=== PATIENT | female | born 1995 | race Caucasian/White ===

== ENCOUNTER 2022-07-03 12:27 | Outpatient (CLI) | payer MEDICAID, SELFPAY ==
[2022-07-03 14:33] LABS: Basophils Percent Auto 0.2 % (0.2-1.2); Eosinophils Absolute Auto 0.1 K/mm3 (0-0.3); Hematocrit 32.4 % (37.0-47.0); Hemoglobin 10.7 g/dL (12.0-15.0); Immature Granulocyte Absolute 0.07 K/mm3 (0.00-0.031); Immature Granulocyte Percent A 0.9 % (0-0.5); Lymphocytes Absolute Auto 1.82 K/mm3 (0.9-3.2); Lymphocytes Percent Auto 22.3 % (18.3-44.2); Mean Corpuscular Volume 87.8 fl (80-100); Mean Platelet Volume 9.2 fl (7.4-10.4); Monocytes Absolute Auto 0.7 K/mm3 (0.1-0.6); Monocytes Percent Auto 8.2 % (2.6-8.5); Neutrophils Absolute Auto 5.5 K/mm3 (1.3-6.7); Neutrophils Percent Auto 67.4 % (45.5-73.1); Platelet Count Result 200 k/mm3 (150-375); Red Blood Count 3.69 M/mm3 (4.2-5.4); Red Cell Distribution Width 12.3 % (11.5-14.5); White Blood Count 8.2 K/mm3 (4.5-10.0)
[2022-07-03 14:41] LABS: Glucose 1 Hour PP 50gm Dose 109 mg/dL
[2022-07-03 17:46] LABS: HIV 1/2 Ab P24 Ag 1.35
[2022-07-03 17:52] LABS: HIV 1/2 Ab P24 Ag Result Reactive (Negative)
[2022-07-03 21:38] LABS: HIVc Retest 1 1.43; HIVc Retest 2 1.43
[2022-07-06 14:26] LABS: HIV 1 2 Ag Ab 4th Gen w Rflxs Non-reactive (Non-reactive)
== END 2022-07-03 12:28 | disposition home or self-care (01) ==
LOC: ANHLAB 12:30
PROVIDERS: Visit Provider Student in an Organized Health Care Education/Training Program
DX: Z34.90 Encounter for supervision of normal pregnancy, unspecified, unspecified trimester (principal)
CPT/HCPCS: 36415; 82947; 85025; 86703; 87389; G0432

== ENCOUNTER 2022-07-07 10:31 | Observation (INO) | payer OTHER, SELFPAY ==
[2022-07-07 10:46] VITALS: BP 131/82; PULSE 93
[2022-07-07 10:47] VITALS: BMI 28.2
--- NOTE | 2022-07-07 10:47 | LDADM ---
This patient, Megan Granda, was admitted to OB Post 117 on 07/07/22 at 10:31. Plans for labor, pain management and were discussed with patient. Patient/family oriented to hospital policies and general routines including ID bracelet, bed and alarms, visiting hours, pain management, procedures, bathroom and other care routines, personal items, smoking policy, room service/diet and guest tray routines, security routines, and visiting hours. Patient/Family are encouraged to report perceived risks to care and to ask questions if they do not understand what they are told or what they should do. See OBIX for further documentation.
[2022-07-07 10:54] VITALS: BP 110/81; PULSE 102
--- NOTE | 2022-07-07 11:06 | PC.NURSE ---
Patient came in with mild vaginal spotting. Not enough to wear a pantyliner. Obtained NST and called Dr. Le to update on patient status. Verbal orders to discharge patient. Per Dr. Le, patient to return to OB if bleeding saturates two pads in under an hour. Patient to follow up in office. Patient verbalizes understanding of care plan and has no questions at this time.
--- NOTE | 2022-07-10 13:06 | PM.OBTRLD ---
OB - Triage/Final Diagnosis Visit Information Date of evaluation: 07/07/22 Reason for evaluation: threatened labor Comments/Additional reasons for admission: I have assessed the risk for this patient, Megan Granda, and determined that she would benefit from observation care.
== END 2022-07-07 11:15 | disposition home or self-care (01) ==
PROVIDERS: Admitting Provider Student in an Organized Health Care Education/Training Program; Visit Provider Student in an Organized Health Care Education/Training Program
DX: O47.03 False labor before 37 completed weeks of gestation, third trimester (principal); Z3A.30 30 weeks gestation of pregnancy
CPT/HCPCS: G0378; G0379

== ENCOUNTER 2022-09-05 15:57 | Inpatient (IN) | payer OTHER, SELFPAY ==
[2022-09-05] VITALS (15 sets, daily range): BP systolic 115–141; BP diastolic 63–91; PULSE 79–96; RESP 16–18; TEMP 36.4–36.8; BMI 30.8
--- NOTE | 2022-09-05 16:29 | LDADM ---
This patient, Megan Granda, was admitted to Labor/Delivery/Recovery 103 on 09/05/22 at 15:57. Plans for labor, pain management and were discussed with patient. Patient/family oriented to hospital policies and general routines including ID bracelet, bed and alarms, visiting hours, pain management, procedures, bathroom and other care routines, personal items, smoking policy, room service/diet and guest tray routines, infant security routines, and visiting hours. Patient/Family are encouraged to report perceived risks to care and to ask questions if they do not understand what they are told or what they should do. See OBIX for further documentation.
[2022-09-05 16:31] LABS: Basophils Percent Auto 0.1 % (0.2-1.2); Eosinophils Percent Auto 0.2 % (0-4.4); Hematocrit 33.3 % (37.0-47.0); Hemoglobin 11.1 g/dL (12.0-15.0); Immature Granulocyte Absolute 0.04 K/mm3 (0.00-0.031); Immature Granulocyte Percent A 0.4 % (0-0.5); Lymphocytes Absolute Auto 1.83 K/mm3 (0.9-3.2); Lymphocytes Percent Auto 19.4 % (18.3-44.2); Mean Corpuscular HGB Conc 33.3 g/dl (32-36); Mean Corpuscular Hemoglobin 29.2 pg (26-34); Mean Corpuscular Volume 87.6 fl (80-100); Monocytes Absolute Auto 0.8 K/mm3 (0.1-0.6); Monocytes Percent Auto 8.8 % (2.6-8.5); Neutrophils Absolute Auto 6.7 K/mm3 (1.3-6.7); Neutrophils Percent Auto 71.1 % (45.5-73.1); Platelet Count Result 244 k/mm3 (150-375); White Blood Count 9.4 K/mm3 (4.5-10.0)
[2022-09-05] MEDS: DINOPROSTONE 10 MG VAG INSERT VAGINAL (16:56)
--- NOTE | 2022-09-05 18:48 | WPDANESEPP ---
Anes - Eval Pre Procedure Procedure: Labor Epidural Date/Time: 09/05/22 18:48 Surgeon: Graeme Preop Diagnosis: Pain c contractions Pre Op Diagnosis: IOL Patient Data Age: 26 Gender: F Height: 1.65 m Weight: 84 kg Last Vital Signs Temp 36.6 C 09/05/22 16:27 Pulse 81 09/05/22 18:45 Resp 18 09/05/22 16:27 BP 132/72 09/05/22 18:45 Allergies Allergy/AdvReac Type Severity Reaction Status Date / Time No Known Allergies Allergy Verified 08/31/22 10:38 Home Medications Medication Instructions Recorded Confirmed Type prenat.vits,mimi,wnw-hmih-ckrnw 1 tablet PO DAILY 06/20/22 09/05/22 History Laboratory Tests 09/05/22 09/05/22 09/05/22 16:23 16:23 16:23 WBC 9.4 K/mm3 K/mm3 (4.5-10.0) RBC 3.80 M/mm3 L M/mm3 (4.2-5.4) Hgb 11.1 g/dL L g/dL (12.0-15.0) Hct 33.3 % L % (37.0-47.0) MCV 87.6 fl fl (80-100) MCH 29.2 pg pg (26-34) MCHC 33.3 g/dl g/dl (32-36) RDW 13.0 % % (11.5-14.5) Plt Count 244 k/mm3 k/mm3 (150-375) MPV 10.0 fl fl (7.4-10.4) Immature Gran % (Auto) 0.4 % % (0-0.5) Neut % (Auto) 71.1 % % (45.5-73.1) Lymph % (Auto) 19.4 % % (18.3-44.2) [place] % (Auto) 8.8 % H % (2.6-8.5) Eos % (Auto) 0.2 % % (0-4.4) Baso % (Auto) 0.1 % L % (0.2-1.2) Lymph # (Auto) 1.83 K/mm3 K/mm3 (0.9-3.2) [place] # (Auto) 0.8 K/mm3 H K/mm3 (0.1-0.6) Eos # (Auto) 0.0 K/mm3 K/mm3 (0-0.3) Baso # (Auto) 0.0 K/mm3 K/mm3 (0.0-0.1) Abs Immat Gran (auto) 0.04 K/mm3 H K/mm3 (0.00-0.031) Absolute Neuts (auto) 6.7 K/mm3 K/mm3 (1.3-6.7) Absolute Nucleated RBC 0.0 K/mm3 K/mm3 (0.0-0.012) Nucleated RBC % 0.0 % % (0.0-0.2) RPR Pending Blood Type O Positive Antibody Screen Negative Patient hx anesthesia problems: none Family hx anesthesia problems: none Results Review: All pre-operative results and documents have been reviewed as part of the pre-operative evaluation. 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
[2022-09-05] MEDS: LACTATED RINGERS 1,000 ML 125 ML IV CONT (19:11)
[2022-09-06] VITALS (9 sets, daily range): BP systolic 126–149; BP diastolic 78–93; PULSE 71–91; RESP 16–18; TEMP 36.6–36.9
[2022-09-06] MEDS: miSOPROStol 25 MCG TABLET VAGINAL (06:35)
--- NOTE | 2022-09-06 12:09 | PM.IMHP ---
H&P: HPI History of Present Illness Date/Time: 09/06/22 12:09 Chief Complaint: Intrauterine at term Narrative: 26-year-old G1 who presents for elective induction of labor at term Review of Systems Cardiovascular: Cardiovascular: Denies chest pain, Denies leg edema, Denies palpitations, Denies dyspnea and Denies dyspnea on exertion Respiratory: Respiratory: Denies cough, Denies dyspnea and Denies dyspnea on exertion Gastrointestinal: Gastrointestinal: Denies abdominal pain, Denies constipation, Denies diarrhea, Denies nausea and Denies vomiting Genitourinary: Genitourinary: Denies hematuria, Denies urinary frequency, Denies dysuria, Denies pelvic pain, Denies urinary incontinence and Denies vaginal discharge Neurologic: Reports system reviewed and no additional complaints, except as documented Psychiatric: Psychiatric: Reports no additional psychiatric complaints Endocrine: Endocrine: Denies palpitations PMFSH Family History Family History Grandparent Heart disease Lung cancer Social History Social History Smoking status: Never smoker Alcohol intake: never Substance use: never Lack of Transportation: No Lack of Food: Never True Current Housing: I Have Housing Concerned About Future Housing: No Difficulty Paying Gas/Electric Bills: No Difficulty Paying for Meds: No Currently Unemployed: No Education: Associate Degree Difficulty w/ Childcare or Family Care: No Occupation/Education: occupation 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 Gender identity (if verbalized by the patient): Female Sexual Orientation (if Verbalized by the Patient): Straight or Heterosexual Spiritual care concerns: No Meds Home Medications and Allergies Home Medications Medication Instructions Recorded Confirmed Type prenat.vits,mimi,jxo-xbob-skklt 1 tablet PO DAILY 06/20/22 09/05/22 History Allergies Allergy/AdvReac Type Severity Reaction Status Date / Time No Known Allergies Allergy Verified 08/31/22 10:38 Vital Signs Vital Signs - 24 hr 09/05/22 16:27 09/05/22 16:30 09/05/22 16:45 Temperature 97.8 F Pulse Rate 94 95 96 Respiratory Rate 18 Blood Pressure 124/83 126/74 141/88 H Oxygen Delivery 09/05/22 16:58 09/05/22 17:00 09/05/22 17:15 Temperature Pulse Rate 84 83 87 Respiratory Rate Blood Pressure 123/76 125/82 115/71 Oxygen Delivery 09/05/22 17:30 09/05/22 17:45 09/05/22 18:00 Temperature Pulse Rate 87 87 91 Respiratory Rate Blood Pressure 119/63 141/84 H 126/81 Oxygen Delivery 09/05/22 18:15 09/05/22 18:30 09/05/22 18:45 Temperature Pulse Rate 86 82 81 Respiratory Rate Blood Pressure 118/76 125/63 132/72 Oxygen Delivery 09/05/22 19:00 09/05/22 20:00 09/05/22 20:01 Temperature 98.3 F 97.5 F L Pulse Rate 79 89 Respiratory Rate 18 16 Blood Pressure 125/64 139/91 H Oxygen Delivery 09/06/22 00:04 09/06/22 00:15 09/06/22 00:30 Temperature 97.8 F Pulse Rate 71 85 73 Respiratory Rate 18 Blood Pressure 141/91 H 126/82 139/83 Oxygen Delivery 09/06/22 00:45 09/06/22 01:00 09/06/22 01:15 Temperature Pulse Rate 75 84 74 Respiratory Rate Blood Pressure 137/78 138/93 H 140/91 H Oxygen Delivery 09/06/22 01:20 09/06/22 02:38 09/06/22 11:31 Temperature 98.5 F Pulse Rate 74 91 Respiratory Rate 16 16 Blood Pressure 149/93 H Oxygen Delivery Room Air Exam Const: General: no acute distress Eyes: EOM: EOMs intact bilaterally Neck: Neck: supple Thyroid: thyroid normal Chest: Breast/axilla inspection: normal inspection of the breasts Breast/axilla palpation: normal palpation of the breasts, normal palpation of the axillae and no axillary lymphadenopathy Resp: Effort & Inspection: normal respiratory effort Auscultation: cl
--- NOTE | 2022-09-06 12:43 | PM.OBDSVD ---
DS: Admitting Diagnosis Discharge Date 09/06/22 Admitting Diagnosis intrauterine at term DS: Discharge Diagnosis Discharge Diagnosis (1) Supervision of high risk , unspecified, third trimester: Code(s): O09.93 - Supervision of high risk , unspecified, third trimester Status: Acute OB - DS: Summary Hospital Course Hospital Course: 26-year-old G1 who presented for elective induction labor at 39 weeks 3 days. Patient was admitted for Cervidil induction of labor. Patient's cervix was found to be unfavorable after 1 dose of Cervidil. Patient then received 1 dose of vaginal Cytotec. The cervix remained unchanged and unfavorable. Discussed induction plan with patient. Patient was offered to continue with induction with another dose of Cervidil or 2 declined to continue induction of labor and be discharged home for further follow-up. Patient and discussed options privately. Patient elected not to continue with induction of labor. Patient would like to be discharged home. Labor precautions were discussed at length with patient. Patient will continue to have twice weekly NSTs performed. OB Procedures : None OB Procedures Intrapartum: Other ( cervical ripening attempted) OB Procedures: : None Status at Discharge Functional status at discharge: independent ambulation Overall status at discharge: patient is back to baseline Time Spent with Patient Time attestation: Total time spent providing and/or coordinating discharge services: Time spent: Greater than 30 minutes Exam Const: General: cooperative, healthy appearing, comfortable and no acute distress Resp: Effort & Inspection: normal respiratory effort and able to speak in complete sentences Cardio: Rate: regular rate GI: Inspection: normal to inspection GI Palp: Yes Soft to palpation and No Tenderness to palpation present (GI) : Manual OB Exam: dilated 1 cm, effaced 50% and station high DS: Data Data Completed and Pending Labs on day of discharge: Labs from last 24 hours 09/05/22 09/05/22 09/05/22 16:23 16:23 16:23 WBC 9.4 RBC 3.80 L Hgb 11.1 L Hct 33.3 L MCV 87.6 MCH 29.2 MCHC 33.3 RDW 13.0 Plt Count 244 MPV 10.0 Immature Gran % (Auto) 0.4 Neut % (Auto) 71.1 Lymph % (Auto) 19.4 [place] % (Auto) 8.8 H Eos % (Auto) 0.2 Baso % (Auto) 0.1 L Lymph # (Auto) 1.83 [place] # (Auto) 0.8 H Eos # (Auto) 0.0 Baso # (Auto) 0.0 Abs Immat Gran (auto) 0.04 H Absolute Neuts (auto) 6.7 Absolute Nucleated RBC 0.0 Nucleated RBC % 0.0 RPR Pending Blood Type O Positive Antibody Screen Negative Discharge Plan Discharge Discharging Clinician: Rivera Le Anticipated Discharge Date/Time: 09/06/22 12:08 Patient Disposition: Home, Self-Care Activity: as tolerated Diet: as tolerated Discharge Instructions: OB ANTEPARTUM DISCHARGE INSTRUCTIONS This information is given to help you properly care for yourself at home after your discharge from the hospital. Follow these instructions until your doctor tells you otherwise. DIET: Additional Diet Instructions: ACTIVITY: Additional Activity Instructions: RETURN TO LABOR AND DELIVERY IF YOU HAVE: Additional Reasons to Return to Labor and Delivery: Contractions may feel like abdominal pain, tightening, cramping, pressure, back ache, or thigh ache. FOLLOW-UP CARE: To see in/on Valuables released to patient or family? Medications from home returned to patient? IF YOU HAVE ANY QUESTIONS REGARDING THESE INSTRUCTIONS, PLEASE CALL [phone]. IF PROBLEMS ARISE, CALL YOUR PROVIDER. IF EMERGENCY CARE IS NEEDED, [facility]S EMERGENCY ROOM IS AVAILABLE 24 HOURS A DAY. Stand Alone Forms: General Discharge Information Follow-up/Referrals: Rivera Le MD [Physician] - Discharge Medications: Continued p
[2022-09-06 16:45] LABS: Rapid Plasma Reagin Non-Reactive (NonReactive)
== END 2022-09-06 12:13 | disposition home or self-care (01) | DRG 566 ==
PROVIDERS: Admitting Provider Student in an Organized Health Care Education/Training Program; Visit Provider Student in an Organized Health Care Education/Training Program
DX: O34.43 Maternal care for other abnormalities of cervix, third trimester (principal)
CPT/HCPCS: 36415; 85025; 86592; 86850; 86900; 86901; A9270; J7120

== ENCOUNTER 2022-09-14 09:23 | Outpatient (RCR) | payer OTHER, SELFPAY ==
[2022-08-24 12:36] VITALS: BP 126/84; PULSE 88
[2022-08-28 11:53] VITALS: BP 126/71; PULSE 82
[2022-08-31 11:52] VITALS: BP 134/85; PULSE 82
[2022-09-04 12:03] VITALS: BP 128/84; PULSE 90
[2022-09-07 09:54] VITALS: BP 139/77; PULSE 100
[2022-09-09 10:34] VITALS: BP 138/81; PULSE 82
[2022-09-11 11:51] VITALS: BP 136/80; PULSE 92
[2022-09-14 09:58] VITALS: BP 130/85; PULSE 74
== END 2022-10-21 19:51 | disposition home or self-care (01) ==
LOC: ANHOBOP 09:23
PROVIDERS: Visit Provider Student in an Organized Health Care Education/Training Program
DX: O43.893 Other placental disorders, third trimester (principal); Z3A.37 37 weeks gestation of pregnancy; Z3A.38 38 weeks gestation of pregnancy; Z3A.39 39 weeks gestation of pregnancy; Z3A.40 40 weeks gestation of pregnancy
CPT/HCPCS: 59025

== ENCOUNTER 2022-09-15 21:09 | Inpatient (IN) | payer OTHER, SELFPAY ==
[2022-09-15 21:30] VITALS: BMI 31.1
[2022-09-16] VITALS (285 sets, daily range): BP systolic 87–198; BP diastolic 51–163; PULSE 29–159; RESP 12–22; TEMP 36.8–37.7; O2SAT 81–100
[2022-09-16] MEDS: LACTATED RINGERS 1,000 ML 125 ML IV CONT ×3 (00:10→12:40)
[2022-09-16] MEDS: fentaNYL CITRATE INJ (*CRX) 100 MCG/2 ML VIAL IV PUSH (00:10)
[2022-09-16 00:20] LABS: Basophils Percent Auto 0.1 % (0.2-1.2); Eosinophils Percent Auto 0.1 % (0-4.4); Hematocrit 35.7 % (37.0-47.0); Hemoglobin 12.3 g/dL (12.0-15.0); Immature Granulocyte Percent A 0.7 % (0-0.5); Lymphocytes Absolute Auto 2.45 K/mm3 (0.9-3.2); Lymphocytes Percent Auto 16.3 % (18.3-44.2); Mean Corpuscular HGB Conc 34.5 g/dl (32-36); Mean Corpuscular Hemoglobin 29.6 pg (26-34); Mean Corpuscular Volume 85.8 fl (80-100); Mean Platelet Volume 10.4 fl (7.4-10.4); Monocytes Absolute Auto 1.2 K/mm3 (0.1-0.6); Monocytes Percent Auto 8.2 % (2.6-8.5); Neutrophils Absolute Auto 11.2 K/mm3 (1.3-6.7); Neutrophils Percent Auto 74.6 % (45.5-73.1); Platelet Count Result 270 k/mm3 (150-375); Red Blood Count 4.16 M/mm3 (4.2-5.4); Red Cell Distribution Width 12.6 % (11.5-14.5); White Blood Count 15.1 K/mm3 (4.5-10.0)
--- NOTE | 2022-09-16 00:35 | WPDANESEPP ---
Anes - Eval Pre Procedure Procedure: Labor epidural Date/Time: 09/16/22 00:35 Surgeon: Rickey Preop Diagnosis: Abdominal pain with contractions Pre Op Diagnosis: Labor Patient Data Age: 26 Gender: F Height: 1.65 m Weight: 85 kg Last Vital Signs Pulse Ox 95 09/16/22 00:33 Allergies Allergy/AdvReac Type Severity Reaction Status Date / Time No Known Allergies Allergy Verified 09/11/22 10:38 Home Medications Medication Instructions Recorded Confirmed Type prenat.vits,mimi,qco-ynle-jtsdp 1 tablet PO DAILY 06/20/22 09/09/22 History Laboratory Tests 09/16/22 09/16/22 00:13 00:13 WBC 15.1 K/mm3 H K/mm3 (4.5-10.0) RBC 4.16 M/mm3 L M/mm3 (4.2-5.4) Hgb 12.3 g/dL g/dL (12.0-15.0) Hct 35.7 % L % (37.0-47.0) MCV 85.8 fl fl (80-100) MCH 29.6 pg pg (26-34) MCHC 34.5 g/dl g/dl (32-36) RDW 12.6 % % (11.5-14.5) Plt Count 270 k/mm3 k/mm3 (150-375) MPV 10.4 fl fl (7.4-10.4) Immature Gran % (Auto) 0.7 % H % (0-0.5) Neut % (Auto) 74.6 % H % (45.5-73.1) Lymph % (Auto) 16.3 % L % (18.3-44.2) [place] % (Auto) 8.2 % % (2.6-8.5) Eos % (Auto) 0.1 % % (0-4.4) Baso % (Auto) 0.1 % L % (0.2-1.2) Lymph # (Auto) 2.45 K/mm3 K/mm3 (0.9-3.2) [place] # (Auto) 1.2 K/mm3 H K/mm3 (0.1-0.6) Eos # (Auto) 0.0 K/mm3 K/mm3 (0-0.3) Baso # (Auto) 0.0 K/mm3 K/mm3 (0.0-0.1) Abs Immat Gran (auto) 0.10 K/mm3 H K/mm3 (0.00-0.031) Absolute Neuts (auto) 11.2 K/mm3 H K/mm3 (1.3-6.7) Absolute Nucleated RBC 0.0 K/mm3 K/mm3 (0.0-0.012) Nucleated RBC % 0.0 % % (0.0-0.2) RPR Pending : gestational age HCG: positive Patient hx anesthesia problems: none Family hx anesthesia problems: none Results Review: All pre-operative results and documents have been reviewed as part of the pre-operative evaluation. [facility] Past Medical History Medical History Anxiety and depression Asthma Overweight (BMI 25.0-29.9) and not yet delivered Family History Family History Grandparent Heart disease Lung cancer Social History Social History Smoking status: Never smoker Alcohol intake: never Substance use: never Lack of Transportation: No Lack of Food: Never True Current Housing: I Have Housing Concerned About Future Housing: No Difficulty Paying Gas/Electric Bills: No Difficulty Paying for Meds: No Currently Unemployed: No Education: Associate Degree Difficulty w/ Childcare or Family Care: No Occupation/Education: occupation 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
[2022-09-16] MEDS: LACTATED RINGERS 500 ML 999 ML IV CONT (00:50)
[2022-09-16] MEDS: TERBUTALINE SULFATE 1 MG/ML VIAL 0.25 MG SUB-Q (01:25)
[2022-09-16] MEDS: ONDANSETRON INJ 4 MG/2 ML VIAL IV PUSH ×2 (01:29→12:09)
--- NOTE | 2022-09-16 03:17 | LDADM ---
This patient, Megan Granda, was admitted to Labor/Delivery/Recovery 105 on 09/15/22 at 21:09. Plans for labor, pain management and were discussed with patient. Patient/family oriented to hospital policies and general routines including ID bracelet, bed and alarms, visiting hours, pain management, procedures, bathroom and other care routines, personal items, smoking policy, room service/diet and guest tray routines, infant security routines, and visiting hours. Patient/Family are encouraged to report perceived risks to care and to ask questions if they do not understand what they are told or what they should do. See OBIX for further documentation.
[2022-09-16] MEDS: OXYTOCIN 30 UNITS/NS 500 ML 30 UNITS/500 ML BAG IV CONT (07:33)
[2022-09-16] MEDS: ceFAZolin 2 GM/D5W 50 ML 2 GM/50 ML BAG IVPB (13:34)
--- NOTE | 2022-09-16 14:24 | WPDHPUPDATE1 ---
History and Physical Update Update Date/Time: 09/16/22 14:24 Assessment: 1. 40 week intrauterine 2. Arrest of dilation Plan: 1. Proceed with primary low-transverse section History and Physical has been reviewed, including an updated exam of the patient. There are NO changes in the patient's condition. Risks, benefits, and alternatives have been discussed and questions answered. Patient agrees to proceed with procedure.
--- NOTE | 2022-09-16 14:25 | P.PCNOB_ITS ---
OB - Delivery Note Procedure Procedure: Procedures Operation Date: 09/16/22 13:45 <No data on this case meets the specified criteria> Intrapartal Events: Arrest of Dilation Induction method: None Delivery augmentation: Rupture of Membranes and Pitocin Delivery monitor: Internal FHT and Internal Uterine Route of delivery: Prior to decision for section, ACOG/SM labor guidelines were considered and discussed with the patient and staff. Decision made to proceed with the section.: Yes Specimen: Yes Quantitative Blood Loss (ml): 675 Anesthesia type: Epidural Disposition: Floor Complications: none Narrative: patient prepped and draped in usual manner for this procedure. Pfannenstiel incision was made and carried down to the fascia which was then extended bilaterally the length of the skin incision. Fascia was then sharply and bluntly dissected away from the rectus muscles and peritoneum readily entered. At bladder flap was developed without difficulty and uterus was scored in low transverse manner extended bilaterally the length of the lower segment. Upon entry into the uterus occiput posterior positioning was noted, and the vertex was delivered without difficulty rest of baby as well. Cord clamped cut and the placenta was removed manually. Uterus was exteriorized and closed using 0 Monocryl in a running interlocking manner all from the left angle to the right angle with good approximation hemostasis noted. Uterus was then returned to the abdomen the gutters were cleared of serosanguineous fluid and clots. Fascia was approximated using 0 Vicryl suture from the left angle midline of the right own midline with good approximation noted. Subcutaneous tissue was noted be hemostatic and approximated using 0 plain suture. Maria G were used to approximate the skin edges the patient was sent to recovery room in stable condition. [place] Baby Weeks of gestation at delivery: 40 Infant gender: Male Weight (pounds): 7 Weight (ounces): 10 presentation: vertex position: Other ( Direct occiput posterior) Placenta delivery description: Manual Removal Cord Vessel Description: 3 Vessels score one minute: 8 score five minutes: 9 AMG Delivery Billing Delivery Delivery: Delivery Charge
--- NOTE | 2022-09-16 14:25 | WPDOBADMIT ---
Obstetrics - Admit Note Admission Note: record reviewed. No pertinent additions to the history and/or any subsequent changes in the physical findings that are not consistent with the expected course of the were found. Additions to the history and/or subsequent changes in the physical findings follow. None.
--- NOTE | 2022-09-16 14:49 | P.PNAN_ITS ---
Anes - Eval Final PreProcedure Day of Procedure 09/16/22 14:49 Patient weight: obese Heart: regular rate and rhythm Lungs: normal air movement Airway: Mallampati scale class II Neurological: alert and oriented Last oral intake: 2 hours ASA classification: III Emergent: no Anesthetic plan: proceed Anesthesia type and monitoring: regional epidural Other findings: use existing epidural catheter Results Review: All pre-operative results and documents have been reviewed as part of the pre- operative evaluation. Informed Consent: The patient's anesthetic plan and its attendant risks and benefits were discussed with the patient/family/POA. Questions were solicited and answers provided to the satisfaction of the patient/family/POA.
[2022-09-16] MEDS: OXYTOCIN 30 UNITS/NS 500 ML 30 UNITS/500 ML BAG 125 UNITS IV CONT (15:06)
[2022-09-16] MEDS: MORPHINE SULFATE INJ (*CRX) 10 MG/ML AMP 3 MG IV PUSH (15:16)
--- NOTE | 2022-09-16 16:40 | OBPPTRN ---
Patient transferred to post room #282 via stretcher. Support person present. Oriented to unit, room, information board, rooming in, admission packet and security measures. Patient verbalizes understanding.
[2022-09-16] MEDS: KETOROLAC 30 MG/ML VIAL (*BKC) IV PUSH (17:28)
[2022-09-16] MEDS: SIMETHICONE 80 MG TAB.CHEW PO (20:50)
[2022-09-16] MEDS: HYDROcodone/acetaminophen (*CRX) 5-325 MG TABLET 1 TAB PO (20:50)
[2022-09-17 00:15] VITALS: BP 150/94; PULSE 68; RESP 18; TEMP 36.7; O2SAT 98
[2022-09-17] MEDS: HYDROcodone/acetaminophen (*CRX) 5-325 MG TABLET 1 TAB PO ×2 (00:15→04:33)
[2022-09-17] MEDS: IBUPROFEN 600 MG TABLET PO ×4 (00:15→20:20)
[2022-09-17 04:30] VITALS: BP 154/92; PULSE 54; RESP 18; TEMP 36.8; O2SAT 98
[2022-09-17] MEDS: SIMETHICONE 80 MG TAB.CHEW PO (04:33)
[2022-09-17 05:23] LABS: Basophils Absolute Auto 0.1 K/mm3 (0.0-0.1); Basophils Percent Auto 0.4 % (0.2-1.2); Eosinophils Percent Auto 0.1 % (0-4.4); Hemoglobin 10.1 g/dL (12.0-15.0); Immature Granulocyte Absolute 0.06 K/mm3 (0.00-0.031); Immature Granulocyte Percent A 0.4 % (0-0.5); Lymphocytes Absolute Auto 1.96 K/mm3 (0.9-3.2); Lymphocytes Percent Auto 13.8 % (18.3-44.2); Mean Corpuscular HGB Conc 33.7 g/dl (32-36); Mean Corpuscular Hemoglobin 29.6 pg (26-34); Mean Platelet Volume 10.6 fl (7.4-10.4); Monocytes Absolute Auto 1.3 K/mm3 (0.1-0.6); Monocytes Percent Auto 9.2 % (2.6-8.5); Neutrophils Absolute Auto 10.8 K/mm3 (1.3-6.7); Neutrophils Percent Auto 76.1 % (45.5-73.1); Platelet Count Result 166 k/mm3 (150-375); Red Blood Count 3.41 M/mm3 (4.2-5.4); Red Cell Distribution Width 12.9 % (11.5-14.5); White Blood Count 14.2 K/mm3 (4.5-10.0)
[2022-09-17] MEDS: HYDROcodone/acetaminophen (*CRX) 10-325 MG TABLET 1 TAB PO ×6 (07:59→23:24)
[2022-09-17] MEDS: DOCUSATE SODIUM 100 MG CAPSULE PO ×2 (07:59→17:07)
[2022-09-17] MEDS: MULTIVIT/MIN/PREN/FOL AC/IRON TABLET 1 TAB PO (07:59)
[2022-09-17 08:00] VITALS: BP 130/83; PULSE 63; RESP 16; TEMP 36.8; O2SAT 99
[2022-09-17 11:30] VITALS: BP 138/89; PULSE 68; RESP 16; TEMP 36.9; O2SAT 97
--- NOTE | 2022-09-17 12:18 | P.PNOB_ITS ---
OB - PN: Subj Subjective Date/time seen: 09/17/22 12:18 Postop day 1 status post primary . Overall she is doing well with good pain control diet tolerated has been ambulating without significant issues. Vital signs stable afebrile Abdomen positive bowel sounds soft bandage in place Labs: Noted Assessment: 1. Postop day 1 primary low-transverse section... doing well. Plan: 1. Will schedule for discharge tomorrow pending continued excellent progress. OB - PN: Obj Data Labs 09/17/22 04:42 Labs: Laboratory Results - last 24 hr 09/17/22 04:42 WBC 14.2 H RBC 3.41 L Hgb 10.1 L Hct 30.0 L MCV 88.0 MCH 29.6 MCHC 33.7 RDW 12.9 Plt Count 166 MPV 10.6 H Immature Gran % (Auto) 0.4 Neut % (Auto) 76.1 H Lymph % (Auto) 13.8 L [place] % (Auto) 9.2 H Eos % (Auto) 0.1 Baso % (Auto) 0.4 Lymph # (Auto) 1.96 [place] # (Auto) 1.3 H Eos # (Auto) 0.0 Baso # (Auto) 0.1 Abs Immat Gran (auto) 0.06 H Absolute Neuts (auto) 10.8 H Absolute Nucleated RBC 0.0 Nucleated RBC % 0.0 OB - PN A/P Time Spent With Patient Time: Total time spent is greater than 50% in coordination of care (as documented) at patient's floor/unit and/or counseling patient:
--- NOTE | 2022-09-17 12:20 | PM.OBDSVD ---
DS: Admitting Diagnosis Discharge Date 09/18/2022 Admitting Diagnosis DS: Discharge Diagnosis Discharge Diagnosis (1) , delivered: Code(s): O80 - Encounter for full-term uncomplicated delivery Status: Acute OB - DS: Summary OB Procedures : None OB Procedures Intrapartum: OB Procedures: : None Peripartum Data Procedures: Procedures Operation Date: 09/16/22 13:45 Actual Procedure Side Surgeon p Section Gibson Lang MD Time Spent with Patient Time attestation: Total time spent providing and/or coordinating discharge services: DS: Data Data Completed and Pending Pending studies at discharge: Pending at discharge 09/16/22 15:54 Surgical [PTH] Routine Labs on day of discharge: Labs from last 24 hours 09/17/22 04:42 WBC 14.2 H RBC 3.41 L Hgb 10.1 L Hct 30.0 L MCV 88.0 MCH 29.6 MCHC 33.7 RDW 12.9 Plt Count 166 MPV 10.6 H Immature Gran % (Auto) 0.4 Neut % (Auto) 76.1 H Lymph % (Auto) 13.8 L [place] % (Auto) 9.2 H Eos % (Auto) 0.1 Baso % (Auto) 0.4 Lymph # (Auto) 1.96 [place] # (Auto) 1.3 H Eos # (Auto) 0.0 Baso # (Auto) 0.1 Abs Immat Gran (auto) 0.06 H Absolute Neuts (auto) 10.8 H Absolute Nucleated RBC 0.0 Nucleated RBC % 0.0 Discharge Plan Discharge Discharging Clinician: Gibson Lang Patient Disposition: Home, Self-Care Activity: as tolerated Diet: as tolerated Wound Care Instructions: incision open to air Discharge Instructions: john to be removed and Steri-Strips placed at hospital postop visit in 1-2 days. 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
--- NOTE | 2022-09-17 15:30 | WPDANLDPN2 ---
Anes-Prog Note L&D Date/Time: 09/17/22 15:30 Comfortable throughout: section Neuraxial method: epidural Epidural/Spinal procedure site: clean & non-tender Neuro status: Neuro function grossly intact. Cardiovascular status: normal Respiratory status: normal Airway patency: baseline Mental status: baseline Post-Op hydration status: normal Vital Signs: Last Vital Signs Temp 36.9 C 09/17/22 11:30 Pulse 68 09/17/22 11:30 Resp 16 09/17/22 11:30 BP 138/89 09/17/22 11:30 Pulse Ox 97 09/17/22 11:30 O2 Del Method Room Air 09/17/22 11:30 Pain score (VAS): 3/10 I/O: Intake & Output 09/16/22 09/17/22 09/17/22 23:59 07:59 15:59 Intake Total 900 800 Output Total 8924 1700 2600 Balance -1222 -900 2600 Post-procedural complaints: none Patient feedback: Patient satisfied with anesthetic care.
--- NOTE | 2022-09-17 15:31 | WPDANLDNPN2 ---
Anes-Prog Note L&D-Neuraxial Date/Time: 09/17/22 15:31 Neuraxial medications: epidural PF morphine Opiod-related complaints: none Patient feedback: Patient satisfied with post-operative pain management.
[2022-09-17 20:20] VITALS: BP 146/89; PULSE 73; RESP 18; TEMP 36.5; O2SAT 100
[2022-09-18] MEDS: IBUPROFEN 600 MG TABLET PO (03:38)
[2022-09-18] MEDS: HYDROcodone/acetaminophen (*CRX) 10-325 MG TABLET 1 TAB PO ×3 (03:38→13:53)
[2022-09-18 07:50] VITALS: BP 143/79; PULSE 71; RESP 16; TEMP 36.9; O2SAT 100
[2022-09-18] MEDS: MULTIVIT/MIN/PREN/FOL AC/IRON TABLET 1 TAB PO (07:56)
[2022-09-18] MEDS: DOCUSATE SODIUM 100 MG CAPSULE PO (07:56)
[2022-09-18] MEDS: SIMETHICONE 80 MG TAB.CHEW PO (07:57)
[2022-09-18] MEDS: TETANUS,DIPHTHERIA,AC PERTUSSIS ADULT (0.5 ML) BOOSTRIX IM (13:54)
--- NOTE | 2022-09-18 14:10 | PC.NURSE ---
Patient refused MMR vaccine at 09/18/2022 0715
[2022-09-18 16:43] LABS: Rapid Plasma Reagin Non-Reactive (NonReactive)
[2022-09-19 10:24] VITALS: BP 150/84; PULSE 85; RESP 18; TEMP 36.8; O2SAT 100
== END 2022-09-18 14:24 | disposition home or self-care (01) | DRG 540 ==
LOC: ANHLDR 09-16 00:09 → ANHOB2 09-17 12:21 → ANHLDR 09-19 09:12 → ANHOB2 09-19 09:12
PROVIDERS: Admitting Provider Student in an Organized Health Care Education/Training Program; Visit Provider Obstetrics & Gynecology
PROC: 10D00Z1 Extraction of Products of Conception, Low, Open Approach (ICD-10-PCS; CPT 59514; principal; 2022-09-16 13:45)
DX: O62.0 Primary inadequate contractions (principal); Z37.0 Single live birth; Z3A.41 41 weeks gestation of pregnancy
CPT/HCPCS: 36415; 85025; 86592; 86850; 86900; 86901; 88307; 90715; A9270; J0131; J0456; J0690; J1200; J1885; J2175; J2270; J2274; J2405; J2590; J2704; J2795; J3010; J3105; J7120

== ENCOUNTER 2022-09-19 10:50 | Outpatient (CLI) | payer OTHER, SELFPAY ==
[2022-09-19 11:11] VITALS: BP 137/86; PULSE 79
[2022-09-19 11:16] LABS: Basophils Percent Auto 0.3 % (0.2-1.2); Eosinophils Absolute Auto 0.2 K/mm3 (0-0.3); Eosinophils Percent Auto 2.1 % (0-4.4); Hematocrit 30.3 % (37.0-47.0); Hemoglobin 10.2 g/dL (12.0-15.0); Immature Granulocyte Absolute 0.04 K/mm3 (0.00-0.031); Immature Granulocyte Percent A 0.5 % (0-0.5); Lymphocytes Absolute Auto 1.58 K/mm3 (0.9-3.2); Lymphocytes Percent Auto 17.8 % (18.3-44.2); Mean Corpuscular HGB Conc 33.7 g/dl (32-36); Mean Corpuscular Hemoglobin 29.5 pg (26-34); Mean Corpuscular Volume 87.6 fl (80-100); Mean Platelet Volume 9.8 fl (7.4-10.4); Monocytes Absolute Auto 0.6 K/mm3 (0.1-0.6); Monocytes Percent Auto 6.7 % (2.6-8.5); Neutrophils Absolute Auto 6.4 K/mm3 (1.3-6.7); Neutrophils Percent Auto 72.6 % (45.5-73.1); Platelet Count Result 252 k/mm3 (150-375); Red Blood Count 3.46 M/mm3 (4.2-5.4); Red Cell Distribution Width 12.8 % (11.5-14.5); White Blood Count 8.9 K/mm3 (4.5-10.0)
[2022-09-19 11:26] LABS: Alanine Aminotransferase 23 U/L (6-35); Albumin Level 3.6 g/dL (3.5-5.1); Alkaline Phosphatase 109 U/L (38-126); Anion Gap 4 mmol/L (8-16); Aspartate Amino Transferase 36 U/L (14-36); Bilirubin,Total 0.5 mg/dL (0.2-1.3); Blood Urea Nitrogen 9 mg/dL (7-17); Calcium 8.5 mg/dL (8.4-10.2); Carbon Dioxide 27 mmol/L (22-30); Chloride 100 mmol/L (98-107); Estimated Glomerular Filt Rate > 60; Glucose 77 mg/dL (65-110); Potassium 3.8 mmol/L (3.4-5.0); Sodium 131 mmol/L (137-145); Uric Acid 6.2 mg/dL (2.5-7.5)
[2022-09-19 11:30] VITALS: BP 148/94; PULSE 78
[2022-09-19 12:00] VITALS: BP 140/88; PULSE 74
--- NOTE | 2022-09-19 12:16 | PC.NURSE ---
1158: RN called Dr. Le to inform him of patient's blood pressure, and lab results, Orders to send patient home with information about high blood pressure and parameters on when to call the office. Orders to have patient schedule an appointment with the office for a blood pressure check on or Sunday.
== END 2022-09-19 12:20 ==
LOC: ANHOBOP 10:54 → ANHOBPP 10:54
PROVIDERS: Visit Provider Student in an Organized Health Care Education/Training Program
DX: R03.0 Elevated blood-pressure reading, without diagnosis of hypertension (principal)
CPT/HCPCS: 36415; 80053; 84550; 85025; 99199

== ENCOUNTER 2024-09-15 16:23 | Observation (INO) | payer BC, SELFPAY ==
[2024-09-15] VITALS (41 sets, daily range): BP systolic 104–119; BP diastolic 61–79; PULSE 75–98; O2SAT 97–100; BMI 29.1
--- NOTE | 2024-09-15 16:30 | OBADM ---
This patient, Megan Granda, admitted to the OB room OB Post 115 for observation. Patient/family oriented to hospital policies and general routines including ID bracelet, bed and alarms, visiting hours, pain management, procedures, bathroom and other care routines, personal items, smoking policy, room service/diet, and visiting hours. Patient/Family are encouraged to report perceived risks to care and to ask questions if they do not understand what they are told or what they should do.
--- OUTSIDE RECORDS SUMMARY | 2024-09-15 16:34 | XMS_ITS | Clinical Summary ---
Author Organization [facility] Address [address] [place] [address] Care Team Providers Care Electro Plater Name Role Phone Unavailable Primary Care Provider Unavailabl e Source Comments [facility],non-owned Affiliates and Associated Physician Practices is amultiple site organization consisting of ambulatory clinics and hospital sitesin [place], [place], [place] and [place]. This disclosure is being madepursuant to the Care Everywhere program and may not contain all information available regarding this patient. Last updated 18.[facility] Allergies No known active allergies Medications Be aware that medications may not be up to date on this document. Always verify current medications with the patient. No known medications Social History Tobacco Use Types Packs/Day Years Used Date Smoking Tobacco: Never Smokeless Tobacco: Never Sex and Gender Information Value Date Recorded Sex Assigned at Not on file Gender Identity Not on file Sexual Orientation Not on file Plan of Treatment Health Maintenance Due Date Last Done Comments PAP SMEAR 1993 HIV SCREENING 2008 HEPATITIS C SCREENING 10/22/2011 DTAP/TDAP/TD VACCINES (1 - Tdap) 2012 HEPATITIS B VACCINE (1 of 3 - 19+ 3-dose series) 2012 COVID-19 VACCINE ( - 2023-2 5 season) 2024 INFLUENZA VACCINE (#1) 2024 DEPRESSION SCREENING 08/06/2024 ZOSTER VACCINE (1 of 2) 10/27/2043 HIB VACCINE Aged Out No longer eligi ble based on patient's age to complete this topic HPV VACCINE Aged Out No longer eligi ble based on patient's age to complete this topic MENINGOCOCCAL (Group B) VACCINE Aged Out No longer eligible based on patient's age to complete this topic MENINGOCOCCAL VACCINE Aged Out No mario saira eligible based on patient's age to complete this topic PNEUMOCOCCAL VACCINE Aged Out No long er eligible based on patient's age to complete this topic
--- OUTSIDE RECORDS SUMMARY | 2024-09-15 16:34 | XMS_ITS | Referral Summary ---
Author Organization [facility] Address [address] [address] Care Team Providers Care Classification Analyst Name Role Phone Unavailable Primary Care Provider Unavailabl e Source Comments [facility],non-owned Affiliates and Associated Physician Practices is amultiple site organization consisting of ambulatory clinics and hospital sitesin [place], [place], [place] and [place]. This disclosure is being madepursuant to the Care Everywhere program and may not contain all information available regarding this patient. Last updated 18.[facility] Allergies No known active allergies Medications Be [...] Orientation Not on file Plan of Treatment Not on file
--- OUTSIDE RECORDS SUMMARY | 2024-09-15 16:34 | XMS_ITS | Clinical Summary ---
Author Organization [address] Address [address] [place] [id number] Care Team Providers Care Veneer Department Manager Name Role Phone Perla Muñoz Primary Care Provider [phone] Allergies No known active allergies Medications albuterol (PROAIR DIGIHALER) 90 mcg/actuation inhaler daily as needed Active cyanocobalamin (Vitamin B-12) 1,000 mcg tablet Take 1 tablet (1,000 mcg total) by mouth daily Active cholecalciferol (VITAMIN D-3) 2000 unit tablet Active mv-mn/iron fum/FA/omega3,6 ,9#3 (WOMEN'S MULTI ORAL) Take by mouth Acti ve fluconazole (DIFLUCAN) 150 mg tabletIndicatio ns:Vaginal discharge Take one tab now. Repeat in 7 days if symptoms persist. 2 tablet 02/28/2024 Active Active Problems Problem Noted Date Diagnosed Date Routine adult health maintenance 10/01/2023 Overview (10/01/2023): Health Maintenance: -PCV20: N/A -Tdap vaccine: 2022 -Influenza vaccine: -Shingles vaccine: N/A -Colonoscopy: N/A -Last WWE: 02/02/22 -Last Mammogram: N/A -Last DEXA: N/A -Last eye exam: N/A -Last MHA: N/A Assessment & Plan (10/02/2023 7:50 AM GENERAL PURCHASING AGENT): Health Maintenance: -PCV20: N/A -Tdap vaccine: 2022 -Influenza vaccine: due -Shingles vaccine: N/A -Colonoscopy: N/A -Last WWE: 02/02/22 -Last Mammogram: N/A -Last DEXA: N/A -Last eye exam: N/A -Last MHA: N/A Recommend annual flu shots. Patient is otherwise up-to-date on health maintenance. Continue with healthy diet and exercise habits. See me annually for routine physicals. Resolved Problems Problem Noted Date Diagnosed Date Resolved Date Dehydration, mild 12/21/2022 12/21/2022 10/01/2023 Nausea and vomiting during p regnancy prior to 22 weeks gestation 01/26/2022 12/21/2022 10/01/2023 History of COVID-19 10/15/2020 12/21/2022 10/01/19 24 Immunizations Name Administration Dates Next Due DTP 02/26/1995,07/06/1994,02/24/1994 DTP / HiB 02/21/1996 DTaP 02/08/1999 H1N1 Inj 05/27/2009 Hep B, Adolescent or Pediatric 02/26/1995,1993,02/24/1994 HiB 02/26/1995,07/06/1994,02/24/1994 Influenza, Quadrivalent, Spl it, Preservative Free, Intramuscular 04/26/2022 Influenza, Trivalent, IM (MDV) 06/01/2011 Influenza, Unspecified 05/06/2023(Deferred: Iris ent Refused) MMR 02/08/1999,02/26/1995 OPV 02/08/1999, 5,07/06/1994,02/24 PPD TEST 07/26/2021 Tdap 09/18/2022,03/11/2008 Varicella 12/10/1998 Surgical History Surgery Date Site/Laterality Comments SECTION September 16, 2022 Medical History Medical History Date Comments Anxiety 2013 Depression 2013 Family History Medical History Relation Name Comments Cancer Maternal Grandfather Jamari Leal Heart disease Maternal Grandmother Dimple Leal Cancer Paternal Grandfather Dc Hassanleandrokett Alzheimer's disease Paternal Grandmother Cookie Martínez t Relation Name Status Comments Maternal Grandfather Jamari Hernandezinger Maternal Grandmother Dimple Leal Paternal Grandfather Dc Granda Paternal Grandmother Cookie Granda Social History Tobacco Use Types Packs/Day Years Used Date Smoking Tobacco: Never Smokeless Tobacco: Never Tobacco Cessation:Counseling Given: Not Answered AUDIT-C Answer Date Recorded Q1: How often do you have a drink containing alc ohol? 2-4 times a month 10/02/2023 Q2: How many drinks containi ng alcohol do you have on a typical day when you are drinking? 1 or 2 10/02/2023 Q3: How often do you have si x or more drinks on one occasion? Less than monthly 10/02/2023 PHQ-2 Answer Date Recorded PHQ-2 Total Score (If total score is 3 or more points, staff should administer the PHQ-9) 0 10/02/2023 Comments No Sex and Gender Information Value Date Recorded Sex Assigned at Not on file Legal Sex Female 2:18 PM CDT Gender Identity Female 09/18/2023 8:46 PM GENERAL PURCHASING AGENT Sexual Orientation Straight 09/18/2023 8: 46 PM GENERAL PURCHASING AGENT Obstetrics History Last Filed Vital Signs Vital Sign Reading Time Taken Comments Blood Pressure 102/60 02/28/2024 1:34 PM CDT Pulse 88 02/28/2024 1:34 PM CDT Temperature 36.3 C (97.4 F) 02/28/2024 1:34 PM CDT Respiratory Rate 18 02/28/2024 1:34 PM CDT Oxygen Saturation 98% 02/28/2024 1:34 PM CDT Inhaled Oxygen Concentration - - Weight 74.6 kg (164 lb 6.4 oz) 02/28/2024 1:34 P M CDT Height 165.1 cm (5' 5 ) 02/28/2024 1:34 PM CDT Body Mass Index 27.36 02/28/2024 1:34 PM CDT Plan of Treatment Health Maintenance Due Date Last Done Comments Hepatitis C Screening 1993 Covid-19 Vaccine ( season) 2024 11/15/2020, 10/25/2020 Influenza Vaccine (#1) 2024 04/26/2022, 2010 Depression Screening 10/02/2024 10/02/2023, 10/02/19 24 Regular Well Visit/Exam 18-64 10/02/2024 10/02/2023 Cervical Cancer Screening 02/02/2027 02/02/2022 DTaP/Tdap/Td Vaccine (8 - Td or Tdap) 09/18/2032 09/18/2022, 03/11/2008, 02/08/1999, Additional history exists Varicella Vaccines Discontinued 12/10/1998 HPV Vaccines Aged Out No longer eligi ble based on patient's age to complete this topic Pneumococcal vaccine <65 Aged Out No longer eligible based on patient's age to complete this topic Procedures Procedure Name Priority Date/Time Associated Diagnosis Comments PAP SMEAR Routine 02/02/2022 from Last 3 Months or Most Recently Relevant to Health Maintenance Results * HM PAP SMEAR (02/02/2022) Historical Provider HEALTH MAINTENANCE Final Result from Last 3 Months or Most Recently Relevant to Health Maintenance Insurance [facility] Care Teams Veneer Department Manager Relationship Specialty Start Date End Date Perla Muñoz PA [address] [place], [place] [phone] PCP - General Family Medicine 10/02/23
--- OUTSIDE RECORDS SUMMARY | 2024-09-15 16:34 | XMS_ITS | Data Portability ---
Author Organization [facility] [place] Address [address] [place] [address] [place] [address] Care Team Providers Care Physician Office Assistant Name Role Phone STEVEN MOORE Primary Care Provider Assessment No assessment recorded. Plan of Treatment Reminders Order Date Submit Date Provider Last Modified By Organization Details Last Modified Time Details Appointments OB ROUTINE 2024 03:30P Lucien WAN MD Not available Not available Not available Lab None recorded. Referral None recorded. Procedures None recorded. Surgeries None recorded. Imaging US, obstetric , nuchal transluce ncy 2023 024 [email or web address] [place], [place], [address], 07/01/2024 18:14:52 US, obstetric , 1st trimester 2023 024 [email or web address] [place], [address], [place], [address], 07/01/2024 18:14:52 US, obstetric , 2nd or 3rd trimester [email or web address] [facility] [address], [place], [address], 08/28/2024 21:13:52 Medication Orders None recorded. Patient TargetsNo targets recorded. Patient InstructionsNo instructions recorded. Reason for Referral None Reported. Results Created Date Observation Date Name Description Value Unit Range Abnormal Flag Note LastModifiedBy Organization Detail LastModifiedTime 07/07/20 24 07/07/2024 [UNIT Y] ANEUP LOIDY NIPT fraction 12.6% normal Not Available [facility] [address] [facility], [place], [address], 07/07/2024 17:17:14 07/07/20 24 07/07/2024 [UNIT Y] ANEUP LOIDY NIPT Rh(D) nipt RhD DETECT ED normal Not Available [facility] [address] [facility], [place], [address], 07/07/2024 17:17:14 07/07/20 24 07/07/2024 [UNIT Y] ANEUP LOIDY NIPT 22Q11.2 microdeletio n LOW RISK <1 in 10,000 normal Not Available [facility] [address] [facility], [place], [address], 07/07/2024 17:17:14 07/07/20 24 07/07/2024 [UNIT Y] ANEUP LOIDY NIPT sex chromosome aneuploidy NOT DETECT ED normal Not Available [facility] [address] [facility], [place], [address], 07/07/2024 17:17:14 07/07/20 24 07/07/2024 [UNIT Y] ANEUP LOIDY NIPT monosomy X LOW RISK <1 in 10,000 normal Not Available [facility] [address] [facility], [place], [address], 07/07/2024 17:17:14 07/07/20 24 07/07/2024 [UNIT Y] ANEUP LOIDY NIPT trisomy 13 LOW RISK <1 in 10,000 normal Not Available [facility] [address] [facility], [place], [address], 07/07/2024 17:17:14 07/07/20 24 07/07/2024 [UNIT Y] ANEUP LOIDY NIPT trisomy 18 LOW RISK <1 in 10,000 normal Not Available [facility] [address] [facility], [place], [address], 07/07/2024 17:17:14 07/07/20 24 07/07/2024 [UNIT Y] ANEUP LOIDY NIPT trisomy 21 LOW RISK <1 in 10,000 normal Not Available [facility] [address] [facility], [place], [address], 07/07/2024 17:17:14 07/07/20 24 07/07/2024 [UNIT Y] ANEUP LOIDY NIPT sex FEMALE normal Not Available [facility] [address] [facility], [place], [address], 07/07/2024 17:17:14 07/07/20 24 07/07/2024 [UNIT Y] ANEUP LOIDY NIPT gestation SINGLE TON normal Not Available [facility] [address] [facility], [place], [address], 07/07/2024 17:17:14 07/07/20 24 07/07/2024 [UNIT Y] ANEUP LOIDY NIPT for detailed report, see pdf See PDF normal Not Available [facility] [address] [facility], [place], [address], 07/07/2024 17:17:14 07/12/20 24 07/12/2024 [UNIT Y] RACHANA Lopez sickle cell disease/beta -thalassemia /hemoglobino pathies carrier screen NEGATI VE normal Not Available [facility] [address] [facility], [place], [address], 07/12/2024 03:15:13 07/12/20 24 07/12/2024 [UNIT Y] RACHANA Lopez alpha-thalas semia carrier screen NEGATI VE normal Not Available [facility] [address] [facility], [place], [address], 07/12/2024 03:15:13 07/12/20 24 07/12/2024 [UNIT Y] RACHANA Lopez cystic fibrosis carrier screen NEGATI VE normal Not Available [facility] [address] [facility], [place], [address], 07/12/2024 03:15:13 07/12/20 24 07/12/2024 [UNIT Y] RACHANA Lopez spinal muscular atrophy carrier screen NEGATI VE 3 SMN1 copies , SNP not presen t normal Not Available [facility] [address], [place], [address], 07/12/2024 03:15:13 07/12/20 24 07/12/2024 [UNIT Y] RACHANA Lopez for detailed report, see pdf See PDF normal Not Available [facility] [address], [place], [address], 07/12/2024 03:15:13 07/01/20 24 07/01/2024 CBC W/DIF F WBC 7.3 10'3/ uL 3.5-10 .5 Not Available [facility] (Lab) [address], [place], [address], 07/02/2024 10:48:58 07/01/20 24 07/01/2024 CBC W/DIF F RBC 4.20 10'6/ uL (based on docume nted legal sex) 3.80-5 .20 Not Available [facility] (Lab) [address], [place], [address], 07/02/2024 10:48:58 07/01/20 24 07/01/2024 CBC W/DIF F HGB 12.3 g/dL (based on docume nted legal sex) 11.6-1 5.4 Not Available [facility] (Lab) [address], [place], [address], 07/02/2024 10:48:58 07/01/20 24 07/01/2024 CBC W/DIF F HCT 37.6 % (based on docume nted legal sex) 34.0-4 5.0 Not Available [facility] (Lab) [address], [place], [address], 07/02/2024 10:48:58 07/01/20 24 07/01/2024 CBC W/DIF F MCV 89.5 fL 80.0-9 9.0 Not Available [facility] (Lab) [address], [place], [address], 07/02/2024 10:48:58 07/01/20 24 07/01/2024 CBC W/DIF F MCH 29.3 pg 27.0-3 4.0 Not Available [facility] (Lab) [address], [place], [address], 07/02/2024 10:48:58 07/01/20 24 07/01/2024 CBC W/DIF F MCHC 32.7 g/dL 32.0-3 5.5 Not Available [facility] (Lab) [address], [place], [address], 07/02/2024 10:48:58 07/01/20 24 07/01/2024 CBC W/DIF F RDW 12.3 % 11.0-1 5.0 Not Available [facility] (Lab) [address], [place], [address], 07/02/2024 10:48:58 07/01/20 24 07/01/2024 CBC W/DIF F plt 230 10'3/ uL 150-40 0 Not Available [facility] (Lab) [address], [place], [address], 07/02/2024 10:48:58 07/01/20 24 07/01/2024 CBC W/DIF F MPV 10.3 fL 8.8-12 .1 Not Available [facility] (Lab) [address], [place], [address], 07/02/2024 10:48:58 07/01/20 24 07/01/2024 CBC W/DIF F NRBC's 0.0 % 0.0 Not Available [facility] (Lab) [address], [place], [address], 07/02/2024 10:48:58 07/01/20 24 07/01/2024 CBC W/DIF F absolute NRBCs 0.0 10'3/ uL no refere nce range establ ished Not Available [facility] (Lab) [address] [facility], [place], [address], 07/02/2024 10:48:58 07/01/20 24 07/01/2024 CBC W/DIF F neutrophils 63.5 % 34.0-7 3.0 Not Available [facility] (Lab) [address] [facility], [place], [address], 07/02/2024 10:48:58 07/01/20 24 07/01/2024 CBC W/DIF F lymphocytes 27.9 % 15.0-5 0.0 Not Available [facility] (Lab) [address] [facility], [place], [address], 07/02/2024 10:48:58 07/01/20 24 07/01/2024 CBC W/DIF F monocytes 6.6 % 1.0-15 .0 Not Available [facility] (Lab) [address] [facility], [place], [address], 07/02/2024 10:48:58 07/01/20 24 07/01/2024 CBC W/DIF F eosinophils 1.4 % 0.0-8. 0 Not Available [facility] (Lab) [address] [facility], [place], [address], 07/02/2024 10:48:58 07/01/20 24 07/01/2024 CBC W/DIF F basophils 0.3 % 0.0-2. 0 Not Available [facility] (Lab) [address] [facility], [place], [address], 07/02/2024 10:48:58 07/01/20 24 07/01/2024 CBC W/DIF F immature granulocytes 0.3 % no define d refere nce range Not Available [facility] (Lab) [address] [facility], [place], [address], 07/02/2024 10:48:58 07/01/20 24 07/01/2024 CBC W/DIF F absolute neutrophils 4.7 10'3/ uL 1.5-8. 0 Not Available [facility] (Lab) [address] [facility], [place], [address], 07/02/2024 10:48:58 07/01/20 24 07/01/2024 CBC W/DIF F absolute lymphocytes 2.0 10'3/ uL 1.0-4. 0 Not Available [facility] (Lab) [address] [facility], [place], [address], 07/02/2024 10:48:58 07/01/20 24 07/01/2024 CBC W/DIF F absolute monocytes 0.5 10'3/ uL 0.2-1. 0 Not Available [facility] (Lab) [address] [facility], [place], [address], 07/02/2024 10:48:58 07/01/20 24 07/01/2024 CBC W/DIF F absolute eosinophils 0.1 10'3/ uL 0.0-0. 6 Not Available [facility] (Lab) [address] [place], [address], 07/02/2024 10:48:58 07/01/20 24 07/01/2024 CBC W/DIF F absolute basophils 0.0 10'3/ uL 0.0-0. 3 Not Available [facility] (Lab) [address] [facility], [place], [address], 07/02/2024 10:48:58 07/01/20 24 07/01/2024 CBC W/DIF F absolute immature granulocytes 0.0 10'3/ uL 0.00-0 .10 07/02 4:51 AM: P indic ates parti al olu ts on a panel have been relea sed. Addit ional resul ts will follo w. 07/02 4:51 AM: This resul t has been final verif ied. No addit ional or castelan ed resul ts are expec henrietta. Not Available [facility] (Lab) [address], [place], [address], 07/02/2024 10:48:58 07/01/20 24 07/01/2024 HIV 1/2 ANTIG EN/AN TIBOD Y, REFLE X CONFI RMATI ON HIV antigen/anti body Nonrea ctive nonrea ctive HIV-1 antig en and HIV-1 /HIV- 2 antib odies were not detec henrietta. No labor atory evide nce of HIV infec tion. Not Available [facility] (Lab) [address], [place], [address], 07/02/2024 10:48:59 07/01/20 24 07/01/2024 HEPAT ITIS B SURFA CE ANTIG EN hepatitis B surface antigen Non-re active non-re active This assay was perfo rmed using [employer] ratio n reage nts and test kits. Value s obtai joshua with other assay metho ds or kits canno t be used inter castelan eably . Not Available [facility] (Lab) [address], [place], [address], 07/02/2024 10:48:59 07/01/20 24 07/01/2024 HEPAT ITIS C ANTIB HEAVEN SCREE N, REFLE X TO CONFI RMATI ON hepatitis C antibody Non-re active non-re active Antib odies to HCV Not Detec henrietta, does not exclu de the possi bilit y of expos ure to HCV. Not Available [facility] (Lab) [address], [place], [address], 07/02/2024 10:49:00 07/01/20 24 07/01/2024 RUBEL LA IGG ANTIB HEAVEN, QUANT rubella antibodies, IgG Reacti ve reacti ve Not Available [facility] (Lab) [address], [place], [address], 07/02/2024 10:49:01 07/01/20 24 07/01/2024 RUBEL LA IGG ANTIB HEAVEN, QUANT rubella antibodies, IgG quant 14.6 IU/mL >=10 Non-r eacti ve (Non- Immun e) <10 IU/mL React nava (Immu ne) > or = 10 IU/mL Not Available [facility] (Lab) [address], [place], [address], 07/02/2024 10:49:01 07/01/20 24 07/01/2024 HEMOG LOBIN A1C hemoglobin A1C 4.9 % 0-5.6 The Ameri can Diabe heaven [employer] iatio n recom mends that a prima ry goal of thera py shoul d be a HBA1C of < 7% and that physi cians shoul d reeva luate the treat ment regim en in patie nts with HBA1C value s consi stent ly > 8%. <5.7% Jeanne l 5.7 - 6.4% Incre ased risk for diabe heaven >=6.5 % Diagn ostic of diabe heaven <7.0% Goal of thera py >8.0% Actio n sugge sted Not Available [facility] (Lab) [address], [place], [address], 07/02/2024 10:49:01 07/01/20 24 07/01/2024 TYPE/ RH/SC REEN ABO/Rh type O POS Not Available [facility] (Lab) [address], [place], [address], 07/02/2024 10:49:02 07/01/20 24 07/01/2024 TYPE/ RH/SC REEN antibody screen NEG Not Available [facility] (Lab) [address], [place], [address], 07/02/2024 10:49:02 07/01/20 24 07/01/2024 TYPE/ RH/SC REEN exp date 2023 23:59 Not Available [facility] (Lab) [address], [place], [address], 07/02/2024 10:49:02 07/01/20 24 07/01/2024 RPR SCREE N, REFLE X TITER /CONF IRMAT ION RPR screen Nonrea ctive nonrea ctive Not Available [facility] (Lab) [address] [facility], [place], [address], 07/02/2024 10:49:02 07/01/20 24 07/01/2024 CULTU RE: URINE result report SEE RESULT S BELOW Test: Cultu re: Urine Speci men Sourc e: Urine - Clean Catch Speci men Type: Urine Speci men Date: 07/01 1151 Resul t Date: 07/03 0635 Resul t Statu s: Final resul t Abnor mal: No Resul ting Lab: [facility] [address] [facility] [address] Tel: CULTU RE ----- ----- ----- --- No growt h in 1 day (dete ction level of 10,00 0 colon ies / ml.) Not Available [facility] (Lab) [address] [facility], [place], [address], 07/03/2024 07:39:05 06/03/20 24 06/03/2024 US, brian bejarano, follo w-up No observ ation record ed. [address] [facility], [place], [address], 06/04/2024 00:04:14 07/01/20 24 07/01/2024 US, brian bejarano, nucha l trans lucen cy No observ ation record ed. [email or web address] [place] [address], [place], [address], 07/01/2024 14:51:27 07/01/20 24 07/01/2024 US, brian bejarano, 1st trime ster No observ ation record ed. [email or web address] [place] [address], [place], [address], 07/01/2024 14:51:37 07/01/20 24 07/01/2024 US, obste tric, nucha l trans lucen cy No observ ation record ed. [email or web address] [address], [place], [address], 07/01/2024 17:58:22 08/28/19 25 08/28/2024 US, obste tric, 2nd or 3rd trime ster No observ ation record ed. [email or web address] [place] [address], [place], [address], 08/28/2024 17:58:09 08/28/19 25 08/28/2024 US, obste tric, 2nd or 3rd trime ster No observ ation record ed. [email or web address] [address], [place], [address], 09/02/2024 23:49:32 Result Notes None recorded. Problems Name Problem SNOMED Code Status Onset Date Resolution Date Notes Provider Name and Address Organization Details Recorded Time 68325609 Active 2023 [facility] 4 12:25:12 Past history of gestationa l hypertensi on 310634752 Active Jose EDWARDS MD [address], [place], [address], [facility] 4 12:53:07 Past history of section 515573540 Active leaning towards VERONICA EDWARDS MD [address], [place], [address], [facility] 5 16:51:36 Past history of section 576833840 Active leaning towards VERONICA EDWARDS MD [address], [place], [address], [facility] 5 16:51:37 Past history of gestationa l hypertensi on 300852360 Active Jose EDWARDS MD [address], [place], [address], [facility] 4 12:53:30 Problem Notes None recorded. Procedures Surgical History Date Name Laterality Status Provider Name and Address Organization Details Recorded Time 3 Date of Last Pap Smear completed [facility] 06/03/2024 16:43:39 3 Caesarean Section completed Sharron [facility] 06/03/2024 15:51:55 Imaging Results Imaging Date Name Status LastModified by Organization Details LastModified Time 06/03/2024 US, obstetric, follow-up completed [email or web address] [address], [place], [address], 06/04/2024 00:04:14 07/01/2024 US, obstetric, nuchal translucency completed [email or web address] [place] [address], [place], [address], 07/01/2024 14:51:27 07/01/2024 US, obstetric, 1st trimester completed [email or web address] [place] [address], [place], [address], 07/01/2024 14:51:37 07/01/2024 US, obstetric, nuchal translucency completed [email or web address] [address], [place], [address], 07/01/2024 17:58:22 08/28/2024 US, obstetric, 2nd or 3rd trimester completed [email or web address] [place] [address], [place], [address], 08/28/2024 17:58:09 08/28/2024 US, obstetric, 2nd or 3rd trimester completed [email or web address] [address], [place], [address], 09/02/2024 23:49:32 Procedure Notes None recorded. Medical Equipment None Reported. Allergies No known drug allergies Medications Name Sig Start Date Stop Date Status Note LastModified by Organization Details LastModified Time fluconazole 150 mg tablet TAKE 1 TABLET BY MOUTH NOW. REPEAT IN 7 DAYS IF SYMPTOMS PERSIST 06/03 completed Not Available Not Available Not Available metronidazo le 500 mg tablet active Not Available Not Available Not Available sulfamethox azole 800 mg-trimetho prim 160 mg tablet TAKE 1 TABLET BY MOUTH TWICE DAILY FOR 10 DAYS 06/03 completed Not Available Not Available Not Available cephalexin 500 mg capsule 09/02 completed Not Available Not Available Not Available Vitals Date Recorded Body height Body mass index (BMI) Body weight Systolic blood pressure Diastolic blood pressure Provider Name and Address Organization Details Last Updated DateTime 07/01/2024 165.1 cm 26.8 kg/m2 26805.37 g 109 mm[Hg] 73 mm[Hg] [facility] 4 12:20:28 Date Recorded Body height Body mass index (BMI) Body weight Systolic blood pressure Diastolic blood pressure Provider Name and Address Organization Details Last Updated DateTime 08/01/2024 165.1 cm 28.1 kg/m2 91914.11 053 g 108 mm[Hg] 65 mm[Hg] [facility] 4 16:32:42 Date Recorded Body height Body mass index (BMI) Body weight Systolic blood pressure Diastolic blood pressure Provider Name and Address Organization Details Last Updated DateTime 09/02/2024 165.1 cm 29.1 kg/m2 18321.66 475 g 128 mm[Hg] 74 mm[Hg] [facility] 5 16:20:33 Social History Question Answer Notes LastModified by Organizat ion Details LastModified Time Do You Have An Advance Directive? No [email or web address] Information n ot available 06/03/2024 What Is Your Level Of Alcohol Consumption? Occasional [email or web address] Information not available 06/03/2024 How Many Years Have You Consumed Alcohol? 10 [email or web address] Information not available 06/03/2024 Are You Blind Or Do You Have Difficulty Seeing? No Information n ot available 06/03/2024 What Is Your Level Of Caffeine Consumption? Occasional [email or web address] Information not available 06/03/2024 How Much Tobacco Do You Chew? None [email or web address] Information not available 06/03/2024 In The 14 Days Before Symptom Onset, Have You Had Close Contact With A Laboratory-confirm ed COVID-19 While That Case Was Ill? No [email or web address] Information n ot available 06/03/2024 In The 14 Days Before Symptom Onset, Have You Had Close Contact With A Person Who Is Under Investigation For COVID-19 While That Person Was Ill? No [email or web address] Information not available 06/03/2024 Have You Been To An Area Known To Be High Risk For COVID-19? No [email or web address] Information not available 06/03/2024 Are You Deaf Or Do You Have Serious Difficulty Hearing? No [email or web address] Information not available 06/03/2024 What Type Of Diet Are You Following? REGULAR [email or web address] Information n ot available 06/03/2024 What Is The Highest Grade Or Level Of School You Have Completed Or The Highest Degree You Have Received? 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 No Information not available 06/03/2024 Do You Use Protection During Sex? No Information not available 06/03/2024 Do You Use Your Seat Belt Or Car Seat Routinely? Yes Information not available 06/03/2024 Do You Have Smoke And Carbon Monoxide Detectors In Your Home? Yes [email or web address] Information not available 06/03/2024 How Much Tobacco Do You Smoke? No Information not available 06/03/2024 Do You Feel Stressed (tense, Restless, Nervous, Or Anxious, Or Unable To Sleep At Night)? [id number] Information not available 06/03/2024 Do You Use Any Illicit Or Recreational Drugs? Yes [email or web address] Information not available 06/03/2024 Do You Use Sunscreen Routinely? Yes [email or web address] Information not available 06/03/2024 Have You Used IV Drugs? No [email or web address] Information not available 06/03/2024 Sex: Unknown Functional Status Question Answer Note LastModified by Organizat ion Details LastModified Time Are you able to walk? YESWOREST [email or web address] Information not available 06/03/2024 What is your exercise level? Occasional [email or web address] Information not available 06/03/2024 Mental Status None recorded. Family History Relationship Description Onset Age of this Age Resolved Age Notes LastModified by Organization Details LastModified Time Unspecified Relation Family history unknown Not available 2023 15:52:16 Medical History Condition Response No Past Medical History Y Gynecological History Statement/Question Response Date of LMP 04/03/2024 On BCP's at Conception? N N Was last menstrual period normal N STIs/STDs N HPV Vaccine Y Duration of Flow (days) 4 Current Control Method Age at First Child 26 Frequency of Cycle (Q days) 5 Sexually Active? Y Unknown Age of first menstrual cycle 11 Date of Last Pap Smear 10/04/2022 Sexual Problems? N Desired Control Method None LMP Definite N Obstetrics History GPAL:G 3 P 1 0 1 1 Type Value Full Term 1 Induced 1 Living 1 Total 3 Past Encounters Encounter ID Performer Location Encounter Start Date Encounter Closed Date Diagnosis/Indication Diagnosis SNOMED-CT Code Diagnosis ICD10 Code Diagnosis Note [id number] Jo-Ann Chester [place] [address] [address] 06/03/2024 15:47:20 06/03/2024 16:36:13 [id number] KYA EDWARDS MD [place] [address] [address] 06/03/2024 15:48:11 06/04/2024 12:49:32 test positive 775509437 Z32.01 1. Exam today within normal limits.2. Ultrasound today confirms GA and viability. EDC . GC/Clamydi a testing done: will f/u as indicated. 4. ACOG guidelines and plan of care for reviewed with patient. All questions answered.5 . Return to office at 12 weeks for new OB visit6. Will need new OB labs at next visit.7. Genetic screening: desires. Past pregn saumya history of section 430180473 Z98.890 - desires TOLAC- risks and benefits of TOLAC vs RCS discussed including risk of uterine rupture Past pregn saumya history of gestational hypertension 306242966 Z87.59 - will recommend bASA at 12 weeks [id number] [facility] [address],[place] [address] 07/01/2024 11:13:22 07/01/2024 12:44:44 screening 575096836 Z36.82 Z3A.12 [id number] KYA EDWARDS MD [place] [address],[place] [address] 07/01/2024 11:13:39 07/01/2024 13:00:04 Past history of section 750117206 Z98.890 - desires TOLAC- risks and benefits of TOLAC vs RCS discussed including risk of uterine rupture Past pregn saumya history of gestational hypertension 013393797 Z87.59 - recommende d bASA at 12 weeks Gestation period, 12 weeks 63932039 Z3A.12 [id number] KYA EDWARDS MD [place] [address],[place] [address] 08/01/2024 16:21:35 08/04/2024 11:23:02 Past history of gestational hypertension 976066753 Z87.59 - recommende d bASA at 12 weeks Uterine sc ar from previous surgery affecting 24706771 O34.29 Gestation period, 17 weeks 79664251 Z3A.17 [id number] [facility] [address],[place] [address] 08/28/2024 16:53:15 08/28/2024 17:57:00 screening for malformation 047017947 Z36.3 Z3A.21 [id number] KYA EDWARDS MD [place] [address],[place] [address] 09/02/2024 16:15:07 09/02/2024 17:00:41 Uterine scar from previous surgery affecting 64453732 O34.29 - desires RCS Gestation period, 21 weeks 44735571 Z3A.21 Health Concerns Section Related Observation LastModified by Organization Detai ls LastModified Time None Recorded Concern Status LastModified by Organization Details LastModified Time None Recorded Advance Directives Directive N: Payers Encounter Date Sequence Insurance Name Policy Number Policy Hughes Covered Member ID Hughes Member ID Guarantor Name 07/01/2024 1 [facility] [id number] Megan Buerkett [id number] Megan Buerkett 07/01/2024 1 [facility] [id number] Megan Buerkett [phone] Megan Buerkett 08/01/2024 1 [facility] [id number] Megan Buerkett [id number] Megan Buerkett 08/28/2024 1 [place] [id number] Megan Buerkett [id number] Megan Buerkett 09/02/2024 1 [place] [id number] Megan Buerkett [id number] Megan Buerkett OBGyn Episode Ob Episode Information Episode Created Date Number of Fetuses Patient Bloodtype Patient rh Status Prepregnancy Weight lbs Domestic Partner Domestic Partner Phone Father Name 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 Status 06/03/20 24 1 CLOSED Fetus Data First Name Last Name Admitted to NICU Weight (g) Sex Living Outcome Pediatric Complications Fetus ID Race Codes Race Delivery Type M Full Term [id number] Primary Bigg Calculation Initial Bigg Date Initial Exam Date Initial Exam Provider Initial Ultrasound Date Last Menstrual Period Date Ultra Sound Weeks Gestation 0 Eighteen To Twenty Week Bigg Update Ultra Sound Date Fundal Height At Umbil Quickening Date Ultra Sound Latest Weeks Gestation Final Bigg Confirmed By Final Bigg Confirmed Date Final Bigg Date Ultra Sound Latest Days Gestation 0 0 Menstrual History Last Menstrual Date Menses Monthly On Bcp Conception Prior Menses Frequency Hcg Plus Date Menarche Onset Age Delivery Information Delivery Date Delivery Type Labor Anesthesia Weeks Gestation Incision Type Labor Labor Length Hrs Delivered By Post Complications Tubal Sterilization Discharge Date Comments Discharge Information Feeding Method Contraceptive Method Maternal HG B and HCT Levels Ob Episode Information Episode Created Date Number of Fetuses Patient Bloodtype Patient rh Status Prepregnancy Weight lbs Domestic Partner Domestic Partner Phone Father Name 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 Status 07/01/20 24 1 161 OPEN Fetus Data First Name Last Name Admitted to NICU Weight (g) Sex Living Outcome Pediatric Complications Fetus ID Race Codes Race Delivery Type [id number] Problems Problem Notes Problem Name Start Date End Date Resolution Snomed Code Not e Past history of gestational hypertension [id number] Past history of section [id number] leaning towards RCS Bigg Calculation Initial Bigg Date Initial Exam Date Initial Exam Provider Initial Ultrasound Date Last Menstrual Period Date Ultra Sound Weeks Gestation 01/08/2025 07/01/2024 06/03/2024 04/03/2024 9 Eighteen To Twenty Week Bigg Update Ultra Sound Date Fundal Height At Umbil Quickening Date Ultra Sound Latest Weeks Gestation Final Bigg Confirmed By Final Bigg Confirmed Date Final Bigg Date Ultra Sound Latest Days Gestation 0 [email or web address] 07/01/2024 01/09/20 25 0 Pre- Flowsheet Flowsheet Date 07/01/2024 Cain Score Blood Edema Fundus Height Fundus Units Glucose Ketones Leukocytes Nitrite Labor Signs Protein Cervic Dilation Cervic Effacement Cervic Station Type Weight in lbs Pre/Post Dialysis Refused Weight 161.513730492381 BP Diastolic BP Location Tested BP Systolic BP Type 73 L arm 109 sitting Fetus Heart Rate Present A Present Fetus Movement Comments Patient presents to [facility] care. Mild nausea, improved with unisom/b6. No cramping or bleeding. Discussed bASA ppx due to hx of gHTN. NT/NB wnl, desires NIPT, will draw today with new OB labs. Hx of PLTCS in G1 , desires TOLAC. Risks previously discussed. RTC 4 weeks Flowsheet Date 08/01/2024 Cain Score Blood Edema Fundus Height Fundus Units Glucose Ketones Leukocytes Nitrite Labor Signs Protein Cervic Dilation Cervic Effacement Cervic Station neg none Type Weight in lbs Pre/Post Dialysis Refused 169.407608994181 BP Diastolic BP Location Tested BP Systolic BP Type 65 L arm 108 sitting Fetus Heart Rate Present A 145 Fetus Movement Comments Patient c/o of some slight n ausea. No bleeding or cramping. LR female NIPT. Other OB labs wnl. Discussed anatomy US. Unsure TOLAC vs RCS, will continue to discuss. RTC 4 weeks. Flowsheet Date 08/28/2024 Cain Score Blood Edema Fundus Height Fundus Units Glucose Ketones Leukocytes Nitrite Labor Signs Protein Cervic Dilation Cervic Effacement Cervic Station Type Weight in lbs Pre/Post Dialysis Refused BP Diastolic BP Location Tested BP Systolic BP Type Fetus Heart Rate Present Fetus Movement Comments Flowsheet Date 09/02/2024 Cain Score Blood Edema Fundus Height Fundus Units Glucose Ketones Leukocytes Nitrite Labor Signs Protein Cervic Dilation Cervic Effacement Cervic Station neg none Type Weight in lbs Pre/Post Dialysis Refused 175.297065056894 BP Diastolic BP Location Tested BP Systolic BP Type 74 L arm 128 sitting Fetus Heart Rate Present A 150 Fetus Movement A Yes Comments Doing well, no cramping or b leeding. Good movement. Anatomy complete and normal, EFW 65%. Will repeat at 32 weeks for hx of c section. Leaning towards RCS however still unsure. RTC 4 weeks. Menstrual History Last Menstrual Date Menses Monthly On Bcp Conception Prior Menses Frequency Hcg Plus Date Menarche Onset Age 0804/03/2024 true Delivery Information Delivery Date Delivery Type Labor Anesthesia Weeks Gestation Incision Type Labor Labor Length Hrs Delivered By Post Complications Tubal Sterilization Discharge Date Comments Discharge Information Feeding Method Contraceptive Method Maternal HG B and HCT Levels Ob Episode Information Episode Created Date Number of Fetuses Patient Bloodtype Patient rh Status Prepregnancy Weight lbs Domestic Partner Domestic Partner Phone Father Name 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 Status 06/03/20 24 1 CLOSED Fetus Data First Name Last Name Admitted to NICU Weight (g) Sex Living Outcome Pediatric Complications Fetus ID Race Codes Race Delivery Type , Induced [id number] Bigg Calculation Initial Bigg Date Initial Exam Date Initial Exam Provider Initial Ultrasound Date Last Menstrual Period Date Ultra Sound Weeks Gestation 0 Eighteen To Twenty Week Bigg Update Ultra Sound Date Fundal Height At Umbil Quickening Date Ultra Sound Latest Weeks Gestation Final Bigg Confirmed By Final Bigg Confirmed Date Final Bigg Date Ultra Sound Latest Days Gestation 0 0 Menstrual History Last Menstrual Date Menses Monthly On Bcp Conception Prior Menses Frequency Hcg Plus Date Menarche Onset Age Delivery Information Delivery Date Delivery Type Labor Anesthesia Weeks Gestation Incision Type Labor Labor Length Hrs Delivered By Post Complications Tubal Sterilization Discharge Date Comments 9 Discharge Information Feeding Method Contraceptive Method Maternal HG B and HCT Levels
--- OUTSIDE RECORDS SUMMARY | 2024-09-15 16:34 | XMS_ITS | Referral Summary ---
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): Health Maintenance: -PCV20: N/A -Tdap vaccine: 2022 [...] PPD TEST 07/26/2021 Tdap 09/18/2022,03/11/2008 Varicella 12/10/1998 Social History Tobacco Use Types Packs/Day Years [...] CDT Gender Identity Female 09/18/2023 8:46 PM MOBILE CRANE OPERATOR Sexual Orientation Straight 09/18/2023 8: 46 PM MOBILE CRANE OPERATOR Last Filed Vital Signs Vital Sign Reading [...] 02/28/2024 1:34 PM CDT Plan of Treatment Not on file Procedures Procedure Name Priority Date/Time Associated Diagnosis Comments HM PAP SMEAR Routine 02/02/2022 from Last 3 Months or Most Recently Relevant to Health Maintenance Results * HM PAP SMEAR (02/02/2022) Historical Provider HEALTH MAINTENANCE Final Result from Last 3 Months or Most Recently Relevant to Health Maintenance Insurance [facility] Care Teams Blacking Wheel Tender Relationship Specialty Start Date End Date Perla Muñoz PA [address] [place] [address] PCP - General Family Medicine 10/02/23
--- OUTSIDE RECORDS SUMMARY | 2024-09-15 16:34 | XMS_ITS | Clinical Summary ---
Author Organization [facility] [address] Address [address] [place] [address] Care Team Providers Care Sql Consultant Name Role Phone Talita Gilliam MD Primary Care Provider [phone] Allergies No known active allergies Medications albuterol sulfate 90 mcg/actuation aero powdr breath act w/sensorIndicatio ns:Mild intermittent asthma without complication 1 time daily as needed. Active cyanocobalamin 1,000 mcg Tablet Take 1,000 mcg by mouth daily. Active Active Problems Problem Noted Date Diagnosed Date Nausea and vomiting during p regnancy prior to 22 weeks gestation 01/26/2022 History of COVID-19 10/15/2020 Dehydration, mild Immunizations Immunization Administration Dates Next Due INFLUENZA VACCINE QUADRIVALENT 6 MOS UP PF IM Family History Medical History Relation Name Comments Thyroid Disease Father Shannon Granda Hyperthyroi dism Cancer Maternal Grandfather Jamari Leal Lung & Throat Cancer Anesthesia Problems Maternal Grandmother Dimplelayton Horta nger Heart Disease Maternal Grandmother Dimple Mel C ardiomyopathy Hypertension Mother Daisha Granda Stroke Paternal Grandfather Jamari Leal Depression Sister Enid Granda Anxiety/Depre ssion Relation Name Status Comments Brother 1 Alive Brother 2 Alive Father Shannon Granda Alive Maternal Grandfather Jamari Leal Maternal Grandmother Dimple Mel Mother Daisha Granda Alive Paternal Grandfather Jamari Davidkandi Sister [place] Granda Alive Social History Tobacco Use Types Packs/Day Years Used Date Smoking Tobacco: Never Smokeless Tobacco: Never Tobacco Cessation:Counseling Given: Not Answered Alcohol Use Standard Drinks/Week Comments Yes 0 (1 standard drink = 0.6 oz pur e alcohol) Comments No Sex and Gender Information Value Date Recorded Sex Assigned at Not on file 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 Gender Identity Not on file Sexual Orientation Not on file Last Filed Vital Signs Vital Sign Reading Time Taken Comments Blood Pressure 120/82 05/24/2022 10:44 AM CDT Pulse 96 05/05/2021 11:30 AM CDT Temperature 36.7 C (98.1 F) 01/26/2022 6:15 PM CDT Respiratory Rate 18 01/26/2022 6:15 PM CDT Oxygen Saturation 98% 05/05/2021 11: 30 AM CDT Inhaled Oxygen Concentration - - Weight 73.8 kg (162 lb 12.8 oz) 022 10:44 AM CDT Height 165.1 cm (5' 5 ) 05/24/2022 10:4 4 AM CDT Body Mass Index 27.09 05/24/2022 10:44 AM CDT Plan of Treatment Health Maintenance Due Date Last Done Comments DTAP/TDAP/TD VACCINES (1 - Tdap) 2012 HEPATITIS B VACCINES (1 of 3 - 19+ 3-dose series) 2012 Preventative Visit-Managed Medicaid 10/16/2021 10/15/2020 INFLUENZA VACCINE (#1) 2024 04/26/2022 CERVICAL CANCER SCREENING 02/02/2025 02/02/2022 HPV VACCINES Aged Out No longer eligi ble based on patient's age to complete this topic PNEUMOCOCCAL VACCINE 0-64 YEARS Aged Out No longer eligible based on patient's age to complete this topic Procedures Procedure Name Priority Date/Time Associated Diagnosis Comments CERV/VAG CYTO AGE BASED SCREEN PAP W CT/NG Routine 02/02/2022 4:28 PM CDT Positive test Pap smear for cervical cancer screening Screening for STDs (sexually transmitted diseases) from Last 3 Months or Most Recently Relevant to Health Maintenance Results * CERV/VAG CYTO AGE BASED SCREEN PAP W CT/NG (02/02/2022 4:28 PM CDT) COMMENT (PAP): [facility] Comment: This order for age-based cervical cancer and STI screening follows ACOG guidelines(PB 168, 140, EEA821). See individual assays for performing site location. CLINICAL INFORMATION [facility] Comment:Information not prov ided LAST MENSTRUAL PERIOD [facility] Comment:INFORMATION NOT PROV IDED PREV PAP: [facility] Comment:INFORMATION NOT PROV IDED PREV BX: [facility] Comment:INFORMATION NOT PROV IDED SOURCE [facility] Comment:Endocervix ADEQUACY: [facility] Comment: Satisfactory for evaluation. Endocervical/transformation zone component present. Age and/or menstrual status not provided PAP INTERP [facility] Comment:Negative for intraep ithelial lesion or malignancy. COMMENT (PAP TEST) Q uest [facility] Comment: This Pap test has been evaluated with computer assisted technology. SALES ATTENDANT: est [facility] Comment: LMT, CT(ASCP) CT screening location: [place] [address] [place] [address] EXPLANATORY NOTE Que [facility] Comment: EXPLANATORY NOTE: The Pap is a screening test for cervical cancer. It is not a diagnostic test and is subject to false negative and false positive results. It is most reliable when a satisfactory sample, regularly obtained, is submitted with relevant clinical findings and history, and when the Pap result is evaluated along with historic and current clinical information. C TRAC RNA NOT DETECTED NOT DETECTED [facility] N.GONORRHOEAE RNA, TMA NOT DETECTED NOT DETECTED [facility] COMMENT INFECTIOUS DISEASE [facility] Comment: The analytical performance characteristics of this assay, when used to test SurePath(TM) specimens have been determined by [facility]. The modifications have not been cleared or approved by the FDA. This assay has been validated pursuant to the CLIA regulations and is used for clinical purposes. For additional information, please refer to https://education.[employer]/faq/JJX435 (This link is being provided for information/ educational purposes only.) Test Performed at: [facility] [address] [place] [address] Sreedhar Luna D.O., MPH SL Genital SWAB OF ENDOCERVIX / Unknown 02/02/2022 4:28 PM CDT 02/03/2022 3:12 AM CDT Idalia Caruso MD PATHOLOGY/CYTOLOGY ORD ERABLES Final Result [facility] [phone] [facility] [address] [place] [address] from Last 3 Months or Most Recently Relevant to Health Maintenance Insurance [facility] MEDICAID Advance Directives For more information, please contact: [phone] * Full Code (Latest Code Status on File) Date Activated Date Inactivated Comments 01/26/2022 4:59 PM 01/27/2022 1:52 AM Care Teams Sql Consultant Relationship Specialty Start Date End Date Talita Gilliam MD [address] [place] [address] PCP - General Family Practice 09/29/20
--- OUTSIDE RECORDS SUMMARY | 2024-09-15 16:34 | XMS_ITS | Patient Health Summary ---
Author Organization [facility] Address [address] [place] [address] Care Team Providers Care Financial Planning Advisor Name Role Phone Unavailable Primary Care Provider Unavailabl e Note from [facility],non-owned Affiliates and Associated Physician Practices is amultiple site organization consisting of ambulatory clinics and hospital sitesin [place], [place], [place] and [place]. This disclosure is being madepursuant to the Care Everywhere program and may not contain all information available regarding this patient. Last updated 18.[facility] Allergies No known active allergies Medications Be [...]
--- NOTE | 2024-09-15 21:02 | PC.NURSE ---
Pt discharged with instructions to keep next scheduled appointment and when to return to the unit, pt verbalizes understanding.
--- NOTE | 2024-09-16 08:54 | PM.OBTRLD ---
OB - Triage/Final Diagnosis Visit Information Comments/Additional reasons for admission: I have assessed the risk for this patient, Megan Granda, and determined that she would benefit from observation care. Evaluation Vital signs: Vital Signs - 24 hr 09/15/24 17:01 09/15/24 17:16 09/15/24 17:31 Pulse Rate 75 78 79 Blood Pressure 112/70 111/71 110/68 Pulse Oximetry 09/15/24 17:46 09/15/24 18:01 09/15/24 18:16 Pulse Rate 85 77 86 Blood Pressure 114/72 108/71 104/78 Pulse Oximetry 09/15/24 18:36 09/15/24 18:41 09/15/24 18:45 Pulse Rate Blood Pressure Pulse Oximetry 100 100 100 09/15/24 18:50 09/15/24 18:55 09/15/24 19:00 Pulse Rate Blood Pressure Pulse Oximetry 100 99 99 09/15/24 19:03 09/15/24 19:08 09/15/24 19:13 Pulse Rate Blood Pressure Pulse Oximetry 99 99 100 09/15/24 19:18 09/15/24 19:22 09/15/24 19:24 Pulse Rate Blood Pressure Pulse Oximetry 99 99 98 09/15/24 19:29 09/15/24 19:37 09/15/24 19:42 Pulse Rate 79 Blood Pressure 118/68 Pulse Oximetry 99 100 99 09/15/24 19:47 09/15/24 19:52 09/15/24 19:57 Pulse Rate Blood Pressure Pulse Oximetry 98 98 99 09/15/24 20:01 09/15/24 20:02 09/15/24 20:05 Pulse Rate 82 Blood Pressure 113/61 Pulse Oximetry 98 99 09/15/24 20:10 09/15/24 20:11 09/15/24 20:12 Pulse Rate Blood Pressure Pulse Oximetry 97 99 98 09/15/24 20:17 09/15/24 20:22 09/15/24 20:27 Pulse Rate Blood Pressure Pulse Oximetry 99 99 98 09/15/24 20:31 09/15/24 20:32 09/15/24 20:37 Pulse Rate 90 Blood Pressure 119/79 Pulse Oximetry 99 100 09/15/24 20:42 09/15/24 20:47 09/15/24 20:52 Pulse Rate Blood Pressure Pulse Oximetry 98 98 98 09/15/24 20:57 09/15/24 20:58 Pulse Rate Blood Pressure Pulse Oximetry 98 99 Final Diagnosis (1) Fall against object: Code(s): W18.00XA - Striking against unspecified object with subsequent fall, initial encounter Status: Acute
== END 2024-09-15 21:02 | disposition home or self-care (01) ==
PROVIDERS: Admitting Provider Obstetrics & Gynecology; Visit Provider Obstetrics & Gynecology
DX: O26.892 Other specified pregnancy related conditions, second trimester (principal); W18.00XA Striking against unspecified object with subsequent fall, initial encounter; Z3A.23 23 weeks gestation of pregnancy
CPT/HCPCS: G0378; G0379

== ENCOUNTER 2024-11-19 09:38 | Outpatient (CLI) | payer BC, SELFPAY ==
--- OUTSIDE RECORDS SUMMARY | 2024-11-19 10:30 | XMS_ITS | Referral Summary ---
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): Health Maintenance: -PCV20: N/A -Tdap vaccine: 2022 [...] of COVID-19 10/15/2020 12/21/2022 10/01/19 24 Immunizations Immunization Administration Dates Next Due DTP 02/26/1995,07/06/1994,02/24/1994 DTP [...] CDT Gender Identity Female 09/18/2023 8:46 PM FAMILY SERVICES WORKER Sexual Orientation Straight 09/18/2023 8: 46 PM FAMILY SERVICES WORKER Last Filed Vital Signs Vital Sign Reading [...] Most Recently Relevant to Health Maintenance Insurance [facility] Care Teams Jacquard Loom Card Changer Relationship Specialty Start Date End Date Perla Muñoz PA [address] [place] [address] PCP - General Family Medicine 10/02/23
--- OUTSIDE RECORDS SUMMARY | 2024-11-19 10:30 | XMS_ITS | Data Portability ---
Author Organization [facility] [place] Address [address] [place] [address] [place] [address] Care Team Providers Care Veneer Clipper Name Role Phone OSCAR STEVEN Primary Care Provider Assessment No assessment recorded. Plan of Treatment Reminders Order Date Submit Date Provider Last Modified By Organization Details Last Modified Time Details Appointments None recorded. Lab None recorded. Referral None recorded. Procedures None recorded. Surgeries None recorded. Imaging US, obstetric, 2nd or 3rd trimester [address], [address], [place], [address], 5 21:13:52 US, obstetric, nuchal translucenc y [address], [address], [place], [address], 18:14:52 US, obstetric, 1st trimester [address] [facility] [address], [place], [address], 18:14:52 Medication Orders None recorded. Patient TargetsNo targets recorded. Patient InstructionsNo instructions recorded. Reason for Referral None Reported. Results Created Date Observation Date Name Description Value Unit Range Abnormal Flag Note LastModifiedBy Organization Detail LastModifiedTime 07/07/20 24 07/07/2024 [UNIT Y] ANEUP LOIDY NIPT fraction 12.6% normal Not Available [facility] [address] [facility], [place], [address], 07/07/2024 17:17:14 07/07/20 24 07/07/2024 [UNIT Y] ANEUP LOIDY NIPT Rh(D) nipt RhD DETECT ED normal Not Available [facility] [address] [facility], [place], [address], 07/07/2024 17:17:14 07/07/20 24 07/07/2024 [UNIT Y] ANEUP LOIDY NIPT 22Q11.2 microdeletio n LOW RISK <1 in 10,000 normal Not Available [facility] [address] [facility], [place], [address], 07/07/2024 17:17:14 07/07/20 24 07/07/2024 [UNIT Y] ANEUP LOIDY NIPT sex chromosome aneuploidy NOT DETECT ED normal Not Available [facility] [address] [facility], [place], [address], 07/07/2024 17:17:14 07/07/20 24 07/07/2024 [UNIT Y] ANEUP LOIDY NIPT monosomy X LOW RISK <1 in 10,000 normal Not Available [facility] [address] [facility], [place], [address], 07/07/2024 17:17:14 07/07/20 24 07/07/2024 [UNIT Y] ANEUP LOIDY NIPT trisomy 13 LOW RISK <1 in 10,000 normal Not Available [facility] [address] [facility], [place], [address], 07/07/2024 17:17:14 07/07/20 24 07/07/2024 [UNIT Y] ANEUP LOIDY NIPT trisomy 18 LOW RISK <1 in 10,000 normal Not Available [facility] [address] [facility], [place], [address], 07/07/2024 17:17:14 07/07/20 24 07/07/2024 [UNIT Y] ANEUP LOIDY NIPT trisomy 21 LOW RISK <1 in 10,000 normal Not Available [facility] [address], [place], [address], 07/07/2024 17:17:14 07/07/20 24 07/07/2024 [UNIT Y] ANEUP LOIDY NIPT sex FEMALE normal Not Available [facility] [address], [place], [address], 07/07/2024 17:17:14 07/07/20 24 07/07/2024 [UNIT Y] ANEUP LOIDY NIPT gestation SINGLE TON normal Not Available [facility] [address], [place], [address], 07/07/2024 17:17:14 07/07/20 24 07/07/2024 [UNIT Y] ANEUP LOIDY NIPT for detailed report, see pdf See PDF normal Not Available [facility] [address] [facility], [place], [address], 07/07/2024 17:17:14 07/12/20 24 07/12/2024 [UNIT Y] RACHANA Lopez sickle cell disease/beta -thalassemia /hemoglobino pathies carrier screen NEGATI VE normal Not Available [facility] [address] [facility] , [place], [address], 07/12/2024 03:15:13 07/12/20 24 07/12/2024 [UNIT Y] RACHANA Lopez alpha-thalas semia carrier screen NEGATI VE normal Not Available [facility] [address] [facility] , [place], [address], 07/12/2024 03:15:13 07/12/20 24 07/12/2024 [UNIT Y] RACHANA Lopez cystic fibrosis carrier screen NEGATI VE normal Not Available [facility] [address] [facility] , [place], [address], 07/12/2024 03:15:13 07/12/20 24 07/12/2024 [UNIT Y] RACHANA Lopez spinal muscular atrophy carrier screen NEGATI VE 3 SMN1 copies , SNP not presen t normal Not Available [facility] [address], [place], [address], 07/12/2024 03:15:13 07/12/20 24 07/12/2024 [UNIT Y] RACHANA Lopze for detailed report, see pdf See PDF normal Not Available [facility] [address], [place], [address], 07/12/2024 03:15:13 07/01/20 24 07/01/2024 CBC W/DIF F WBC 7.3 10'3/ uL 3.5-10 .5 Not Available [facility] (Lab) [address], [place], [address], 07/02/2024 10:48:58 07/01/20 24 07/01/2024 CBC W/DIF F RBC 4.20 10'6/ uL (based on docume nted legal sex) 3.80-5 .20 Not Available [facility] (Lab) [address], [place], [address], 07/02/2024 10:48:58 07/01/20 24 07/01/2024 CBC W/DIF F HGB 12.3 g/dL (based on docume nted legal sex) 11.6-1 5.4 Not Available [facility] (Lab) [address], [place], [address], 07/02/2024 10:48:58 07/01/20 24 07/01/2024 CBC W/DIF F HCT 37.6 % (based on docume nted legal sex) 34.0-4 5.0 Not Available [facility] (Lab) [address], [place], [address], 07/02/2024 10:48:58 07/01/20 24 07/01/2024 CBC W/DIF F MCV 89.5 fL 80.0-9 9.0 Not Available [facility] (Lab) [address] [facility], [place], [address], 07/02/2024 10:48:58 07/01/20 24 07/01/2024 CBC W/DIF F MCH 29.3 pg 27.0-3 4.0 Not Available [facility] (Lab) [address] [facility], [place], [address], 07/02/2024 10:48:58 07/01/20 24 07/01/2024 CBC W/DIF F MCHC 32.7 g/dL 32.0-3 5.5 Not Available [facility] (Lab) [address], [place], [address], 07/02/2024 10:48:58 07/01/20 24 07/01/2024 CBC W/DIF F RDW 12.3 % 11.0-1 5.0 Not Available [facility] (Lab) [address] [facility], [place], [address], 07/02/2024 10:48:58 07/01/20 24 07/01/2024 CBC W/DIF F plt 230 10'3/ uL 150-40 0 Not Available [facility] (Lab) [address], [place], [address], 07/02/2024 10:48:58 07/01/20 24 07/01/2024 CBC W/DIF F MPV 10.3 fL 8.8-12 .1 Not Available [facility] (Lab) [address] [facility], [place], [address], 07/02/2024 10:48:58 07/01/20 24 07/01/2024 CBC W/DIF F NRBC's 0.0 % 0.0 Not Available [facility] (Lab) [address] [facility], [place], [address], 07/02/2024 10:48:58 07/01/20 24 07/01/2024 CBC W/DIF F absolute NRBCs 0.0 10'3/ uL no refere nce range establ ished Not Available [facility] (Lab) [address] [facility], [place], [address], 07/02/2024 10:48:58 07/01/20 24 07/01/2024 CBC W/DIF F neutrophils 63.5 % 34.0-7 3.0 Not Available [facility] (Lab) [address] [facility], [place], [address], 07/02/2024 10:48:58 07/01/20 24 07/01/2024 CBC W/DIF F lymphocytes 27.9 % 15.0-5 0.0 Not Available [facility] (Lab) [address] [facility], [place], [address], 07/02/2024 10:48:58 07/01/20 24 07/01/2024 CBC W/DIF F monocytes 6.6 % 1.0-15 .0 Not Available [facility] (Lab) [address] [facility], [place], [address], 07/02/2024 10:48:58 07/01/20 24 07/01/2024 CBC W/DIF F eosinophils 1.4 % 0.0-8. 0 Not Available [facility] (Lab) [address] [facility], [place], [address], 07/02/2024 10:48:58 07/01/20 24 07/01/2024 CBC W/DIF F basophils 0.3 % 0.0-2. 0 Not Available [facility] (Lab) [address] [facility], [place], [address], 07/02/2024 10:48:58 07/01/20 24 07/01/2024 CBC W/DIF F immature granulocytes 0.3 % no define d refere nce range Not Available [facility] (Lab) [address] [facility], [place], [address], 07/02/2024 10:48:58 07/01/20 24 07/01/2024 CBC W/DIF F absolute neutrophils 4.7 10'3/ uL 1.5-8. 0 Not Available [facility] (Lab) [address] [facility], [place], [address], 07/02/2024 10:48:58 07/01/20 24 07/01/2024 CBC W/DIF F absolute lymphocytes 2.0 10'3/ uL 1.0-4. 0 Not Available [facility] (Lab) [address] [facility], [place], [address], 07/02/2024 10:48:58 07/01/20 24 07/01/2024 CBC W/DIF F absolute monocytes 0.5 10'3/ uL 0.2-1. 0 Not Available [facility] (Lab) [address] [facility], [place], [address], 07/02/2024 10:48:58 07/01/20 24 07/01/2024 CBC W/DIF F absolute eosinophils 0.1 10'3/ uL 0.0-0. 6 Not Available [facility] (Lab) [address] [facility], [place], [address], 07/02/2024 10:48:58 07/01/20 24 07/01/2024 CBC W/DIF F absolute basophils 0.0 10'3/ uL 0.0-0. 3 Not Available [facility] (Lab) [address] [facility], [place], [address], 07/02/2024 10:48:58 07/01/20 24 07/01/2024 CBC W/DIF F absolute immature granulocytes 0.0 10'3/ uL 0.00-0 .10 07/02 4:51 AM: P indic ates parti al resul ts on a panel have been relea sed. Addit ional resul ts will follo w. 07/02 4:51 AM: This resul t has been final verif ied. No addit ional or castelan ed resul ts are expec henrietta. Not Available [facility] (Lab) [address], [place], [address], 07/02/2024 10:48:58 07/01/20 24 07/01/2024 HIV 1/2 ANTIG EN/AN TIBOD Y, REFLE X CONFI RMATI ON HIV antigen/anti body Nonrea ctive nonrea ctive HIV-1 antig en and HIV-1 /HIV- 2 antib odies were not detec henrietta. No labor atory evide nce of HIV infec tion. Not Available [facility] (Lab) [address], [place], [address], 07/02/2024 10:48:59 07/01/20 24 07/01/2024 HEPAT ITIS B SURFA CE ANTIG EN hepatitis B surface antigen Non-re active non-re active This assay was perfo rmed using [employer] ratio n reage nts and test kits. Value s obtai joshua with other assay metho ds or kits canno t be used inter castelan eably . Not Available [facility] (Lab) [address], [place], [address], 07/02/2024 10:48:59 07/01/20 24 07/01/2024 HEPAT ITIS C ANTIB HEAVEN SCREE N, REFLE X TO CONFI RMATI ON hepatitis C antibody Non-re active non-re active Antib odies to HCV Not Detec henrietta, does not exclu de the possi bilit y of expos ure to HCV. Not Available [facility] (Lab) [address], [place], [address], 07/02/2024 10:49:00 07/01/20 24 07/01/2024 RUBEL LA IGG ANTIB HEAVEN, QUANT rubella antibodies, IgG Reacti ve reacti ve Not Available [facility] (Lab) [address], [place], [address], 07/02/2024 10:49:01 07/01/20 24 07/01/2024 RUBEL LA IGG ANTIB HEAVEN, QUANT rubella antibodies, IgG quant 14.6 IU/mL >=10 Non-r eacti ve (Non- Immun e) <10 IU/mL React nava (Immu ne) > or = 10 IU/mL Not Available [facility] (Lab) [address], [place], [address], 07/02/2024 10:49:01 07/01/20 24 07/01/2024 HEMOG LOBIN [...] >8.0% Actio n sugge sted Not Available [facility] (Lab) [address], [place], [address], 07/02/2024 10:49:01 07/01/20 24 07/01/2024 TYPE/ RH/SC REEN ABO/Rh type O POS Not Available [facility] (Lab) [address], [place], [address], 07/02/2024 10:49:02 07/01/20 24 07/01/2024 TYPE/ RH/SC REEN antibody screen NEG Not Available [facility] (Lab) [address], [place], [address], 07/02/2024 10:49:02 07/01/20 24 07/01/2024 TYPE/ RH/SC REEN exp date 2023 23:59 Not Available [facility] (Lab) [address], [place], [address], 07/02/2024 10:49:02 07/01/20 24 07/01/2024 RPR SCREE N, REFLE X TITER /CONF IRMAT ION RPR screen Nonrea ctive nonrea ctive Not Available [facility] (Lab) [address] [facility], [place], [address], 07/02/2024 10:49:02 07/01/20 24 07/01/2024 CULTU RE: URINE result report SEE RESULT S BELOW Test: Cultu re: Urine Speci men Sourc e: Urine - Clean Catch Speci men Type: Urine Speci men Date: 07/01 1151 Resul t Date: 07/03 0635 Resul t Statu s: Final resul t Abnor mal: No Resul ting Lab: [facility] [address] [facility] [address] Tel: CULTU RE ----- ----- ----- --- No growt h in 1 day (dete ction level of 10,00 0 colon ies / ml.) Not Available [facility] (Lab) [address] [facility], [place], [address], 07/03/2024 07:39:05 06/03/20 24 06/03/2024 US, obste tric, follo w-up No observ ation record ed. [email or web address] [facility], [place], [address], 06/04/2024 00:04:14 07/01/20 24 07/01/2024 US, obste tric, nucha l trans lucen cy No observ ation record ed. [email or web address] [place] [address], [place], [address], 07/01/2024 14:51:27 07/01/20 24 07/01/2024 US, obste tric, 1st trime ster No observ ation record ed. [email or web address] [place] [address], [place], [address], 07/01/2024 14:51:37 07/01/20 24 07/01/2024 US, obste tric, nucha l trans lucen cy No observ ation record ed. [email or web address] [address], [place], [address], 07/01/2024 17:58:22 08/28/19 25 08/28/2024 US, obste tric, 2nd or 3rd trime ster No observ ation record ed. [email or web address] [place] [address], [place], [address], 08/28/2024 17:58:09 08/28/19 25 08/28/2024 US, obste tric, 2nd or 3rd trime ster No observ ation record ed. [email or web address] [address], [place], [address], 09/02/2024 23:49:32 Result Notes None recorded. Problems Name Problem SNOMED Code Status Onset Date Resolution Date Notes Provider Name and Address Organization Details Recorded Time 04299515 Active 2023 [facility] 12:25:12 Past history of gestationa l hypertensi on 359654708 Active Екатерина KYA EDWARDS MD [address], [place], [address], [facility] 4 12:53:07 Past history of section 936298980 Active leaning towards [facility] KYA EDWARDS MD [address], [place], [address], [facility] 5 16:51:36 Past history of section 854126932 Active leaning towards [facility] KYA EDWARDS MD [address], [place], [address], [facility] 5 16:51:37 Past history of gestationa l hypertensi on 543361203 Active Jose EDWARDS MD [address], [place], [address], [place] [facility] 4 12:53:30 Problem Notes None recorded. Procedures Surgical History Date Name Laterality Status Provider Name and Address Organization Details Recorded Time 3 Date of Last Pap Smear completed [facility] 06/03/2024 16:43:39 3 Caesarean Section completed Sharron [facility] 06/03/2024 15:51:55 Imaging Results Imaging Date Name Status LastModified by Organization Details LastModified Time 06/03/2024 US, obstetric, follow-up completed [email or web address], [place], [address], 06/04/2024 00:04:14 07/01/2024 US, obstetric, nuchal translucency completed [email or web address] [place] [address], [place], [address], 07/01/2024 14:51:27 07/01/2024 US, obstetric, 1st trimester completed [email or web address] [place] [address], [place], [address], 07/01/2024 14:51:37 07/01/2024 US, obstetric, nuchal translucency completed [email or web address] [address], [place], [address], 07/01/2024 17:58:22 08/28/2024 US, obstetric, 2nd or 3rd trimester completed [email or web address] [place] [address], [place], [address], 08/28/2024 17:58:09 08/28/2024 US, obstetric, 2nd or 3rd trimester completed [email or web address] [address], [place], [address], 09/02/2024 23:49:32 Procedure Notes None recorded. Medical [...] Updated DateTime 07/01/2024 165.1 cm 26.8 kg/m2 16569.37 g 109 mm[Hg] 73 mm[Hg] [facility] 4 12:20:28 Date Recorded Body height Body mass index (BMI) Body weight Systolic blood pressure Diastolic blood pressure Provider Name and Address Organization Details Last Updated DateTime 08/01/2024 165.1 cm 28.1 kg/m2 09205.11 053 g 108 mm[Hg] 65 mm[Hg] [facility] 4 16:32:42 Date Recorded Body height Body mass index (BMI) Body weight Systolic blood pressure Diastolic blood pressure Provider Name and Address Organization Details Last Updated DateTime 09/02/2024 165.1 cm 29.1 kg/m2 32767.66 475 g 128 mm[Hg] 74 mm[Hg] [facility] 5 16:20:33 Social History Question Answer Notes LastModified by Organizat ion Details LastModified Time Do You Have An Advance Directive? No [email or web address] Information n ot available 06/03/2024 What Is Your Level Of Alcohol Consumption? Occasional [email or web address] Information not available 06/03/2024 How Many Years Have You Consumed Alcohol? 10 [email or web address] Information not available 06/03/2024 Are You Blind Or Do You Have Difficulty Seeing? No [email or web address] Information n ot available 06/03/2024 What Is Your Level Of Caffeine Consumption? Occasional [email or web address] Information not available 06/03/2024 How Much Tobacco Do You Chew? None [email or web address] Information not available 06/03/2024 In The 14 Days Before Symptom Onset, Have You Had Close Contact With A Laboratory-confirm ed COVID-19 While That Case Was Ill? No [email or web address] Information n ot available 06/03/2024 In The 14 Days Before Symptom Onset, Have You Had Close Contact With A Person Who Is Under Investigation For COVID-19 While That Person Was Ill? No [email or web address] Information not available 06/03/2024 Have You Been To An Area Known To Be High Risk For COVID-19? No [email or web address] Information not available 06/03/2024 Are You Deaf Or Do You Have Serious Difficulty Hearing? No [email or web address] Information not available 06/03/2024 What Type Of Diet Are You Following? REGULAR [email or web address] Information n ot available 06/03/2024 What Is The Highest Grade Or Level Of School You Have Completed Or The Highest Degree You Have Received? 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 No [email or web address] Information not available 06/03/2024 Do You Use Protection During Sex? No [email or web address] Information not available 06/03/2024 Do You Use Your Seat Belt Or Car Seat Routinely? Yes [email or web address] Information not available 06/03/2024 Do You Have Smoke And Carbon Monoxide Detectors In Your Home? Yes [email or web address] Information not available 06/03/2024 How Much Tobacco Do You Smoke? No [email or web address] Information not available 06/03/2024 Do You Feel Stressed (tense, Restless, Nervous, Or Anxious, Or Unable To Sleep At Night)? [id number] Information not available 06/03/2024 Do You Use Any Illicit Or Recreational Drugs? Yes [email or web address] Information not available 06/03/2024 Do You Use Sunscreen Routinely? Yes [email or web address] Information not available 06/03/2024 Have You Used IV Drugs? No [email or web address] Information not available 06/03/2024 Sex: Unknown Functional Status Question Answer Note LastModified by Organizat ion Details LastModified Time Are you able to walk? [email or web address] Information not available 06/03/2024 What is your exercise level? Occasional [email or web address] Information not available 06/03/2024 Mental Status None recorded. Family History Relationship Description Onset Age of this Age Resolved Age Notes LastModified by Organization Details LastModified Time Unspecified Relation Family history unknown [email or web address] Not available 2023 15:52:16 Medical History Condition [...] SNOMED-CT Code Diagnosis ICD10 Code Diagnosis Note [id number] Jo-Ann Chester [place] [address] [address] 06/03/2024 15:47:20 06/03/2024 16:36:13 [id number] KYA EDWARDS MD [place] [address] [address] 06/03/2024 15:48:11 06/04/2024 12:49:32 test positive 480159358 Z32.01 1. Exam today within normal limits.2. [...] desires. Past pregn saumya history of section 329146277 Z98.890 - desires TOLAC- risks and benefits of TOLAC vs RCS discussed including risk of uterine rupture Past pregn saumya history of gestational hypertension 737135075 Z87.59 - will recommend bASA at [id number] [facility] [address],[place] [address] 07/01/2024 11:13:22 07/01/2024 12:44:44 screening 384787782 Z36.82 Z3A.12 [id number] KYA EDWARDS MD [place] [address],[place] [address] 07/01/2024 11:13:39 07/01/2024 13:00:04 Past history of section 627007649 Z98.890 - desires TOLAC- risks and benefits of TOLAC vs RCS discussed including risk of uterine rupture Past pregn saumya history of gestational hypertension 471746193 Z87.59 - recommende d bASA at 12 weeks Gestation period, 12 weeks 92555536 Z3A.12 [id number] KYA EDWARDS MD [place] [address],[place] [address] 08/01/2024 16:21:35 08/04/2024 11:23:02 Past history of gestational hypertension 270878835 Z87.59 - recommende d bASA at 12 weeks Uterine sc ar from previous surgery affecting 78418929 O34.29 Gestation period, 17 weeks 28865691 Z3A.[id number] [facility] [address],[place] [address] 08/28/2024 16:53:15 08/28/2024 17:57:00 screening for malformation 352331619 Z36.3 Z3A.21 [id number] KYA EDWARDS MD [place] [address],[place] [address] 09/02/2024 16:15:07 09/02/2024 17:00:41 Uterine scar from previous surgery affecting 74114166 O34.29 - desires RCS Gestation period, 21 weeks 58096993 Z3A.21 Health Concerns Section Related Observation LastModified by Organization Detai ls LastModified Time None Recorded Concern Status LastModified by Organization Details LastModified Time None Recorded Advance Directives Directive N: Payers Encounter Date Sequence Insurance Name Policy Number Policy Hughes Covered Member ID Hughes Member ID Guarantor Name 07/01/2024 1 [facility] [id number] Megan Buerkett [id number] Megan Buerkett 07/01/2024 1 [facility] [id number] Megan Buerkett [id number] Megan Buerkett 08/01/2024 1 [facility] [id number] Megan Buerkett [id number] Megan Buerkett 08/28/2024 1 [employer] [id number] Megan Buerkett [id number] Megan Buerkett 09/02/2024 1 [employer] [id number] Megan Buerkett [id number] Megan Buerkett OBGyn Episode Ob Episode Information Episode Created Date Number of Fetuses Patient Bloodtype Patient rh Status Prepregnancy Weight lbs Domestic Partner Domestic Partner Phone Father Name Security Professional Status 06/03/20 24 1 CLOSED Fetus Data First Name Last Name Admitted to NICU Weight (g) Sex Living Outcome Pediatric Complications Fetus ID Race Codes Race Delivery Type M Full Term [id number] Primary Bigg Calculation Initial Bigg Date Initial [...] Post Complications Tubal Sterilization Discharge Date Comments 3 Discharge Information Feeding Method Contraceptive Method Maternal HG B and HCT Levels Ob Episode Information Episode Created Date Number of Fetuses Patient Bloodtype Patient rh Status Prepregnancy Weight lbs Domestic Partner Domestic Partner Phone Father Name Security Professional Status 07/01/20 24 1 161 OPEN Fetus Data First Name Last Name Admitted to NICU Weight (g) Sex Living Outcome Pediatric Complications Fetus ID Race Codes Race Delivery Type [id number] Problems Problem Notes Problem Name Start Date End Date Resolution Snomed Code Not e Past history of gestational hypertension 466480786 ldASA Past history of section 546381931 leaning towards RCS Bigg Calculation Initial Bigg [...] Date Ultra Sound Latest Days Gestation 0 [email or web address] 07/01/2024 01/09/20 25 0 Pre- Flowsheet Flowsheet Date 07/01/2024 Cain Score Blood Edema Fundus Height Fundus Units Glucose Ketones Leukocytes Nitrite Labor Signs Protein Cervic Dilation Cervic Effacement Cervic Station Type Weight in lbs Pre/Post Dialysis Refused Weight 161.718618646952 BP Diastolic BP Location Tested BP Systolic BP Type 73 L arm 109 sitting Fetus Heart Rate Present A Present Fetus Movement Comments Patient presents to [facility] care. Mild nausea, improved with unisom/b6. No [...] Type Weight in lbs Pre/Post Dialysis Refused 169.414629010266 BP Diastolic BP Location Tested BP Systolic [...] Type Weight in lbs Pre/Post Dialysis Refused [id number] BP Diastolic BP Location Tested BP Systolic [...] Domestic Partner Domestic Partner Phone Father Name Security Professional Status 06/03/20 24 1 CLOSED Fetus Data First Name Last Name Admitted to NICU Weight (g) Sex Living Outcome Pediatric Complications Fetus ID Race Codes Race Delivery Type , Induced [id number] Bigg Calculation Initial Bigg Date Initial Exam [...]
--- OUTSIDE RECORDS SUMMARY | 2024-11-19 10:30 | XMS_ITS | Clinical Summary ---
Author Organization [facility] [address] Address [address] [place] [address] Care Team Providers Care Field Nurse Case Manager Name Role Phone Talita Gilliam MD Primary Care Provider [phone] Allergies No known active allergies Medications albuterol [...] Mother Daisha Granda Alive Paternal Grandfather Jamari Leal Sister Enid Granda Alive Social History Tobacco Use Types Packs/Day Years Used Date Smoking Tobacco: Never Smokeless Tobacco: Never Tobacco Cessation:Counseling Given: Not Answered Alcohol Use Standard Drinks/Week Comments Yes 0 (1 standard drink = 0.6 oz pur e alcohol) Comments No Sex and Gender Information Value Date Recorded Sex Assigned at Not on file 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 See individual assays for performing site location. CLINICAL INFORMATION [facility] [place] Comment:Information not prov ided LAST MENSTRUAL PERIOD [facility] [place] Comment:INFORMATION NOT PROV IDED PREV PAP: [facility] [place] Comment:INFORMATION NOT PROV IDED PREV BX: [facility] [place] Comment:INFORMATION NOT PROV IDED SOURCE [facility] [place] Comment:Endocervix ADEQUACY: [facility] [place] Comment: Satisfactory for evaluation. Endocervical/transformation zone component present. Age and/or menstrual status not provided PAP INTERP [facility] [place] Comment:Negative for intraep ithelial lesion or malignancy. COMMENT (PAP TEST) [facility] [place] Comment: This Pap test has been evaluated with computer assisted technology. NEWS AGENT: Karuna est [facility] [place] Comment: LMT, CT(ASCP) CT screening location: [place] [address] [place] [address] EXPLANATORY NOTE [facility] [place] Comment: EXPLANATORY NOTE: The Pap is a [...] C TRAC RNA NOT DETECTED NOT DETECTED [facility] [place] N.GONORRHOEAE RNA, TMA NOT DETECTED NOT DETECTED [facility] [place] COMMENT INFECTIOUS DISEASE [facility] [place] Comment: The analytical performance characteristics of this assay, when used to test SurePath(TM) specimens have been determined by [facility]. The modifications have not been cleared or approved by the FDA. This assay has been validated pursuant to the CLIA regulations and is used for clinical purposes. For additional information, please refer to https://education.Pervacio/faq/KIP634 (This link is being provided for information/ educational purposes only.) Test Performed at: [facility] [address] [id number] Sreedhar Luna D.O., MPH SL Genital SWAB OF ENDOCERVIX / Unknown 02/02/2022 4:28 PM CDT 02/03/2022 3:12 AM CDT us Idalia Caruso MD PATHOLOGY/CYTOLOGY ORD ERABLES Final Result [facility] [phone] [facility] [id number] [phone] from Last 3 Months or Most Recently Relevant to Health Maintenance Insurance [facility] MEDICAID Advance Directives For more information, please contact: [phone] * Full Code (Latest Code Status on File) Date Activated Date Inactivated Comments 01/26/2022 4:59 PM 01/27/2022 1:52 AM Care Teams Field Nurse Case Manager Relationship Specialty Start Date End Date Talita Gilliam MD [address] [facility] [address] [place] [address] PCP - General Family Practice 09/29/20
--- OUTSIDE RECORDS SUMMARY | 2024-11-19 10:31 | XMS_ITS | Clinical Summary ---
Author Organization [address] Address [address] [place] [phone] Care Team Providers Care Jacker Feeder Name Role Phone Perla Muñoz Primary Care Provider [phone] Allergies No known active allergies Medications albuterol [...] N/A Assessment & Plan (10/02/2023 7:50 AM MASTER CONTROL SUPERVISOR): Health Maintenance: -PCV20: N/A -Tdap vaccine: 2022 [...] CDT Gender Identity Female 09/18/2023 8:46 PM MASTER CONTROL SUPERVISOR Sexual Orientation Straight 09/18/2023 8: 46 PM MASTER CONTROL SUPERVISOR Obstetrics History Last Filed Vital Signs Vital [...] 2024 04/26/2022, 2010 Depression Screening 10/02/2024 10/02/2023, 02/27/20 24 Regular Well Visit/Exam 18-64 10/02/2024 10/02/2023 Cervical Cancer Screening 02/02/2027 02/02/2022 DTaP/Tdap/Td Vaccine (8 - Td or Tdap) 09/18/2032 09/18/2022, 03/11/2008, 02/08/1999, Additional history exists Hepatitis B Screening Completed 02/26/1995 , 07/06/1994, 02/24/1994 Varicella Vaccines Discontinued 12/10/1998 HPV Vaccines Aged Out No longer eligi ble based on patient's age to complete this topic Pneumococcal vaccine <65 Aged Out No longer eligible based on patient's age to complete this topic Procedures Procedure Name Priority Date/Time Associated Diagnosis Comments PAP SMEAR Routine 02/02/2022 from Last 3 Months or Most Recently Relevant to Health Maintenance Results * PAP SMEAR (02/02/2022) Historical Provider HEALTH MAINTENANCE Final Result from Last 3 Months or Most Recently Relevant to Health Maintenance Insurance [facility] Care Teams Jacker Feeder Relationship Specialty Start Date End Date Perla Muñoz PA [address] [place], [place] [id number] PCP - General Family Medicine 10/02/23
--- OUTSIDE RECORDS SUMMARY | 2024-11-19 10:31 | XMS_ITS | Clinical Summary ---
Author Organization [facility] Address [address] [place] [address] Care Team Providers Care Manager Programming Name Role Phone Unavailable Primary Care Provider Unavailabl e Source Comments [facility],non-owned Affiliates and Associated Physician Practices is amultiple site organization consisting of ambulatory clinics and hospital sitesin [place], [place], [place] and [place]. This disclosure is being madepursuant to the Care Everywhere program and may not contain all information available regarding this patient. Last updated 18.[facility] Allergies No known active allergies Medications * Be aware that medications may not be up to date on this document. Alwaysverify current medications with the patient. No known medications Social History Tobacco Use Types Packs/Day Years Used Date Smoking Tobacco: Never Smokeless Tobacco: Never Comments Unknown Sex and Gender Information Value Date Recorded Sex Assigned at Not on file Legal Sex Female 12:02 PM CDT Gender Identity Not on file Sexual Orientation Not on file Plan of Treatment Health Maintenance Due Date Last Done Comments PAP SMEAR 1993 HIV SCREENING 2008 HEPATITIS C SCREENING 10/22/2011 DTAP/TDAP/TD VACCINES (1 - Tdap) 2012 HEPATITIS B VACCINE (1 of 3 - 19+ 3-dose series) 2012 COVID-19 VACCINE ( - 2023-2 5 season) 2024 DEPRESSION SCREENING 08/06/2024 INFLUENZA VACCINE (Season Ended) 2025 ZOSTER VACCINE (1 of 2) 10/27/2043 HIB VACCINE Aged Out No longer eligi ble based on patient's age to complete this topic HPV VACCINE Aged Out No longer eligi ble based on patient's age to complete this topic MENINGOCOCCAL (Group B) VACC INE SHARED DECISION-MAKING Aged Out No longer eligibl e based on patient's age to complete this topic MENINGOCOCCAL GROUPS A/C/Y/W VACCINE Aged Out No longer eligible b ased on patient's age to complete this topic PNEUMOCOCCAL VACCINE Aged Out No long er eligible based on patient's age to complete this topic Insurance [facility]
[2024-11-19 11:24] LABS: Glucose 1 Hour PP 50gm Dose 154 mg/dL
== END 2024-11-19 09:39 | disposition home or self-care (01) ==
LOC: ANHLAB 09:41
PROVIDERS: PCP Physician Assistant; Visit Provider Student in an Organized Health Care Education/Training Program
DX: Z34.90 Encounter for supervision of normal pregnancy, unspecified, unspecified trimester (principal)
CPT/HCPCS: 36415; 82947

== ENCOUNTER 2024-11-21 06:45 | Outpatient (CLI) | payer BC, SELFPAY ==
--- OUTSIDE RECORDS SUMMARY | 2024-11-21 06:49 | XMS_ITS | Clinical Summary ---
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 See individual assays for performing site location. CLINICAL INFORMATION [facility] [place] Comment:Information not prov ided LAST MENSTRUAL PERIOD [facility] [place] Comment:INFORMATION NOT PROV IDED PREV PAP: [facility] [place] Comment:INFORMATION NOT PROV IDED PREV BX: [facility] [place] Comment:INFORMATION NOT PROV IDED SOURCE [facility] [place] Comment:Endocervix ADEQUACY: [facility] [place] Comment: Satisfactory for evaluation. Endocervical/transformation zone component present. Age and/or menstrual status not provided PAP INTERP [facility] [place] Comment:Negative for intraep ithelial lesion or malignancy. COMMENT (PAP TEST) [facility] [place] Comment: This Pap test has been evaluated with computer assisted technology. LOSS PREVENTION/SAFETY DISTRICT MANAGER: Karuna est [facility] [place] Comment: LMT, CT(ASCP) CT screening location: [place] [address] [place] [address] EXPLANATORY NOTE [facility] [place] Comment: EXPLANATORY NOTE: The Pap is a [...] C TRAC RNA NOT DETECTED NOT DETECTED [facility] [place] N.GONORRHOEAE RNA, TMA NOT DETECTED NOT DETECTED [facility] [place] COMMENT INFECTIOUS DISEASE [facility] [place] Comment: The analytical performance characteristics of this assay, when used to test SurePath(TM) specimens have been determined by [facility]. The modifications have not been cleared or approved by the FDA. This assay has been validated pursuant to the CLIA regulations and is used for clinical purposes. For additional information, please refer to https://education.[employer] Resources/faq/GMP068 (This link is being provided for information/ educational purposes only.) Test Performed at: [facility] [id number] [id number] Sreedhar Luna D.O., MPH SL Genital SWAB OF ENDOCERVIX / Unknown 02/02/2022 4:28 PM CDT 02/03/2022 3:12 AM CDT us Idalia Caruso MD PATHOLOGY/CYTOLOGY ORD ERABLES Final Result [facility] [phone] [facility] [address] [phone] from Last 3 Months or Most Recently Relevant to Health Maintenance Insurance [facility] MEDICA[facility] Advance Directives For more information, please contact: [phone] * Full Code (Latest Code Status on File) Date Activated Date Inactivated Comments 01/26/2022 4:59 PM 01/27/2022 1:52 AM Care Teams Ballpoint Pen Assembly Machine Operator Relationship Specialty Start Date End Date Talita Gilliam MD [address] [facility] [address] [place] [address] PCP - General Family Practice 09/29/20
--- OUTSIDE RECORDS SUMMARY | 2024-11-21 06:49 | XMS_ITS | Referral Summary ---
Author Organization [address] Address [address] [place] [phone] Care Team Providers Care Gaming Surveillance Observer Name Role Phone Perla Muñoz Primary Care Provider [phone] Allergies No known active allergies Medications albuterol [...] N/A Assessment & Plan (10/02/2023 7:50 AM PAPER PATTERN FOLDER): Health Maintenance: -PCV20: N/A -Tdap vaccine: 2022 [...] CDT Gender Identity Female 09/18/2023 8:46 PM PAPER PATTERN FOLDER Sexual Orientation Straight 09/18/2023 8: 46 PM PAPER PATTERN FOLDER Last Filed Vital Signs Vital Sign Reading [...] Most Recently Relevant to Health Maintenance Insurance [facility] Care Teams Gaming Surveillance Observer Relationship Specialty Start Date End Date Perla Muñoz PA [address] [place] [address] PCP - General Family Medicine 10/02/23
--- OUTSIDE RECORDS SUMMARY | 2024-11-21 06:49 | XMS_ITS | Clinical Summary ---
Author Organization [address] Address [address] [place] [phone] Care Team Providers Care Manager Global Name Role Phone Perla Muñoz Primary Care Provider [phone] Allergies No known active allergies Medications albuterol [...] N/A Assessment & Plan (10/02/2023 7:50 AM LANDSCAPE MAINTENANCE INTERNSHIP): Health Maintenance: -PCV20: N/A -Tdap vaccine: 2022 [...] CDT Gender Identity Female 09/18/2023 8:46 PM LANDSCAPE MAINTENANCE INTERNSHIP Sexual Orientation Straight 09/18/2023 8: 46 PM LANDSCAPE MAINTENANCE INTERNSHIP Obstetrics History Last Filed Vital Signs Vital [...] Most Recently Relevant to Health Maintenance Insurance [facility] Care Teams Manager Global Relationship Specialty Start Date End Date Perla Muñoz PA [address] [place], [place] [phone] PCP - General Family Medicine 10/02/23
--- OUTSIDE RECORDS SUMMARY | 2024-11-21 06:49 | XMS_ITS | Clinical Summary ---
Author Organization [facility] Address [address] [place] [address] Care Team Providers Care Stock Roller Name Role Phone Unavailable Primary Care Provider Unavailabl e Source Comments [facility],non-owned Affiliates and Associated Physician Practices is amultiple site organization consisting of ambulatory clinics and hospital sitesin [place], [place], [place] and [place]. This disclosure is being madepursuant to the Care Everywhere program and may not contain all information available regarding this patient. Last updated 18.[facility] Allergies No known active allergies Medications * [...] patient's age to complete this topic Insurance [facility]
--- OUTSIDE RECORDS SUMMARY | 2024-11-21 06:49 | XMS_ITS | Data Portability ---
Author Organization [facility] Claude Address [address] [place] [place] [address] Care Team Providers Care Field Radio Operator Name Role Phone OSCAR STEVEN Primary Care Provider [phone] Assessment No assessment recorded. Plan of Treatment Reminders Order Date Submit Date Provider Last Modified By Organization Details Last Modified Time Details Appointments None recorded. Lab None recorded. Referral None recorded. Procedures None recorded. Surgeries None recorded. Imaging US, obstetric, 2nd or 3rd trimester 2024 025 [address], [address], [place], [address], 5 21:13:52 US, obstetric, nuchal translucenc y 2023 [address], [address], [place], [address], 18:14:52 US, obstetric, 1st trimester [address] [facility] [address], [place], [address], 18:14:52 Medication Orders None recorded. Patient TargetsNo targets recorded. Patient InstructionsNo instructions recorded. Reason for Referral None Reported. Results Created Date Observation Date Name Description Value Unit Range Abnormal Flag Note LastModifiedBy Organization Detail LastModifiedTime 07/07/20 24 07/07/2024 [UNIT Y] ANEUP LOIDY NIPT fraction 12.6% normal Not Available [facility] [address] [facility], [place], [address], 07/07/2024 17:17:14 07/07/20 24 07/07/2024 [UNIT Y] ANEUP LOIDY NIPT Rh(D) nipt RhD DETECT ED normal Not Available [facility] [address] [facility], [place], [address], 07/07/2024 17:17:14 07/07/20 24 07/07/2024 [UNIT Y] ANEUP LOIDY NIPT 22Q11.2 microdeletio n LOW RISK <1 in 10,000 normal Not Available [facility] [address] [facility], [place], [address], 07/07/2024 17:17:14 07/07/20 24 07/07/2024 [UNIT Y] ANEUP LOIDY NIPT sex chromosome aneuploidy NOT DETECT ED normal Not Available [facility] [address] [facility], [place], [address], 07/07/2024 17:17:14 07/07/20 24 07/07/2024 [UNIT Y] ANEUP LOIDY NIPT monosomy X LOW RISK <1 in 10,000 normal Not Available [facility] [address] [facility], [place], [address], 07/07/2024 17:17:14 07/07/20 24 07/07/2024 [UNIT Y] ANEUP LOIDY NIPT trisomy 13 LOW RISK <1 in 10,000 normal Not Available [facility] [address] [facility], [place], [address], 07/07/2024 17:17:14 07/07/20 24 07/07/2024 [UNIT Y] ANEUP LOIDY NIPT trisomy 18 LOW RISK <1 in 10,000 normal Not Available [facility] [address] [facility], [place], [address], 07/07/2024 17:17:14 07/07/20 24 07/07/2024 [UNIT Y] ANEUP LOIDY NIPT trisomy 21 LOW RISK <1 in 10,000 normal Not Available [facility] [address], [place], [address], 07/07/2024 17:17:14 07/07/20 24 07/07/2024 [UNIT Y] ANEUP LOIDY NIPT sex FEMALE normal Not Available [facility] [address], [place], [address], 07/07/2024 17:17:14 07/07/20 24 07/07/2024 [UNIT Y] ANEUP LOIDY NIPT gestation SINGLE TON normal Not Available [facility] [address], [place], [address], 07/07/2024 17:17:14 07/07/20 24 07/07/2024 [UNIT Y] ANEUP LOIDY NIPT for detailed report, see pdf See PDF normal Not Available [facility] [address] [facility], [place], [address], 07/07/2024 17:17:14 07/12/20 24 07/12/2024 [UNIT Y] RACHANA Lopez sickle cell disease/beta -thalassemia /hemoglobino pathies carrier screen NEGATI VE normal Not Available [facility] [address] [facility] , [place], [address], 07/12/2024 03:15:13 07/12/20 24 07/12/2024 [UNIT Y] RACHANA Lopez alpha-thalas semia carrier screen NEGATI VE normal Not Available [facility] [address] [facility] , [place], [address], 07/12/2024 03:15:13 07/12/20 24 07/12/2024 [UNIT Y] RACHANA Lopez cystic fibrosis carrier screen NEGATI VE normal Not Available [facility] [address] [facility] , [place], [address], 07/12/2024 03:15:13 07/12/20 24 07/12/2024 [UNIT Y] RACHANA Lopez spinal muscular atrophy carrier screen NEGATI VE 3 SMN1 copies , SNP not presen t normal Not Available [facility] [address], [place], [address], 07/12/2024 03:15:13 07/12/20 24 07/12/2024 [UNIT Y] RACHANA Lopez for detailed report, see pdf See PDF normal Not Available [facility] [address], [place], [address], 07/12/2024 03:15:13 07/01/20 24 07/01/2024 CBC W/DIF F WBC 7.3 10'3/ uL 3.5-10 .5 Not Available [facility] (Lab) [address], [place], [address], 07/02/2024 10:48:58 07/01/20 24 07/01/2024 CBC W/DIF F RBC 4.20 10'6/ uL (based on docume nted legal sex) 3.80-5 .20 Not Available [facility] (Lab) [address], [place], [address], 07/02/2024 10:48:58 07/01/20 24 07/01/2024 CBC W/DIF F HGB 12.3 g/dL (based on docume nted legal sex) 11.6-1 5.4 Not Available [facility] (Lab) [address], [place], [address], 07/02/2024 10:48:58 07/01/20 24 07/01/2024 CBC W/DIF F HCT 37.6 % (based on docume nted legal sex) 34.0-4 5.0 Not Available [facility] (Lab) [address], [place], [address], 07/02/2024 10:48:58 07/01/20 24 07/01/2024 CBC W/DIF F MCV 89.5 fL 80.0-9 9.0 Not Available [facility] (Lab) [address] [facility], [place], [address], 07/02/2024 10:48:58 07/01/20 24 07/01/2024 CBC W/DIF F MCH 29.3 pg 27.0-3 4.0 Not Available [facility] (Lab) [address] [facility], [place], [address], 07/02/2024 10:48:58 07/01/20 24 07/01/2024 CBC W/DIF F MCHC 32.7 g/dL 32.0-3 5.5 Not Available [facility] (Lab) [address], [place], [address], 07/02/2024 10:48:58 07/01/20 24 07/01/2024 CBC W/DIF F RDW 12.3 % 11.0-1 5.0 Not Available [facility] (Lab) [address] [facility], [place], [address], 07/02/2024 10:48:58 07/01/20 24 07/01/2024 CBC W/DIF F plt 230 10'3/ uL 150-40 0 Not Available [facility] (Lab) [address], [place], [address], 07/02/2024 10:48:58 07/01/20 24 07/01/2024 CBC W/DIF F MPV 10.3 fL 8.8-12 .1 Not Available [facility] (Lab) [address] [facility], [place], [address], 07/02/2024 10:48:58 07/01/20 24 07/01/2024 CBC W/DIF F NRBC's 0.0 % 0.0 Not Available [facility] (Lab) [address] [facility], [place], [address], 07/02/2024 10:48:58 07/01/20 24 07/01/2024 CBC W/DIF F absolute NRBCs 0.0 10'3/ uL no refere nce range establ ished Not Available [facility] (Lab) [address] [facility], [place], [address], 07/02/2024 10:48:58 07/01/20 24 07/01/2024 CBC W/DIF F neutrophils 63.5 % 34.0-7 3.0 Not Available [facility] (Lab) [address] [facility], [place], [address], 07/02/2024 10:48:58 07/01/20 24 07/01/2024 CBC W/DIF F lymphocytes 27.9 % 15.0-5 0.0 Not Available [facility] (Lab) [address] [facility], [place], [address], 07/02/2024 10:48:58 07/01/20 24 07/01/2024 CBC W/DIF F monocytes 6.6 % 1.0-15 .0 Not Available [facility] (Lab) [address] [facility], [place], [address], 07/02/2024 10:48:58 07/01/20 24 07/01/2024 CBC W/DIF F eosinophils 1.4 % 0.0-8. 0 Not Available [facility] (Lab) [address] [facility], [place], [address], 07/02/2024 10:48:58 07/01/20 24 07/01/2024 CBC W/DIF F basophils 0.3 % 0.0-2. 0 Not Available [facility] (Lab) [address] [facility], [place], [address], 07/02/2024 10:48:58 07/01/20 24 07/01/2024 CBC W/DIF F immature granulocytes 0.3 % no define d refere nce range Not Available [facility] (Lab) [address] [facility], [place], [address], 07/02/2024 10:48:58 07/01/20 24 07/01/2024 CBC W/DIF F absolute neutrophils 4.7 10'3/ uL 1.5-8. 0 Not Available [facility] (Lab) [address] [facility], [place], [address], 07/02/2024 10:48:58 07/01/20 24 07/01/2024 CBC W/DIF F absolute lymphocytes 2.0 10'3/ uL 1.0-4. 0 Not Available [facility] (Lab) [address] [facility], [place], [address], 07/02/2024 10:48:58 07/01/20 24 07/01/2024 CBC W/DIF F absolute monocytes 0.5 10'3/ uL 0.2-1. 0 Not Available [facility] (Lab) [address] [facility], [place], [address], 07/02/2024 10:48:58 07/01/20 24 07/01/2024 CBC W/DIF F absolute eosinophils 0.1 10'3/ uL 0.0-0. 6 Not Available [facility] (Lab) [address] [facility], [place], [address], 07/02/2024 10:48:58 07/01/20 24 07/01/2024 CBC W/DIF F absolute basophils 0.0 10'3/ uL 0.0-0. 3 Not Available [facility] (Lab) [address] [facility], [place], [address], 07/02/2024 10:48:58 07/01/20 24 07/01/2024 CBC W/DIF [...] resul ts are expec henrietta. Not Available [facility] (Lab) [address], [place], [address], 07/02/2024 10:48:58 07/01/20 24 07/01/2024 HIV 1/2 ANTIG EN/AN TIBOD Y, REFLE X CONFI RMATI ON HIV antigen/anti body Nonrea ctive nonrea ctive HIV-1 antig en and HIV-1 /HIV- 2 antib odies were not detec henrietta. No labor atory evide nce of HIV infec tion. Not Available [facility] (Lab) [address], [place], [address], 07/02/2024 10:48:59 07/01/20 24 07/01/2024 HEPAT ITIS B SURFA CE ANTIG EN hepatitis B surface antigen Non-re active non-re active This assay was perfo rmed using [employer] ratio n reage nts and test kits. Value s obtai joshua with other assay metho ds or kits canno t be used inter castelan eably . Not Available [facility] (Lab) [address], [place], [address], 07/02/2024 10:48:59 07/01/20 24 07/01/2024 HEPAT ITIS C ANTIB HEAVEN SCREE N, REFLE X TO CONFI RMATI ON hepatitis C antibody Non-re active non-re active Antib odies to HCV Not Detec henrietta, does not exclu de the possi bilit y of expos ure to HCV. Not Available [facility] (Lab) [address], [place], [address], 07/02/2024 10:49:00 07/01/20 24 07/01/2024 RUBEL LA IGG ANTIB HEAVEN, QUANT rubella antibodies, IgG Reacti ve reacti ve Not Available [facility] (Lab) [address], [place], [address], 07/02/2024 10:49:01 07/01/20 24 07/01/2024 RUBEL LA IGG ANTIB HEAVEN, QUANT rubella antibodies, IgG quant 14.6 IU/mL >=10 Non-r eacti ve (Non- Immun e) <10 IU/mL React nava (Immu ne) > or = 10 IU/mL Not Available [facility] (Lab) [address], [place], [address], 07/02/2024 10:49:01 07/01/20 24 07/01/2024 HEMOG LOBIN [...] >8.0% Actio n sugge sted Not Available [facility] (Lab) [address], [place], [address], 07/02/2024 10:49:01 07/01/20 24 07/01/2024 TYPE/ RH/SC REEN ABO/Rh type O POS Not Available [facility] (Lab) [address], [place], [address], 07/02/2024 10:49:02 07/01/20 24 07/01/2024 TYPE/ RH/SC REEN antibody screen NEG Not Available [facility] (Lab) [address], [place], [address], 07/02/2024 10:49:02 07/01/20 24 07/01/2024 TYPE/ RH/SC REEN exp date 2023 23:59 Not Available [facility] (Lab) [address], [place], [address], 07/02/2024 10:49:02 07/01/20 24 07/01/2024 RPR SCREE N, REFLE X TITER /CONF IRMAT ION RPR screen Nonrea ctive nonrea ctive Not Available [facility] (Lab) [address] [facility], [place], [address], 07/02/2024 10:49:02 07/01/20 24 07/01/2024 CULTU RE: URINE result report SEE RESULT S BELOW Test: Cultu re: Urine Speci men Sourc e: Urine - Clean Catch Speci men Type: Urine Speci men Date: 07/01 1151 Resul t Date: 07/03 0635 Resul t Statu s: Final resul t Abnor mal: No Resul ting Lab: [facility] [address] [facility] [address] Tel: CULTU RE ----- ----- ----- --- No growt h in 1 day (dete ction level of 10,00 0 colon ies / ml.) Not Available [facility] (Lab) [address] [facility], [place], [address], 07/03/2024 07:39:05 06/03/20 24 06/03/2024 US, obste tric, follo w-up No observ ation record ed. [email or web address] [address] [facility], [place], [address], 06/04/2024 00:04:14 07/01/20 24 07/01/2024 US, obste tric, nucha l trans lucen cy No observ ation record ed. [email or web address] Claude [address], [place], [address], 07/01/2024 14:51:27 07/01/20 24 07/01/2024 US, obste tric, 1st trime ster No observ ation record ed. [email or web address] Claude [address], [place], [address], 07/01/2024 14:51:37 07/01/20 24 07/01/2024 US, obste tric, nucha l trans lucen cy No observ ation record ed. [email or web address] [address], [place], [address], 07/01/2024 17:58:22 08/28/19 25 08/28/2024 US, obste tric, 2nd or 3rd trime ster No observ ation record ed. [email or web address] Claude [address], [place], [address], 08/28/2024 17:58:09 08/28/19 25 08/28/2024 US, obste tric, 2nd or 3rd trime ster No observ ation record ed. [email or web address] [address], [place], [address], 09/02/2024 23:49:32 Result Notes None recorded. Problems Name Problem SNOMED Code Status Onset Date Resolution Date Notes Provider Name and Address Organization Details Recorded Time 83818408 Active 20[facility] 12:25:12 Past history of gestationa l hypertensi on 038113006 Active Екатерина KYA EDWARDS MD [address], [place], [address], [facility] 4 12:53:07 Past history of section 499372895 Active leaning towards [facility] KYA EDWARDS MD [address], [place], [address], [facility] 5 16:51:36 Past history of section 796075333 Active leaning towards [facility] KYA EDWARDS MD [address], [place], [address], [facility] 5 16:51:37 Past history of gestationa l hypertensi on 533752578 Active Jose EDWARDS MD [address], [place], [address], [place] [facility] 4 12:53:30 Problem Notes None recorded. Procedures Surgical History Date Name Laterality Status Provider Name and Address Organization Details Recorded Time 3 Date of Last Pap Smear completed [facility] 06/03/2024 16:43:39 3 Caesarean Section completed Sharron [facility] 06/03/2024 15:51:55 Imaging Results Imaging Date Name Status LastModified by Organization Details LastModified Time 06/03/2024 US, obstetric, follow-up completed [email or web address] [address], [place], [address], 06/04/2024 00:04:14 07/01/2024 US, obstetric, nuchal translucency completed [email or web address] Claude [address], [place], [address], 07/01/2024 14:51:27 07/01/2024 US, obstetric, 1st trimester completed [email or web address] Claude [address], [place], [address], 07/01/2024 14:51:37 07/01/2024 US, obstetric, nuchal translucency completed [email or web address] [address], [place], [address], 07/01/2024 17:58:22 08/28/2024 US, obstetric, 2nd or 3rd trimester completed [email or web address] Claude [address], [place], [address], 08/28/2024 17:58:09 08/28/2024 US, obstetric, 2nd or 3rd trimester completed [email or web address] [address], [place], [address], 09/02/2024 23:49:32 Procedure Notes None recorded. Medical [...] Updated DateTime 07/01/2024 165.1 cm 26.8 kg/m2 48590.37 g 109 mm[Hg] 73 mm[Hg] [facility] 4 12:20:28 Date Recorded Body height Body mass index (BMI) Body weight Systolic blood pressure Diastolic blood pressure Provider Name and Address Organization Details Last Updated DateTime 08/01/2024 165.1 cm 28.1 kg/m2 38003.11 053 g 108 mm[Hg] 65 mm[Hg] [facility] 4 16:32:42 Date Recorded Body height Body mass index (BMI) Body weight Systolic blood pressure Diastolic blood pressure Provider Name and Address Organization Details Last Updated DateTime 09/02/2024 165.1 cm 29.1 kg/m2 60270.66 475 g 128 mm[Hg] 74 mm[Hg] [facility] 5 16:20:33 Social History Question Answer Notes LastModified by Organizat ion Details LastModified Time Do You Have An Advance Directive? No [email or web address] Information n ot available 06/03/2024 What Is Your Level Of Alcohol Consumption? Occasional [email or web address] Information not available 06/03/2024 How Many Years Have You Consumed Alcohol? 10 [email or web address] Information not available 06/03/2024 Are You Blind Or Do You Have Difficulty Seeing? No [email or web address] Information n ot available 06/03/2024 What Is Your Level Of Caffeine Consumption? Occasional [email or web address] Information not available 06/03/2024 How Much Tobacco Do You Chew? None [email or web address] Information not available 06/03/2024 In The 14 Days Before Symptom Onset, Have You Had Close Contact With A Laboratory-confirm ed COVID-19 While That Case Was Ill? No [email or web address] Information n ot available 06/03/2024 In The 14 Days Before Symptom Onset, Have You Had Close Contact With A Person Who Is Under Investigation For COVID-19 While That Person Was Ill? No [email or web address] Information not available 06/03/2024 Have You Been To An Area Known To Be High Risk For COVID-19? No [email or web address] Information not available 06/03/2024 Are You Deaf Or Do You Have Serious Difficulty Hearing? No [email or web address] Information not available 06/03/2024 What Type Of Diet Are You Following? REGULAR Information n ot available 06/03/2024 What Is The Highest Grade Or Level Of School You Have Completed Or The Highest Degree You Have Received? 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 No [email or web address] Information not available 06/03/2024 Do You Use Protection During Sex? No [email or web address] Information not available 06/03/2024 Do You Use Your Seat Belt Or Car Seat Routinely? Yes [email or web address] Information not available 06/03/2024 Do You Have Smoke And Carbon Monoxide Detectors In Your Home? Yes [email or web address] Information not available 06/03/2024 How Much Tobacco Do You Smoke? No [email or web address] Information not available 06/03/2024 Do You Feel Stressed (tense, Restless, Nervous, Or Anxious, Or Unable To Sleep At Night)? [id number] [email or web address] Information not available 06/03/2024 Do You Use Any Illicit Or Recreational Drugs? Yes [email or web address] Information not available 06/03/2024 Do You Use Sunscreen Routinely? Yes [email or web address] Information not available 06/03/2024 Have You Used IV Drugs? No [email or web address] Information not available 06/03/2024 Sex: Unknown Functional Status Question Answer Note LastModified by Organizat ion Details LastModified Time Are you able to walk? YESWOREST [email or web address] Information not available 06/03/2024 What is your exercise level? Occasional [email or web address] Information not available 06/03/2024 Mental Status None recorded. Family History Relationship Description Onset Age of this Age Resolved Age Notes LastModified by Organization Details LastModified Time Unspecified Relation Family history unknown [email or web address] Not available 2023 15:52:16 Medical History Condition [...] SNOMED-CT Code Diagnosis ICD10 Code Diagnosis Note [id number] Jo-Ann Chester Claude [address] [address] 06/03/2024 15:47:20 06/03/2024 16:36:13 [id number] KYA EDWARDS MD Claude [address] [address] 06/03/2024 15:48:11 06/04/2024 12:49:32 test positive 719149098 Z32.01 1. Exam today within normal limits.2. [...] desires. Past pregn saumya history of section 800590331 Z98.890 - desires TOLAC- risks and benefits of TOLAC vs RCS discussed including risk of uterine rupture Past pregn saumya history of gestational hypertension 567181863 Z87.59 - will recommend bASA at 12 weeks [id number] [facility] [address],[place] [address] 07/01/2024 11:13:22 07/01/2024 12:44:44 screening 375457339 Z36.82 Z3A.12 [id number] KYA EDWARDS MD Claude [address],[place] [address] 07/01/2024 11:13:39 07/01/2024 13:00:04 Past history of section 761871012 Z98.890 - desires TOLAC- risks and benefits of TOLAC vs RCS discussed including risk of uterine rupture Past pregn saumya history of gestational hypertension 498156694 Z87.59 - recommende d bASA at 12 weeks Gestation period, 12 weeks 81718068 Z3A.12 [id number] KYA EDWARDS MD Claude [address],[place] [address] 08/01/2024 16:21:35 08/04/2024 11:23:02 Past history of gestational hypertension 825014320 Z87.59 - recommende d bASA at 12 weeks Uterine sc ar from previous surgery affecting 35203695 O34.29 Gestation period, 17 weeks 43426878 Z3A.17 [id number] [facility] [address],[place] [address] 08/28/2024 16:53:15 08/28/2024 17:57:00 screening for malformation 856816062 Z36.3 Z3A.21 [id number] KYA EDWARDS MD Claude [address],[place] [address] 09/02/2024 16:15:07 09/02/2024 17:00:41 Uterine scar from previous surgery affecting 95487337 O34.29 - desires RCS Gestation period, 21 weeks 27549323 Z3A.21 Health Concerns Section Related Observation LastModified by Organization Detai ls LastModified Time None Recorded Concern Status LastModified by Organization Details LastModified Time None Recorded Advance Directives Directive N: Payers Encounter Date Sequence Insurance Name Policy Number Policy Hughes Covered Member ID Hughes Member ID Guarantor Name 07/01/2024 1 [facility] [id number] Megan Buerkett [id number] Megan Buerkett 07/01/2024 1 [facility] [id number] Megan Buerkett [id number] Megan Buerkett 08/01/2024 1 [facility] [id number] Megan Buerkett [id number] Megan Buerkett 08/28/2024 1 [employer] [id number] Megan Buerkett [id number] Megan Buerkett 09/02/2024 1 [employer] [id number] Megan Buerkett [id number] Megan Buerkett OBGyn Episode Ob Episode Information Episode Created Date Number of Fetuses Patient Bloodtype Patient rh Status Prepregnancy Weight lbs Domestic Partner Domestic Partner Phone Father Name Bag Maker Status 06/03/20 24 1 CLOSED Fetus Data First Name Last Name Admitted to NICU Weight (g) Sex Living Outcome Pediatric Complications Fetus ID Race Codes Race Delivery Type M Full Term [id number] Primary Bigg Calculation Initial Bigg Date Initial [...] Domestic Partner Domestic Partner Phone Father Name Bag Maker Status 07/01/20 24 1 161 OPEN Fetus Data First Name Last Name Admitted to NICU Weight (g) Sex Living Outcome Pediatric Complications Fetus ID Race Codes Race Delivery Type [id number] Problems Problem Notes Problem Name Start Date End Date Resolution Snomed Code Not e Past history of gestational hypertension 230263148 ldASA Past history of section 564908283 leaning towards RCS Bigg Calculation Initial Bigg [...] Date Ultra Sound Latest Days Gestation 0 [email or web address] 07/01/2024 01/09/20 25 0 Pre- Flowsheet Flowsheet Date 07/01/2024 Cain Score Blood Edema Fundus Height Fundus Units Glucose Ketones Leukocytes Nitrite Labor Signs Protein Cervic Dilation Cervic Effacement Cervic Station Type Weight in lbs Pre/Post Dialysis Refused Weight 161.819487355175 BP Diastolic BP Location Tested BP Systolic BP Type 73 L arm 109 sitting Fetus Heart Rate Present A Present Fetus Movement Comments [facility]. Mild nausea, improved with unisom/b6. [...] Type Weight in lbs Pre/Post Dialysis Refused [id number] BP Diastolic BP Location Tested BP Systolic [...] Type Weight in lbs Pre/Post Dialysis Refused [id number] BP Diastolic BP Location Tested BP Systolic [...] Domestic Partner Domestic Partner Phone Father Name Bag Maker Status 06/03/20 24 1 CLOSED Fetus Data First Name Last Name Admitted to NICU Weight (g) Sex Living Outcome Pediatric Complications Fetus ID Race Codes Race Delivery Type , Induced [id number] Bigg Calculation Initial Bigg Date Initial Exam [...]
[2024-11-21 07:41] LABS: Glucose Fasting Gestational 80 mg/dL (>/=95)
[2024-11-21 09:02] LABS: Glucose 1 Hour Gest 186 mg/dL (>/=180)
[2024-11-21 10:01] LABS: Glucose 2 Hour Gest 167 mg/dL (>/= 155)
[2024-11-21 11:03] LABS: Glucose 3 Hour Gest 101 mg/dL (>/=140)
== END 2024-11-21 06:46 | disposition home or self-care (01) ==
PROVIDERS: Visit Provider Student in an Organized Health Care Education/Training Program
DX: O99.810 Abnormal glucose complicating pregnancy (principal); Z3A.00 Weeks of gestation of pregnancy not specified
CPT/HCPCS: 36415; 82951; 82952

== ENCOUNTER 2024-12-02 14:30 | Outpatient (RCR) | payer BC, SELFPAY | END 2025-02-17 07:57 | disposition home or self-care (01) | LOC: ANHDMC 14:30 | PROVIDERS: Visit Provider Student in an Organized Health Care Education/Training Program | DX: O24.419 Gestational diabetes mellitus in pregnancy, unspecified control (principal); Z71.89 Other specified counseling | CPT/HCPCS: G0108 ==

== ENCOUNTER 2024-12-08 14:46 | Outpatient (CLI) | payer BC, SELFPAY ==
--- NOTE | ~2024-12-08 | US_ITS ---
EXAMINATION: US OB follow up DATE: 12/08/2024 15:33 INDICATION: Assess growth during third trimester TECHNIQUE: Real-time ultrasound of the pelvis was performed. The interpreting radiologist was not pre sent for the study. COMPARISON: None. FINDINGS: There is a single living fetus in vertex presentation. The placenta is anterior and not low-lying. N ormal cervical length of 4.1 cm. heart rate is 114 beats per minute (bpm). The amniotic fluid i ndex is 16.3 cm, which is normal (5th%-95%: 7.9-24.9 cm at 35 weeks estimated gestational age). The following biometric data were obtained: BPD: 9.4 cm -> 38 weeks 0 days Head circumference: 32.8 cm -> 37 weeks 1 days Abdominal circumference: 32.1 cm -> 36 weeks 0 days Femur length: 7.0 cm -> 35 weeks 5 days These measurements are concordant. Head circumference to abdominal circumference ratio: 1.02 (normal range 0.92*1.06). Estimated weight: 2891 g (+/-) 434 g or 6 lbs. 6 oz. (+/-) 15 oz. IMPRESSION: 1. Single living fetus in vertex presentation with heart rate of 114 bpm. 2. Normal amniotic fluid index of 16.3 cm. 3. Estimated weight is 69th percentile by Hadlock criteria when 01/08/2025 is used as the estimat ed date of delivery (JAMILA). Please correlate with clinical information or earlier ultrasounds for most accurate JAMILA. Reviewed, dictated and finalized at location A. IMPRESSION: 1. Single living fetus in vertex presentation with heart rate of 114 bpm. 2. Normal amniotic fluid index of 16.3 cm. 3. Estimated weight is 69th percentile by Hadlock criteria when 01/08/2025 is used as the estimated date of delivery (JAMILA). Please correlate with clinical information or earlier ultrasounds for most accurate JAMILA.
== END 2024-12-08 14:47 | disposition home or self-care (01) ==
PROVIDERS: PCP Obstetrics & Gynecology; Visit Provider Obstetrics & Gynecology
DX: Z34.90 Encounter for supervision of normal pregnancy, unspecified, unspecified trimester (principal); Z3A.00 Weeks of gestation of pregnancy not specified
CPT/HCPCS: 76816

== ENCOUNTER 2024-12-29 08:30 | Outpatient (RCR) | payer BC, SELFPAY ==
[2024-11-25 16:29] LABS: Basophils Percent Auto 0.1 % (0.2-1.2); Eosinophils Absolute Auto 0.1 K/mm3 (0-0.3); Eosinophils Percent Auto 0.9 % (0-4.4); Hematocrit 31.7 % (37.0-47.0); Hemoglobin 10.5 g/dL (12.0-15.0); Immature Granulocyte Absolute 0.08 K/mm3 (0.00-0.031); Immature Granulocyte Percent A 0.8 % (0-0.5); Lymphocytes Absolute Auto 2.23 K/mm3 (0.9-3.2); Lymphocytes Percent Auto 21.7 % (18.3-44.2); Mean Corpuscular HGB Conc 33.1 g/dl (32-36); Mean Corpuscular Hemoglobin 30.2 pg (26-34); Mean Corpuscular Volume 91.1 fl (80-100); Mean Platelet Volume 9.7 fl (7.4-10.4); Monocytes Absolute Auto 0.9 K/mm3 (0.1-0.6); Monocytes Percent Auto 9.2 % (2.6-8.5); Neutrophils Absolute Auto 6.9 K/mm3 (1.3-6.7); Neutrophils Percent Auto 67.3 % (45.5-73.1); Platelet Count Result 162 k/mm3 (150-375); Red Blood Count 3.48 M/mm3 (4.2-5.4); Red Cell Distribution Width 13.6 % (11.5-14.5); White Blood Count 10.3 K/mm3 (4.5-10.0)
[2024-11-25 16:37] LABS: Total Protein Urine Random 8 mg/dL; Ur Ttl Prot Creatinine Ratio 0.05 mg/mg (0-0.20)
[2024-11-25 16:42] LABS: Add Urine Microscopic? YES; Appearance Urine Cloudy (Clear); Bacteria Urine 4+ /hpf; Bilirubin Urine Negative (Negative); Blood Urine Negative (Negative); Color Urine Yellow (Yellow); Glucose Urine UA Negative (Negative); Ketones Urine 4+ mg/dL (Negative); Leukocyte Esterase Ur 1+ LEU/UL (Negative); Need Manual Microscopic Reviewed; Nitrate Urine Negative (Negative); Protein Urine 1+ mg/dL (Negative); Specific Grav Ur 1.022 (1.001-1.035); Squamous Epithelial Cell Urine Moderate /hpf (Few); WBC Urine 51-100 /hpf (0-3); pH Urine 6.5 (5.0-9.0)
[2024-11-25 16:45] LABS: Alanine Aminotransferase 29 U/L (6-35); Albumin Level 3.8 g/dL (3.5-5.1); Alkaline Phosphatase 85 U/L (38-126); Anion Gap 8 mmol/L (4-12); Aspartate Amino Transferase 28 U/L (14-36); Bilirubin,Total 0.8 mg/dL (0.2-1.3); Blood Urea Nitrogen 5 mg/dL (7-17); Calcium 8.8 mg/dL (8.4-10.2); Carbon Dioxide 19 mmol/L (22-30); Chloride 106 mmol/L (98-107); Estimated Glomerular Filt Rate > 60; Glucose 77 mg/dL (65-110); Potassium 3.4 mmol/L (3.4-5.0); Sodium 133 mmol/L (137-145); Uric Acid 4.1 mg/dL (2.5-7.5)
[2024-11-25 17:00] VITALS: BP 127/67; PULSE 71
[2024-11-28 15:02] VITALS: BP 124/75; PULSE 102
[2024-12-02 13:48] VITALS: BP 124/68; PULSE 80
[2024-12-06 10:04] VITALS: BP 129/71; PULSE 74
[2024-12-13 11:09] VITALS: BP 127/73; PULSE 75
[2024-12-15 15:35] VITALS: BP 135/83; PULSE 70
[2024-12-19 09:18] VITALS: BP 126/84; PULSE 79
[2024-12-22 15:10] VITALS: BP 138/89; PULSE 84
[2024-12-25 14:28] VITALS: BP 125/78; PULSE 84
--- NOTE | ~2024-12-29 | US_ITS ---
EXAMINATION: US OB BPP wo non-stress DATE: 12/13/2024 10:51 INDICATION: Nonreactive nonstress test during third trimester . TECHNIQUE: Real-time pelvic ultrasound was performed. The interpreting radiologist was not present fo r the study. COMPARISON: None. FINDINGS: There is a single living fetus in vertex presentation. The placenta is anterior and not low-lying. F etal heart rate is 148 beats per minute (bpm). Normal amniotic fluid index of 16.9 cm (5th%-95%: 7.7- 24.9 cm at 36 weeks estimated gestational age). Biophysical profile performed by the technologist: breathing (30 sec sustained breathing in 30 minutes): 2 out of 2 movement (3 gross body movements in 30 minutes): 2 out of 2 tone (one episode of behywyz-xblyticme-hhutnrc limb movement): 2 out of 2 Amniotic fluid pocket (2 cm): 2 out of 2 Total score: 8 out of 8 IMPRESSION: 1. Single living fetus in vertex presentation with heart rate of 148 bpm. 2. Biophysical profile 8 out of 8. 3. Normal amniotic fluid index of 16.9 cm. Reviewed, dictated and finalized at location A.
[2024-12-29 09:02] VITALS: BP 127/83; PULSE 64
== END 2025-01-24 06:58 | disposition home or self-care (01) ==
LOC: ANHOBOP 08:30
PROVIDERS: PCP Physician Assistant; Visit Provider Student in an Organized Health Care Education/Training Program
DX: O24.419 Gestational diabetes mellitus in pregnancy, unspecified control (principal); O16.3 Unspecified maternal hypertension, third trimester; Z3A.33 33 weeks gestation of pregnancy; Z3A.34 34 weeks gestation of pregnancy; Z3A.35 35 weeks gestation of pregnancy; Z3A.36 36 weeks gestation of pregnancy; Z3A.37 37 weeks gestation of pregnancy; Z3A.38 38 weeks gestation of pregnancy
CPT/HCPCS: 36415; 59025; 76819; 80053; 81001; 82570; 84156; 84550; 85025

== ENCOUNTER 2025-01-01 05:18 | Inpatient (IN) | payer BC, SELFPAY ==
[2025-01-01] VITALS (48 sets, daily range): BP systolic 125–157; BP diastolic 68–98; PULSE 41–101; RESP 12–18; TEMP 36.2–36.9; O2SAT 97–100; BMI 32.5
--- OUTSIDE RECORDS SUMMARY | 2025-01-01 01:04 | XMS_ITS | Clinical Summary ---
Author Organization [address] Address [address] [place] [address] Care Team Providers Care Bakery Manager Name Role Phone Perla Muñoz Primary Care Provider [phone] Allergies No known active allergies Medications albuterol [...] N/A Assessment & Plan (10/02/2023 7:50 AM LINE MAINTENANCE): Health Maintenance: -PCV20: N/A -Tdap vaccine: 2022 [...] CDT Gender Identity Female 09/18/2023 8:46 PM LINE MAINTENANCE Sexual Orientation Straight 09/18/2023 8: 46 PM LINE MAINTENANCE Obstetrics History Last Filed Vital Signs Vital [...] P M CDT Height 165.1 cm (5' 5) 02/28/2024 1:34 PM CDT Body Mass Index 27.36 02/28/2024 1:34 PM CDT Plan of Treatment Health Maintenance Due Date Last Done Comments Hepatitis C Screening 1993 Covid-19 Vaccine ( season) 2024 11/15/2020, 10/25/2020 Depression Screening 10/02/2024 10/02/2023, 10/02/19 Regular Well Visit/Exam 18-64 10/02/2024 10/02/2023 Influenza Vaccine (Season Ended) 2025 04/26/2022, 06/01/2011 Cervical Cancer Screening 02/02/2027 02/02/2022 DTaP/Tdap/Td Vaccine [...] Most Recently Relevant to Health Maintenance Insurance [facility] Care Teams Bakery Manager Relationship Specialty Start Date End Date Perla Muñoz PA [address] [place], [place] [id number] PCP - General Family Medicine 10/02/23
--- OUTSIDE RECORDS SUMMARY | 2025-01-01 01:04 | XMS_ITS | Referral Summary ---
Author Organization [address] Address [address] [place] [id number] Care Team Providers Care Form Raiser Name Role Phone Pelra Muñoz Primary Care Provider [phone] Allergies No known active allergies Medications albuterol [...] N/A Assessment & Plan (10/02/2023 7:50 AM SERVER SOFTWARE ENGINEER): Health Maintenance: -PCV20: N/A -Tdap vaccine: 2022 [...] CDT Gender Identity Female 09/18/2023 8:46 PM SERVER SOFTWARE ENGINEER Sexual Orientation Straight 09/18/2023 8: 46 PM SERVER SOFTWARE ENGINEER Last Filed Vital Signs Vital Sign Reading [...] Most Recently Relevant to Health Maintenance Insurance [facility] Care Teams Form Raiser Relationship Specialty Start Date End Date Perla Muñoz PA [address] [place] [address] PCP - General Family Medicine 10/02/23
--- OUTSIDE RECORDS SUMMARY | 2025-01-01 01:04 | XMS_ITS | Clinical Summary ---
Author Organization [facility] Address [address] [place] [address] Care Team Providers Care Jinriksha Driver Name Role Phone Unavailable Primary Care Provider Unavailabl e Source Comments [facility],non-owned Affiliates and Associated Physician Practices is amultiple site organization consisting of ambulatory clinics and hospital sitesin [place], [place], [place] and [place]. This disclosure is being madepursuant to the Care Everywhere program and may not contain all information available regarding this patient. Last updated 18.[facility] Allergies No known active allergies Medications * Be aware that medications may not be up to date on this document. Alwaysverify current medications with the patient. Vit-DSS-Fe Fum-FA ( vitamin with iron) tablet Take 1 (one) tablet by mouth once daily Active ferrous sulfate 325 (65 FE) MG tablet Take 1 (one) tablet by mouth once daily Active pyridoxine (Vitamin B-6) 25 MG tablet Take 2 (two) tablets by mouth once daily Active doxylamine (Sleep Aid, Doxylamine,) 25 MG tablet Take 1 (one) tablet by mouth nightly as needed for Insomnia Active cyanocobalamin (Vitamin B-12) 100 MCG tablet Take 1 (one) tablet by mouth once daily Active vitamin D3 (Cholecalcifero l) 25 MCG (1000 UNITS) tablet Take 1 (one) tablet by mouth once daily Active albuterol HFA (Proventil; Ventolin; Proair) 108 (90 Base) MCG/ACT inhaler Inhale 2 (two) puffs by mouth every 6 hours as needed Active Encounters Date Type Department Care Team Description 12/10/2024 12:48 PM CDT - 12/10/2024 11:59 PM CDT Hospital Encounter [facility] [address] [place] [address] Balbir Mcneill MD Discharge Disposition: Home or Self Care 12/10/2024 12:48 PM CDT - 12/10/2024 11:59 PM CDT Hospital Encounter [facility] [address] [place] [address] Balbir Mcnelil MD Discharge Disposition: Home or Self Care from Last 3 Months Social History Tobacco Use Types Packs/Day Years Used Date Smoking Tobacco: Never Smokeless Tobacco: Never Alcohol Use Standard Drinks/Week Comments Not Currently 0 (1 standard drink = 0.6 oz pur e alcohol) Estimated Date of Delivery Comme nts Yes 01/08/2025 Based on last me nstrual period of 04/03/2024 Sex and Gender Information Value Date Recorded Sex Assigned at Not on file Legal Sex Female 12:02 PM CDT Gender Identity Not on file Sexual Orientation Not on file Last Filed Vital Signs Vital Sign Reading Time Taken Comments Blood Pressure 135/79 12/10/2024 1:14 PM CDT Pulse 72 12/10/2024 1:14 PM CDT Temperature - - Respiratory Rate - - Oxygen Saturation 99% 12/10/2024 1:14 PM CDT Inhaled Oxygen Concentration - - Weight 87.5 kg (193 lb) 12/10/2024 1:14 PM CDT Height 165.1 cm (5' 5) 12/10/2024 1:14 PM CDT Body Mass Index 32.12 12/10/2024 1:14 PM CDT Plan of Treatment Health Maintenance Due Date Last Done Comments PAP SMEAR 1993 HIV SCREENING 2008 HEPATITIS C SCREENING 10/22/2011 DTAP/TDAP/TD VACCINES (1 - Tdap) 2012 HEPATITIS B VACCINE (1 of 3 - 19+ 3-dose series) 2012 COVID-19 VACCINE ( - 2023-2 5 season) 2024 DEPRESSION SCREENING 08/06/2024 OB-ONE HOUR GLUCOSE 10/02/2024 OB-TDAP CURRENT 10/09/2024 OB-RHOGAM INJECTION 10/16/2024 OB-GROUP B STREP SCREEN 12/04/2024 INFLUENZA VACCINE (Season Ended) 2025 04/26/2022, 06/01/2011, 05/27/2009 ZOSTER VACCINE (1 of 2) 10/27/2043 HIB VACCINE Aged Out No longer eligi ble based on patient's age to complete this topic HPV VACCINE Aged Out No longer eligi ble based on patient's age to complete this topic MENINGOCOCCAL (Group B) VACCINE SHARED DECISION-MAKING Aged Out No longer eligible based on patient's age to complete this topic MENINGOCOCCAL GROUPS A/C/Y/W VACCINE Aged Out No longer eligible b ased on patient's age to complete this topic PNEUMOCOCCAL VACCINE Aged Out No long er eligible based on patient's age to complete this topic Respiratory Syncytial Virus (RSV) Vaccine Pt: or over 60 yrs (No Doses Required) Completed Procedures Procedure Name Priority Date/Time Associated Diagnosis Comments SONOGRAM - COMPLETE Routine 12/10/2024 1 :23 PM CDT 35 weeks gestation of (HCC) Gestational diabetes mellitus (GDM), antepartum, gestational diabetes method of control unspecified (HCC) History of primary section Encounter for ultrasound ([facility]) from Last 3 Months Results * SONOGRAM - COMPLETE (12/10/2024 1:23 PM CDT) Linked Results Indication ======== GDM-A1, Class I obesity History ====== OB History 3. Para 1 [id number] 1. miscarriage 2018 2. live 2022. Gest. age 41 w + 0 d. Weight 3,458 g. Sex of child: male. Details: delivery; GHTN Lab Tests Test Date Result NIPT Low risk, Female Maternal Assessment Physical Exam Height 165 cm, 5 ft 5 in. Weight 88 kg, 193 lb. Initial weight 83 kg, 183 lb. BMI 32.12 kg/m . Initial BMI 30.45 kg/m . Weight gain 5 kg, 10 lb Method ====== Transabdominal ultrasound. View: Suboptimal view: limited by late gestational age ========= Barnes . Number of fetuses: 1 Dating ====== Date Details Gest. age JAMILA LMP 04/03/2024 35 w + 6 d 01/08/2025 Previous U/S 06/03/2024 GA, GA 9 w + 0 d 36 w + 1 d 01/06/2025 Assigned dating based on the LMP, selected on 12/10/2024 35 w + 6 d 01/08/2025 General Evaluation Cardiac activity present. FHR 159 bpm. Presentation: cephalic Placenta: Placental site: anterior Umbilical cord: Cord vessels: 3 vessel cord. Insertion site: normal insertion Amniotic Fluid Assessment == Amount of AF: normal MVP 6.3 cm. CHRISTINA 15.0 cm. Q1 6.3 cm, Q2 4.3 cm, Q3 4.4 cm, Q4 0.0 cm Biophysical Profile 2: breathing movements 2: Gross body movements 2: tone 2: Amniotic fluid volume NST: reactive 05/15 Biophysical profile score Non Stress Test NST interpretation: reactive. Baseline FHR 135 bpm. Baseline variability: moderate. Accelerations: present Biometry BPD 90.6 mm 36w 5d 80% Hadlock HC 332.3 mm 37w 6d 70% Hadlock AC 319.0 mm 35w 6d 59% Hadlock Femur 69.5 mm 35w 5d 40% Hadlock Humerus 62.3 mm 36w 0d 74% Sandor HC / AC 1.04 Weight Calculation: EFW 2,849 g 57% Hadlock EFW (lb,oz) 6 lb 4 oz EFW by Hadlock ([id number]-OI-GQ-FL) appropriate Growth Overview Exam date GA BPD (mm) HC (mm) AC (mm) FL (mm) HL (mm) EFW (g) 12/10/2024 35w 6d 90.6 80% 332.3 70% 319 59% 69.5 40% 62.3 74% 2849 57% Anatomy The following structures appear normal: Head / Neck Cranium. Choroid plexus. Midline falx. Cavum septi pellucidi. Cerebellum. Thalami. Face Lips. Profile. Nose. Heart / Thorax 4-chamber view. RVOT view. LVOT view. Aortic arch view. Diaphragm. Abdomen Stomach. Kidneys. Bladder. Bowel. Genitals. Spine Cervical spine. Thoracic spine. Lumbar spine. Sacral spine. Extremities / Skeleton Right arm. Legs. The following structures could not be adequately visualized: Head / Neck Lateral ventricles. Cisterna magna. Face Orbits. Heart / Thorax 3-vessel view. 4-vhpkyl-sbgzcud view. Situs. Bicaval view. Ductal arch view. Interventricular septum. Great vessels. Right lung. Left lung. Abdomen Cord insertion. Extremities / Skeleton Arms. Hands. Left arm. Feet. sex: female. Maternal Structures Right Ovary Not visualized Left Ovary Not visualized Impression ========= * Barnes IUP at 35 weeks of gestation by stated EDC from LMP & early U/S * Referred to [facility] for obstetrical U/S & request for consult secondary to: Gestational diabetes mellitus (GDM) A1 * Today's ultrasound (U/S) findings: Living barnes intrauterine fetus growth is in the normal range Amniotic fluid volume appears normal Placenta is anterior, no evidence of morbid placental invasion Comprehensive anatomic survey appears normal, but is incomplete Biophysical profile (BPP) is normal (05/15) COUNSELING & RECOMMENDATIONS (PLEASE SEE FULL CONSULT IN EPIC) * In my best medical opinion, I would advise: Please also see today's separate note from our [facility] Television Production Clerk Follow-up with our [facility] Television Production Clerk to review CBGs & DM management in 1 week Follow-up U/S with [facility] if later indicated Continue testing (e.g. NST+BPP or NST+CHRISTINA) with her OB The record states the prior C/S was classical I advise reviewing the prior C/S Op Note If classical hysterotomy, repeat C/S at 36w0d to 37w0d per ACOG Delivery planning (timing, mode, location): When: assuming no new problems & no prior classical, deliver in the 39th week Where: assuming no new problems, deliver at local hospital How: she is planning repeat C/S Follow-up ======== 1 week Coding ====== Procedures 46023: Biophysical Profile W NST 72388: US Preg Uterus Detailed [facility] [email or web address] PACS Anatomical Region Laterality Modality Other 12/10/2024 1:23 PM CDT us Rivera Le MD [facility] ORDERABLES Edited Result - Final from Last 3 Months Insurance [facility]
--- OUTSIDE RECORDS SUMMARY | 2025-01-01 01:04 | XMS_ITS | Clinical Summary ---
Author Organization [employer] [address] Address [address] [place] [address] Care Team Providers Care Bilingual Customer Service Name Role Phone Talita Gilliam MD Primary Care Provider [phone] Allergies No known active allergies Medications albuterol [...] Alive Father Shannon Granda Alive Maternal Grandfather Jamrai Leal Maternal Grandmother Dimple Mel Mother Daisha Granda Alive Paternal Grandfather Jamari Davidknadi Sister Enid Granda Alive Social History Tobacco Use Types Packs/Day Years Used Date Smoking Tobacco: Never Smokeless Tobacco: Never Tobacco Cessation:Counseling Given: Not Answered Alcohol Use Standard Drinks/Week Comments Yes 0 (1 standard drink = 0.6 oz pur e alcohol) Comments No Sex and Gender Information Value Date Recorded Sex Assigned at Not on file Legal Sex Female 9:21 AM 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 See individual assays for performing site location. CLINICAL INFORMATION [facility] Comment:Information not prov ided LAST MENSTRUAL PERIOD [facility] Comment:INFORMATION NOT PROV IDED PREV PAP: [facility] Comment:INFORMATION NOT PROV IDED PREV BX: [facility] Comment:INFORMATION NOT PROV IDED SOURCE [facility] Comment:Endocervix ADEQUACY: [facility] Comment: Satisfactory for evaluation. Endocervical/transformation zone component present. Age and/or menstrual status not provided PAP INTERP [facility] Comment:Negative for intraep ithelial lesion or malignancy. COMMENT (PAP TEST) [facility] Comment: This Pap test has been evaluated with computer assisted technology. RUBBER TUBING BACKER: [facility] Comment: LMT, CT(ASCP) CT screening location: [place] [address] [place] [address] EXPLANATORY NOTE Que Appear Here [facility] Comment: EXPLANATORY NOTE: The Pap is a [...] C TRAC RNA NOT DETECTED NOT DETECTED [facility] N.GONORRHOEAE RNA, TMA NOT DETECTED NOT DETECTED [facility] COMMENT INFECTIOUS DISEASE [facility] Comment: The analytical performance characteristics of this assay, when used to test SurePath(TM) specimens have been determined by [facility]. The modifications have not been cleared or approved by the FDA. This assay has been validated pursuant to the CLIA regulations and is used for clinical purposes. For additional information, please refer to https://education.CliqSearch/faq/AVQ399 (This link is being provided for information/ educational purposes only.) Test Performed at: [facility] [address] [place] [address] Sreedhar Luna D.O., MPH SL Genital SWAB OF ENDOCERVIX / Unknown 02/02/2022 4:28 PM CDT 02/03/2022 3:12 AM CDT Idalia Caruso MD PATHOLOGY/CYTOLOGY ORD ERABLES Final Result [facility] [phone] [facility] [address] [place] [address] from Last 3 Months or Most Recently Relevant to Health Maintenance Insurance [facility] MEDICAID Advance Directives For more information, please contact: [phone] * Full Code (Latest Code Status on File) Date Activated Date Inactivated Comments 01/26/2022 4:59 PM 01/27/2022 1:52 AM Care Teams Bilingual Customer Service Relationship Specialty Start Date End Date Talita Gilliam MD [address] [place] [address] PCP - General Family Practice 09/29/20
[2025-01-01 05:51] LABS: Basophils Percent Auto 0.3 % (0.2-1.2); Eosinophils Percent Auto 0.6 % (0-4.4); Hematocrit 35.9 % (37.0-47.0); Immature Granulocyte Absolute 0.02 K/mm3 (0.00-0.031); Immature Granulocyte Percent A 0.3 % (0-0.5); Lymphocytes Absolute Auto 1.82 K/mm3 (0.9-3.2); Lymphocytes Percent Auto 27.5 % (18.3-44.2); Mean Corpuscular HGB Conc 33.4 g/dl (32-36); Mean Corpuscular Hemoglobin 29.7 pg (26-34); Mean Corpuscular Volume 88.9 fl (80-100); Mean Platelet Volume 10.2 fl (7.4-10.4); Monocytes Absolute Auto 0.3 K/mm3 (0.1-0.6); Monocytes Percent Auto 4.4 % (2.6-8.5); Neutrophils Absolute Auto 4.4 K/mm3 (1.3-6.7); Neutrophils Percent Auto 66.9 % (45.5-73.1); Platelet Count Result 186 k/mm3 (150-375); Red Blood Count 4.04 M/mm3 (4.2-5.4); White Blood Count 6.6 K/mm3 (4.5-10.0)
--- NOTE | 2025-01-01 05:55 | LDADM ---
This patient, Megan Granda, was admitted to Labor/Delivery/Recovery 119 on 01/01/25 at 05:18. Plans for labor, pain management and were discussed with patient. Patient/family oriented to hospital policies and general routines including ID bracelet, bed and alarms, visiting hours, pain management, procedures, bathroom and other care routines, personal items, smoking policy, room service/diet and guest tray routines, infant security routines, and visiting hours. Patient/Family are encouraged to report perceived risks to care and to ask questions if they do not understand what they are told or what they should do. See OBIX for further documentation.
[2025-01-01 05:58] LABS: Anion Gap 10 mmol/L (4-12); Blood Urea Nitrogen 6 mg/dL (7-17); Calcium 8.9 mg/dL (8.4-10.2); Carbon Dioxide 18 mmol/L (22-30); Chloride 106 mmol/L (98-107); Estimated Glomerular Filt Rate > 60; Glucose 189 mg/dL (65-110); Potassium 3.5 mmol/L (3.4-5.0); Sodium 134 mmol/L (137-145)
[2025-01-01] MEDS: LACTATED RINGERS 1,000 ML 125 ML IV CONT (06:22)
[2025-01-01] MEDS: ACETAMINOPHEN 500 MG TABLET 1000 MG PO (06:23)
[2025-01-01] MEDS: ONDANSETRON INJ 4 MG/2 ML VIAL IV PUSH (06:24)
[2025-01-01] MEDS: FAMOTIDINE 20 MG/2 ML VIAL IV PUSH (06:24)
[2025-01-01] MEDS: ceFAZolin 2 GM/D5W 50 ML 2 GM/50 ML BAG IVPB (06:25)
[2025-01-01 06:36] LABS: Syphilis IgG/IgM Antibody Negative (Negative)
[2025-01-01 06:39] LABS: HIV 1/2 Ab P24 Ag Result Negative (Negative)
--- NOTE | 2025-01-01 07:27 | PM.IMHP ---
H&P: HPI History of Present Illness Date/Time: 01/01/25 07:27 Chief Complaint: Intrauterine at term prior gestational diabetes Narrative: 29 yo at 39w0d who presents for repeat . Her has been complicated by gestational diabetes Review of Systems Cardiovascular: Cardiovascular: Denies chest pain, Denies leg edema, Denies palpitations, Denies dyspnea and Denies dyspnea on exertion Respiratory: Respiratory: Denies cough, Denies dyspnea and Denies dyspnea on exertion Gastrointestinal: Gastrointestinal: Denies abdominal pain, Denies constipation, Denies diarrhea, Denies nausea and Denies vomiting Genitourinary: Genitourinary: Denies hematuria, Denies urinary frequency, Denies dysuria, Denies pelvic pain, Denies urinary incontinence and Denies vaginal discharge Neurologic: Reports system reviewed and no additional complaints, except as documented Psychiatric: Psychiatric: Reports no additional psychiatric complaints Endocrine: Endocrine: Denies palpitations PMFSH Past Medical History Medical History Abnormal glucose tolerance in Asthma Anxiety and depression Overweight (BMI 25.0-29.9) and not yet delivered Surgical History Surgical History History of delivery Family History Family History Grandparent Heart disease Lung cancer Other Alzheimer's dementia Social History Social History Smoking status: Never smoker Second hand tobacco smoke exposure: No Alcohol intake: never Substance use: never Do You Feel Safe in your Home?: Yes Lack of Transportation: No Lack of Food: Never True Current Housing: I Have Housing Concerned About Future Housing: No Difficulty Paying Gas/Electric Bills: No Difficulty Paying for Meds: No Currently Unemployed: No Education: Bachelor's Degree Difficulty w/ Childcare or Family Care: No Occupation/Education: occupation 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 Gender identity (if verbalized by the patient): Female Sexual Orientation (if Verbalized by the Patient): Straight or Heterosexual Spiritual care concerns: No Meds Home Medications and Allergies Home Medications ?Medication ?Instructions ?Recorded ?Confirmed ?Type prenat.vits,mimi,hgk-sbkr-znwbe 1 tablet PO DAILY 06/20/22 01/01/25 History cholecalciferol (vitamin D3) 10 10 mcg PO DAILY 10/06/24 01/01/25 History mcg (400 unit) capsule doxylamine succinate 25 mg tablet 25 mg PO QHS PRN nausea 10/06/24 01/01/25 History (Unisom (doxylamine)) vitamin B complex 1 tablet PO HS 10/06/24 01/01/25 History ferrous sulfate 325 mg (65 mg 325 mg PO DAILY 11/20/24 01/01/25 History iron) tablet Allergies Allergy/AdvReac Type Severity Reaction Status Date / Time No Known Allergies Allergy Verified 01/01/25 05:48 Vital Signs Vital Signs - 24 hr 01/01/25 05:31 01/01/25 05:45 01/01/25 05:52 Pulse Rate 90 92 Blood Pressure 148/93 H 139/98 H Oxygen Delivery Room Air 01/01/25 06:00 01/01/25 06:15 Pulse Rate 101 H 101 H Blood Pressure 137/93 H 128/97 H Oxygen Delivery Exam Const: General: no acute distress Eyes: EOM: EOMs intact bilaterally Neck: Neck: supple Thyroid: thyroid normal Chest: Breast/axilla inspection: normal inspection of the breasts Breast/axilla palpation: normal palpation of the breasts, normal palpation of the axillae and no axillary lymphadenopathy Resp: Effort & Inspection: normal respiratory effort Auscultation: clear to auscultation bilaterally Cardio: Rate: regular rate Rhythm: regular rhythm GI: Inspection: non-distended and other (Gravid) GI Palp: Yes Soft to palpation, No Tenderness to palpation present (GI) and No Guarding due to palpation present (GI) Auscultation: normal bowel sounds : Speculum Exam - Vagina: No vaginal bleeding OB/external & speculum: external exam normal; No vaginal bleeding Skin: General skin exam: normal color and no rashes or lesions noted Neuro: Cognition (Neuro): normal cognition Speech: normal speech Extrem: General: normal to inspection Psych: Mental Status: mental status grossly normal Affect: normal affect H&P: Results Labs Labs: Short CBC 01/01/25 Range/Units 05:44 WBC 6.6 (4.5-10.0) K/mm3 Hgb 12.0 (12.0-15.0) g/dL Hct 35.9 L (37.0-47.0) % Plt Count 186 (150-375) k/mm3 BMP 01/01/25 05:43 Sodium 134 L Potassium 3.5 Chloride 106 Carbon Dioxide 18 L BUN 6 L Creatinine 0.48 L Glucose 189 H Calcium 8.9 Assessment and Plan Assessment and plan (1) , delivered: Code(s): O80 - Encounter for full-term uncomplicated delivery Status: Acute Assessment and Plan: admit t0 L&D routine admission orders Rh+ GBS neg plan for repeat (2) Gestational diabetes: Code(s): O24.419 - Gestational diabetes mellitus in , unspecified control Status: Acute (3) History of section complicating : Code(s): O34.219 - Maternal care for unspecified type scar from previous delivery Status: Acute
--- NOTE | 2025-01-01 07:28 | P.PNAN_ITS ---
Anes - Initial Pre Proc Eval Procedure: Operation Date: 01/01/25 13:00 Proposed Procedures p Repeat Section - Rivera Le MD Date/Time: 01/01/25 07:28 Surgeon: Rivera Le MD Pre Op Diagnosis: Patient Data Age: 29 Gender: F Height: 1.65 m Weight: 88.63 kg Last Vital Signs Pulse 101 H 01/01/25 06:15 BP 128/97 H 01/01/25 06:15 O2 Del Method Room Air 01/01/25 05:52 Allergies Allergy/AdvReac Type Severity Reaction Status Date / Time No Known Allergies Allergy Verified 01/01/25 05:48 Home Medications ?Medication ?Instructions ?Recorded ?Confirmed ?Type prenat.vits,mimi,szw-vsyz-jdybx 1 tablet PO DAILY 06/20/22 01/01/25 History cholecalciferol (vitamin D3) 10 10 mcg PO DAILY 10/06/24 01/01/25 History mcg (400 unit) capsule doxylamine succinate 25 mg tablet 25 mg PO QHS PRN nausea 10/06/24 01/01/25 History (Unisom (doxylamine)) vitamin B complex 1 tablet PO HS 10/06/24 01/01/25 History ferrous sulfate 325 mg (65 mg 325 mg PO DAILY 11/20/24 01/01/25 History iron) tablet Laboratory Tests 01/01/25 01/01/25 01/01/25 05:42 05:43 05:44 WBC 6.6 K/mm3 (4.5-10.0) RBC 4.04 L M/mm3 (4.2-5.4) Hgb 12.0 g/dL (12.0-15.0) Hct 35.9 L % (37.0-47.0) MCV 88.9 fl (80-100) MCH 29.7 pg (26-34) MCHC 33.4 g/dl (32-36) RDW 13.0 % (11.5-14.5) Plt Count 186 k/mm3 (150-375) MPV 10.2 fl (7.4-10.4) Immature Gran % (Auto) 0.3 % (0-0.5) Neut % (Auto) 66.9 % (45.5-73.1) Lymph % (Auto) 27.5 % (18.3-44.2) [place] % (Auto) 4.4 % (2.6-8.5) Eos % (Auto) 0.6 % (0-4.4) Baso % (Auto) 0.3 % (0.2-1.2) Lymph # (Auto) 1.82 K/mm3 (0.9-3.2) [place] # (Auto) 0.3 K/mm3 (0.1-0.6) Eos # (Auto) 0.0 K/mm3 (0-0.3) Baso # (Auto) 0.0 K/mm3 (0.0-0.1) Abs Immat Gran (auto) 0.02 K/mm3 (0.00-0.031) Absolute Neuts (auto) 4.4 K/mm3 (1.3-6.7) Absolute Nucleated RBC 0.000 K/mm3 (0.0-0.012) Nucleated RBC % 0.0 % (0.0-0.2) Sodium 134 L mmol/L (137-145) Potassium 3.5 mmol/L (3.4-5.0) Chloride 106 mmol/L (98-107) Carbon Dioxide 18 L mmol/L (22-30) Anion Gap 10 mmol/L (4-12) BUN 6 L mg/dL (7-17) Creatinine 0.48 L mg/dL (0.7-1.0) Estim Creat Clear Calc Not Reportable Estimated GFR > 60 (59 - ) Glucose 189 H mg/dL (65-110) Calcium 8.9 mg/dL (8.4-10.2) Syphilis IgG/IgM Ab Negative (Negative) HIV 1&2 Ab/P24 Ag 4thGn Negative (Negative) Blood Type O Positive Antibody Screen Negative Patient hx anesthesia problems: none Family hx anesthesia problems: none Results Review: All pre-operative results and documents have been reviewed as part of the pre- operative evaluation. [facility] Past Medical History Medical History Abnormal glucose tolerance in Asthma Anxiety and depression Overweight (BMI 25.0-29.9) and not yet delivered Surgical History Surgical History History of delivery Family History Family History Grandparent Heart disease Lung cancer Other Alzheimer's dementia Social History Social History Smoking status: Never smoker Second hand tobacco smoke exposure: No Alcohol intake: never Substance use: never Do You Feel Safe in your Home?: Yes Lack of Transportation: No Lack of Food: Never True Current Housing: I Have Housing Concerned About Future Housing: No Difficulty Paying Gas/Electric Bills: No Difficulty Paying for Meds: No Currently Unemployed: No Education: Bachelor's Degree Difficulty w/ Childcare or Family Care: No Occupation/Education: 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 Gender identity (if verbalized by the patient): Female Sexual Orientation (if Verbalized by the Patient): Straight or Heterosexual Spiritual care concerns: No Anes - Eval Final PreProcedure Day of Procedure 01/01/25 07:28 Patient weight: obese Lungs: normal air movement Airway: Mallampati scale class II Neurological: alert and oriented Last oral intake: >/= 8 hours ASA classification: III Emergent: no Anesthetic plan: proceed Anesthesia type and monitoring: regional spinal and standard monitoring Results Review: All pre-operative results and documents have been reviewed as part of the pre- operative evaluation. Gestational DM. Prev C section now for planned C section. Plts nml. Informed Consent: The patient's anesthetic plan and its attendant risks and benefits were discussed with the patient/family/POA. Questions were solicited and answers provided to the satisfaction of the patient/family/POA.
--- NOTE | 2025-01-01 08:36 | W.PM.OBCSD ---
OB - Delivery Note Procedure Delivery date: 01/01/25 Pre-op diagnosis: Gestational Diabetes and Previous Delivery Post-op Diagnosis: Same Induction method: None Delivery monitor: External FHT Prior to decision for section, ACOG/SM labor guidelines were considered and discussed with the patient and staff. Decision made to proceed with the section.: Yes Procedure Performed: Repeat Secondary branch: low cervical, transverse Surgeon: Rivera Le MD Anesthesia type: Spinal Description of Procedure/Findings: he patient was taken to the operating room where epidural anesthesia was found to be adequate. She was then prepped and draped in the usual sterile fashion in the dorsal supine position with a leftward tilt. A Pfannenstiel skin incision was then made with the scalpel and carried through to the underlying layer of fascia. The fascia was then incised in the midline and the incision extended laterally with the Guerrero scissors. The superior aspect of the fascia was then grasped with the Nirmal clamps, elevated, and the underlying rectus muscles dissected off bluntly and sharply. Attention was then turned to the inferior aspect of this incision which, in a similar fashion, was grasped, tented up with the Nirmal clamps, and the rectus muscles dissected off both bluntly and sharply. The rectus muscles were then in the midline, and the peritoneum identified, tented up, and entered sharply with the Metzenbaum scissors. The peritoneal incision was then extended superiorly and inferiorly with good visualization of the bladder. The peritoneum was intimately adherent to the anterior uterus. This adhesions was dissected off of the uterus with Bovie cautery. The bladder blade was then inserted and the vesicouterine peritoneum identified, grasped with the pick-ups and entered sharply with the Metzenbaum scissors. This incision was then extended laterally and the bladder flap created digitally. A ring retractor was placed for better visualization. The lower uterine segment was incised in a low, transverse fashion with the scalpel. The uterine incision was then extended laterally with the bandage scissors. The bladder blade was removed and the infant?s head delivered atraumatically. The nose and mouth were suctioned with the bulb suction, and the remainder of the infant was delivered atraumatically. The cord was clamped and cut. The infant was handed off to the waiting pediatricians (staff). Cord gasses were sent. The placenta was then removed manually, the uterus exteriorized, and cleared of all clots and debris. The uterine incision was repaired with 0 monocryl in a running fashion. A second imbricating layer of 0 monocryl was also placed. Surgicell powder was used to ensure excellent hemostasis. The uterus was returned to the abdomen. The uterus was then reinspected to ensure hemostasis as were all subfascial tissues. The peritoneum was re-approximated with 3-0 vicryl in a running fashion. The fascia was reapproximated with 0 vicryl in a running fashion. The subcutaneous tissue was reapproximated using 3-0 Vicryl in a running fashion. The skin was closed with 4-0 vicryl. The patient tolerated the procedure well. Sponge, lap and needle counts were correct times three. The patient was taken to the recovery room in stable condition. Specimen: No Estimated Blood Loss: 255 Drains: No Packing: No Pathology: None sent Complications: No immediate complications Condition: Stable Disposition: [facility] Baby Date of : 01/01/25 Gestational Age by Date: 39 Infant gender: Female Weight (pounds): 7 Weight (ounces): 14 presentation: vertex Placenta delivery description: Manual Removal Cord Vessel Description: 3 Vessels score one minute: 9 score five minutes: 9
[2025-01-01] MEDS: OXYTOCIN 30 UNITS/NS 500 ML 30 UNITS/500 ML BAG 125 UNITS IV CONT (09:41)
[2025-01-01] MEDS: MORPHINE SULFATE INJ (*CRX) 10 MG/ML AMP 2 MG IV PUSH ×2 (09:54→10:07)
[2025-01-01] MEDS: SIMETHICONE 80 MG TAB.CHEW PO ×2 (10:12→16:29)
--- NOTE | 2025-01-01 10:56 | OBPPTRN ---
Patient transferred to post room # 277 via stretcher. Oriented to unit, room, information board, rooming in, admission packet and security measures. Patient verbalizes understanding.
--- NOTE | 2025-01-01 12:25 | PC.NURSE ---
Consulted with patient to assess needs related to . Discussed with mother her successes, concerns and any questions she has. Per mother she had issues with milk production with her first baby. She would like to put baby to breast while in the hospital but may just exclusively pump and bottle after discharge, she did bring her breast pump with her which we will go over later today or tomorrow. We reviewed working with the , supporting breast, protecting her nipples with an optimal deep latch, good positioning, and good hand washing. Encouraged understanding the benefits of skin to skin, responding to feeding cues, frequencies of feeding 8-12 times in 24 hours (approximately 2-3 hours), duration of feedings, milk production, intake/output feeding sheet and signs of adequate intake encouraging swallowing at the breast. Reviewed positioning and alignment, supporting breast, off-centered (asymmetrical latch) and leading with the chin with big, open, wide gape. latched optimally to the [right] breast in [football] position. Education given to the mother of how to visualize the suckling (with good rocking jaw motion) swallows (dropping of the lower jaw) and how to listen for drinking at the breast (the ka sound). The infant was [able] to maintain latch without discomfort to mother. Nipple care reviewed with optimal latch, good positioning and using clean hands when touching her breast. Resources used to facilitate learning were used from the [visual handouts/ tool/mom and baby guide]. Mother voiced understanding of the education shared, to call for assistance if the does not latch or if there is discomfort with . Reported to the Primary RN.
[2025-01-01] MEDS: ACETAMINOPHEN 325 MG TABLET 650 MG PO ×2 (13:47→18:41)
[2025-01-01] MEDS: KETOROLAC 15 MG/ML VIAL (*BKC) IV PUSH ×2 (13:47→18:41)
[2025-01-01] MEDS: LANOLIN (LANSINOH) 7.5 GM CREAM 1 APPLIC TOPICAL (13:48)
[2025-01-01] MEDS: LIDOCAINE 5% PATCH 1 PATCH TRANSDERM (13:48)
[2025-01-01] MEDS: DEXTROSE 5%/0.45% SOD CHL 1,000 ML 125 ML IV CONT (14:26)
[2025-01-01] MEDS: DOCUSATE SODIUM 100 MG CAPSULE PO (16:29)
[2025-01-01] MEDS: CHOLECALCIFEROL (VITAMIN D3) 10 MCG (400 UNITS) TABLET PO (16:29)
[2025-01-02 00:30] VITALS: BP 144/81
[2025-01-02] MEDS: KETOROLAC 15 MG/ML VIAL (*BKC) IV PUSH (00:30)
[2025-01-02] MEDS: ACETAMINOPHEN 325 MG TABLET 650 MG PO ×4 (00:30→20:00)
[2025-01-02 04:30] VITALS: BP 136/77; PULSE 74; RESP 16; TEMP 36.4; O2SAT 97
[2025-01-02 05:29] LABS: Basophils Percent Auto 0.2 % (0.2-1.2); Eosinophils Absolute Auto 0.1 K/mm3 (0-0.3); Eosinophils Percent Auto 0.7 % (0-4.4); Hematocrit 33.5 % (37.0-47.0); Hemoglobin 11.3 g/dL (12.0-15.0); Immature Granulocyte Absolute 0.05 K/mm3 (0.00-0.031); Immature Granulocyte Percent A 0.5 % (0-0.5); Lymphocytes Absolute Auto 1.85 K/mm3 (0.9-3.2); Mean Corpuscular HGB Conc 33.7 g/dl (32-36); Mean Corpuscular Hemoglobin 30.1 pg (26-34); Mean Corpuscular Volume 89.1 fl (80-100); Mean Platelet Volume 10.4 fl (7.4-10.4); Monocytes Absolute Auto 0.9 K/mm3 (0.1-0.6); Monocytes Percent Auto 9.5 % (2.6-8.5); Neutrophils Absolute Auto 6.8 K/mm3 (1.3-6.7); Neutrophils Percent Auto 70.1 % (45.5-73.1); Platelet Count Result 195 k/mm3 (150-375); Red Blood Count 3.76 M/mm3 (4.2-5.4); Red Cell Distribution Width 12.9 % (11.5-14.5); White Blood Count 9.8 K/mm3 (4.5-10.0)
[2025-01-02 07:35] VITALS: BP 138/90; PULSE 64; RESP 18; TEMP 37.3; O2SAT 98
--- NOTE | 2025-01-02 08:09 | WPDANLDPN2 ---
Anes-Prog Note L&D Date/Time: 01/02/25 08:09 Comfortable throughout: section Neuraxial method: spinal Epidural/Spinal procedure site: clean & non-tender Neuro status: Neuro function grossly intact. Cardiovascular status: normal Respiratory status: normal Airway patency: baseline Mental status: baseline Post-Op hydration status: normal Vital Signs: Last Vital Signs Temp 36.4 C 01/02/25 04:30 Pulse 74 01/02/25 04:30 Resp 16 01/02/25 04:30 BP 136/77 01/02/25 04:30 Pulse Ox 97 01/02/25 04:30 O2 Del Method Room Air 01/01/25 09:30 Pain score (VAS): 2/10 I/O: Intake & Output 01/01/25 01/02/25 01/02/25 23:59 07:59 15:59 Intake Total 500 Output Total 450 2050 Balance 50 -2050 Post-procedural complaints: pruritis moderate, treatment effective Patient feedback: Patient satisfied with anesthetic care.
--- NOTE | 2025-01-02 08:10 | WPDANLDNPN2 ---
Anes-Prog Note L&D-Neuraxial Date/Time: 01/02/25 08:10 Neuraxial medications: intrathecal PF morphine Opiod-related complaints: pruritis moderate, treatment effective Patient feedback: Patient satisfied with post-operative pain management.
[2025-01-02] MEDS: DOCUSATE SODIUM 100 MG CAPSULE PO ×2 (08:15→17:31)
[2025-01-02] MEDS: MULTIVIT/MIN/PREN/FOL AC/IRON TABLET 1 TAB PO (08:15)
[2025-01-02] MEDS: IBUPROFEN 600 MG TABLET PO ×3 (08:15→20:01)
[2025-01-02] MEDS: CHOLECALCIFEROL (VITAMIN D3) 10 MCG (400 UNITS) TABLET PO (08:15)
[2025-01-02] MEDS: SIMETHICONE 80 MG TAB.CHEW PO ×3 (08:15→17:31)
[2025-01-02 09:00] VITALS: PULSE 64; RESP 18; O2SAT 99
[2025-01-02 11:46] VITALS: BP 137/87; PULSE 62; RESP 16; TEMP 36.9; O2SAT 99
--- NOTE | 2025-01-02 11:51 | PM.OBDSVD ---
DS: Admitting Diagnosis Discharge Date 01/03/2025 Admitting Diagnosis DS: Discharge Diagnosis Discharge Diagnosis (1) , delivered: Code(s): O80 - Encounter for full-term uncomplicated delivery Status: Acute OB - DS: Summary OB Procedures : None OB Procedures Intrapartum: OB Procedures: : None Peripartum Data Procedures: Procedures Operation Date: 01/01/25 13:00 Actual Procedure Side Surgeon p Repeat Section Not Applicable Rivera Le MD Time Spent with Patient Time attestation: Total time spent providing and/or coordinating discharge services: DS: Data Data Completed and Pending Labs on day of discharge: Labs from last 24 hours 01/02/25 04:34 WBC 9.8 RBC 3.76 L Hgb 11.3 L Hct 33.5 L MCV 89.1 MCH 30.1 MCHC 33.7 RDW 12.9 Plt Count 195 MPV 10.4 Immature Gran % (Auto) 0.5 Neut % (Auto) 70.1 Lymph % (Auto) 19.0 [place] % (Auto) 9.5 H Eos % (Auto) 0.7 Baso % (Auto) 0.2 Lymph # (Auto) 1.85 [place] # (Auto) 0.9 H Eos # (Auto) 0.1 Baso # (Auto) 0.0 Abs Immat Gran (auto) 0.05 H Absolute Neuts (auto) 6.8 H Absolute Nucleated RBC 0.000 Nucleated RBC % 0.0 Discharge Plan Discharge Discharging Clinician: Rivera Le Patient Disposition: Home Activity: as tolerated and pelvic rest Diet: regular Wound Care Instructions: incision open to air Patient Instructions: Antibiotic Form, (DC) Patient Language: Ivorian Stand Alone Forms: General Discharge Information Follow-up/Referrals: Rivera Le MD [Physician] - 4 Weeks Discharge Medications: New oxycodone-acetaminophen 5-325 mg tablet 1 tablet PO Q6H PRN (Reason: pain) Qty: 28 0RF hydrocodone-acetaminophen 5-325 mg Tablet 1 tablet PO Q3H PRN (Reason: Breakthrough Pain Rated 4-6) Qty: 20 0RF ibuprofen 600 mg tablet 600 mg PO Q6H PRN (Reason: pain) Qty: 30 0RF ibuprofen 600 mg Tablet 600 mg PO Q6HR Qty: 30 0RF Continued ferrous sulfate 325 mg (65 mg iron) tablet 325 mg PO DAILY prenat.vits,mimi,bmx-eymo-axsyb Tablet 1 tablet PO DAILY Unisom (doxylamine) 25 mg tablet 25 mg PO QHS PRN (Reason: nausea) vitamin B complex Tablet 1 tablet PO HS cholecalciferol (vitamin D3) 10 mcg (400 unit) capsule 10 mcg PO DAILY Date of admission: 01/01/25 05:18 Primary Care Provider: UNKNOWN,DOCTOR Admitting Provider: Rivera Le Attending physician on admission: Rivera Le Condition: Stable
[2025-01-02] MEDS: LIDOCAINE 5% PATCH 1 PATCH TRANSDERM (14:27)
--- NOTE | 2025-01-02 15:24 | PC.NURSE ---
1210. Mother verbalizes she is able to independently latch infant with appropriate positioning and alignment. She denies any nipple discomfort and is responsively . Infant is currently meeting outcomes for weight, output, jaundice, blood sugar and feeding frequencies of 8-12 times in 24 hours. Mother declines any additional assistance or education at this time. Mother is encouraged to call for assistance if her doesn?t latch, pain with latching, questions or concerns. Mom reports she has 2 pumps for at home use: Medela and the Mahnaz hands free manual pump. She reports she also has a hakka. Reviewed with mom the importance of the correct flange size. We measured moms nipples with the flange measuring tool: size 18. Mom instructed on checking with her specific pump to determine if she should add 2-3 mm to get the correct flange size or use her actual nipple size of 18. Mom has tried to pump with her personal pump but states she hasn't gotten any milk collected yet. RN asked mom if she would like a [facility] referral on d/c. [facility] [place] [facility]. Mother voiced understanding of information shared along with the mom/baby guide for an additional resource. Reported to the Primary RN.
[2025-01-02 20:04] VITALS: BP 153/97; PULSE 71; RESP 16; TEMP 37.1; O2SAT 99
[2025-01-02] MEDS: HYDROcodone/acetaminophen (*CRX) 5-325 MG TABLET 1 TAB PO (21:27)
[2025-01-03] MEDS: ACETAMINOPHEN 325 MG TABLET 650 MG PO ×2 (05:40→12:02)
[2025-01-03] MEDS: IBUPROFEN 600 MG TABLET PO ×2 (05:40→12:02)
[2025-01-03 08:00] VITALS: PULSE 68; RESP 19; O2SAT 98
[2025-01-03 08:05] VITALS: BP 154/84; PULSE 68; RESP 19; TEMP 36.7; O2SAT 98
--- NOTE | 2025-01-03 08:45 | PC.NURSE ---
Observed mother with baby latched to the right breast in football hold. She declines pain other than initial latch on that goes away. Baby has been cluster feeding and mom is encouraged to allow baby unlimited access to the breast. Reviewed standard discharge information with patient including monitoring for required output, transition of stools, feeding 8-12 times every 24 hours, milk production, and follow up at [facility] and with microbiological laboratory technician in the first week of life. Parents are encouraged to take the feeding log and continue to track feedings and output for the first week . Offered outpatient resources with [facility] referral and Services at [facility]. Patient has the Mom/Baby Guide for further education and reference for common concerns, phone numbers, and guidance on when to call the doctor. A feeding plan was added to the ?s discharge plan. Patient states that she has no further questions or concerns regarding .???
[2025-01-03 09:05] VITALS: BP 151/97
[2025-01-03] MEDS: SIMETHICONE 80 MG TAB.CHEW PO ×2 (09:22→12:02)
[2025-01-03] MEDS: DOCUSATE SODIUM 100 MG CAPSULE PO (09:23)
[2025-01-03] MEDS: CHOLECALCIFEROL (VITAMIN D3) 10 MCG (400 UNITS) TABLET PO (09:23)
[2025-01-03] MEDS: MULTIVIT/MIN/PREN/FOL AC/IRON TABLET 1 TAB PO (09:23)
[2025-01-03 11:53] VITALS: BP 142/93; PULSE 83; RESP 19; TEMP 36.7; O2SAT 97
[2025-01-05 10:17] VITALS: BP 134/77; PULSE 74; RESP 18; TEMP 37; O2SAT 99
== END 2025-01-03 13:54 | disposition home or self-care (01) | DRG 788 ==
LOC: ANHOB2 15:31 → ANHLDR 01-05 09:51 → ANHOB2 01-05 09:51
PROVIDERS: Admitting Provider Student in an Organized Health Care Education/Training Program; Visit Provider Obstetrics & Gynecology
PROC: 10D00Z1 Extraction of Products of Conception, Low, Open Approach (ICD-10-PCS; CPT 59514; principal; 2025-01-01 13:00)
DX: O34.219 Maternal care for unspecified type scar from previous cesarean delivery (principal); O24.429 Gestational diabetes mellitus in childbirth, unspecified control; O69.81X0 Labor and delivery complicated by cord around neck, without compression, not applicable or unspecified; Z3A.39 39 weeks gestation of pregnancy; Z37.0 Single live birth
CPT/HCPCS: 36415; 59025; 76819; 80048; 85025; 86593; 86703; 86850; 86900; 86901; A9270; G0432; J0690; J1596; J1885; J2270; J2274; J2371; J2405; J2590; J7120